=== PATIENT | female | born 1960 | race Caucasian/White ===

== ENCOUNTER 2020-09-24 12:59 | Outpatient (REF) | payer OTHER, SELFPAY ==
--- NOTE | ~2020-09-24 | MM_ITS ---
EXAMINATION: MM DIAGNOSTIC DIGITAL BREAST TOMOSYNTHESIS, LEFT TARGETED LEFT BREAST ULTRASOUND CLINICAL INFORMATION: Six-month follow up left breast density deep medially. Patient status post breast reduction surgery. The lifetime risk of breast cancer based on the Tyrer-Cuzick Model is 11.0%. COMPARISON: Mammography: 03/25/2020 and studies dating back to 01/31/2014. TECHNIQUE: Digital breast tomosynthesis is performed in both the craniocaudal and mediolateral oblique views along with computer-aided detection (CAD). Synthesized 2D images are generated from the tomosynthesis. Targeted left breast ultrasound deep medial aspect. FINDINGS: The breasts are almost entirely fatty (ACR BI-RADS breast composition Category a). No new abnormal dominant mass or suspicious grouping of microcalcifications identified. No region of architectural distortion. There is again noted to be 3 mm density deep medial aspect of the left breast with question fatty notch. No spiculated margins identified. Targeted left breast ultrasound was then performed and demonstrates a well-circumscribed slightly hypoechoic nodule with hyperechoic central region measuring approximately 3 x 3 x 4 mm in size. No definite distal sound enhancement or shadowing is seen. There is some vascularity in the region of the questioned notch and this likely represents an intramammary lymph node. Results are discussed with the patient at time of visit. MM/MM tomosynthesis diagnostic LT IMPRESSION: No significant change from prior study. The density about the deep medial aspect of the left breast may represent an intramammary lymph node. ASSESSMENT: BI-RADS 3: Probably Benign. RECOMMENDATION: Diagnostic mammography in 6 months. This patient's information was entered into a reminder system with a target due date for their next mammogram.
--- NOTE | ~2020-09-24 | US_ITS ---
EXAMINATION: US DIAGNOSTIC ULTRASOUND BREAST, LEFT CLINICAL INFORMATION: Nodular density not o'clock position 10 cm from the nipple.. COMPARISON: Mammography of same day and ultrasound of March 25, 2020. TECHNIQUE: Ultrasound of the breast is performed with real-time lopez scale imaging and color Doppler. FINDINGS: Targeted left breast ultrasound was then performed and demonstrates a well-circumscribed slightly hypoechoic nodule with hyperechoic central region measuring approximately 3 x 3 x 4 mm in size. No definite distal sound enhancement or shadowing is seen. There is some vascularity in the region of the questioned notch and is likely represents an intramammary lymph node. Results are discussed with the patient at time of visit. US/US breast LT limited IMPRESSION: No significant change from prior study. The density about the deep medial aspect of the left breast may represent an intramammary lymph node. ASSESSMENT: BI-RADS 3: Probably Benign RECOMMENDATION: Diagnostic mammography in 6 months.
== END 2020-09-24 13:00 | disposition home or self-care (01) ==
LOC: HO.MAMMO 12:59
PROVIDERS: PCP Physician Assistant; Visit Provider Obstetrics & Gynecology
DX: R92.8 Other abnormal and inconclusive findings on diagnostic imaging of breast (principal)
CPT/HCPCS: 76642; 77061; 77065

== ENCOUNTER 2021-03-09 08:09 | Outpatient (REF) | payer OTHER, SELFPAY ==
[2021-03-09 08:52] LABS: Hemoglobin 13.7 g/dl (12.0-16.0); Mean Corpuscular HGB Conc 32.6 g/dl (31.0-35.0); Mean Corpuscular Hemoglobin 31.4 pg (27.0-33.0); Mean Corpuscular Volume 96.1 fL (80-98); Platelet Count 330 X10*3/uL (160-400); Red Blood Count 4.37 X10*6/uL (4.20-5.50); Red Cell Distribution Width 13.7 % (11.0-16.0); White Blood Count 5.7 X10*3/uL (4.8-10.8)
[2021-03-09 08:57] LABS: Estimated Average Glucose 88 mg/dL; Hemoglobin A1c % 4.7 %
[2021-03-09 09:46] LABS: Alanine Aminotransferase 34 U/L (0-31); Albumin Level 4.2 g/dL (3.5-5.0); Alkaline Phosphatase 115 U/L (39-117); Anion Gap 13 (12-20); Aspartate Amino Transferase 26 U/L (5-31); Bilirubin Total 0.6 mg/dL (0.0-1.0); Blood Urea Nitrogen 12 mg/dL (9-16); Calcium 9.6 mg/dL (8.4-10.2); Carbon Dioxide 26 mmol/L (22-29); Chloride 106 mmol/L (96-108); Cholesterol 162 mg/dL; Estimated Glomerular Filt Rate > 60; Glucose Fasting 87 mg/dL (60-99); HDL Cholesterol 67 mg/dL; LDL Cholesterol Calculated 73 mg/dl; Potassium 4.3 mmol/L (3.3-5.1); Sodium 141 mmol/L (135-145); Total Protein 7.4 g/dL (6.5-8.0); Triglycerides 111 mg/dL
[2021-03-09 09:59] LABS: TSH reflex Free T4 1.87 uIU/mL (0.32-4.0)
== END 2021-03-09 08:10 | disposition home or self-care (01) ==
LOC: HO.LAB 08:09
PROVIDERS: PCP Physician Assistant; Visit Provider Physician Assistant
DX: I10 Essential (primary) hypertension (principal); Z13.220 Encounter for screening for lipoid disorders; Z13.29 Encounter for screening for other suspected endocrine disorder; Z13.1 Encounter for screening for diabetes mellitus
CPT/HCPCS: 36415; 80053; 80061; 83036; 84443; 85027

== ENCOUNTER → 2021-03-24 11:26 | Outpatient (BNVA) | payer OTHER, SELFPAY | PROVIDERS: PCP Physician Assistant; Referring Provider Physician Assistant; Visit Provider Physician Assistant ==

== ENCOUNTER 2021-04-01 13:46 | Outpatient (REF) | payer OTHER, SELFPAY ==
--- NOTE | ~2021-04-01 | MM_ITS ---
EXAMINATION: MM DIAGNOSTIC DIGITAL BREAST TOMOSYNTHESIS, BILATERAL US DIAGNOSTIC ULTRASOUND BREAST, LEFT CLINICAL INFORMATION: Due for yearly. Also follow-up probable benign nodule posterior medial left breast. Prior history reduction mammoplasty decades ago. The lifetime risk of breast cancer based on the Tyrer-Cuzick Model is 8%. COMPARISON: Mammography: 09/24/2020, 03/25/2020, 02/14/2020 (BI-RADS 0), outside synthesized [facility] mammography images 12/05/2018 there are, 12/04/2017, [facility], [place], [place]). TECHNIQUE: Digital breast tomosynthesis is performed in both the craniocaudal and mediolateral oblique views along with computer-aided detection (CAD). Synthesized 2D images are generated from the tomosynthesis. Additional left CC view is provided. Ultrasound left breast is targeted to the inner quadrant. Grayscale imaging is performed without and with harmonics and color and power Doppler. FINDINGS: The breasts are almost entirely fatty (ACR BI-RADS breast composition Category a). Background fibroglandular and stromal densities are stable. There is no interval mass or architectural abnormality. No developing density. There are no abnormal calcifications. The axilla and skin contours are unremarkable. The small nodule posterior medial breast adjacent to chest wall is beyond field of view on current exam and also beyond field of view on the outside mammography studies. Ultrasound left breast demonstrates stable circumscribed hypoechoic nodule deep medial left breast approximately 10 cm from nipple measuring under 5 mm. The size and appearance is similar to prior targeted ultrasound exams. There is a punctate focus of peripheral internal color flow again seen, better appreciated with power Doppler. No significant change from prior diagnostic exams. Results are discussed with the patient at time of visit. Will reassess left breast nodule in 6 months with targeted ultrasound. MM/MM tomosynthesis diagnostic BI IMPRESSION: 1. Left: Small stable nodule deep medial breast, uncertain chronicity (beyond field of view on outside mammography studies). 2. Right: No mammographic evidence of malignancy. ASSESSMENT: BI-RADS 3: Probably Benign RECOMMENDATION: Targeted left breast ultrasound in 6 months. This patient's information was entered into a reminder system with a target due date for their next mammogram.
== END 2021-04-01 13:47 | disposition home or self-care (01) ==
LOC: HO.MAMMO 13:46
PROVIDERS: Visit Provider Obstetrics & Gynecology
DX: R92.8 Other abnormal and inconclusive findings on diagnostic imaging of breast (principal)
CPT/HCPCS: 76642; 77062; 77066

== ENCOUNTER 2021-06-03 09:12 | Day surgery (SDC) | payer OTHER, SELFPAY ==
[2021-05-28 11:18] VITALS: BMI 28.5
--- NOTE | 2021-06-02 12:06 | HO.ANESPROP2 ---
Documented by User: Jeniffer Huff NP 06/02/21 12:07 HPI - Anesthesia Eval Consult details Narrative: 60yo F for Colonoscopy PMFSH Active Problems Active Problems: All Active Problems (Updated 03/29/21 @ 16:33 by Tello Tapia PA-C) MDD (major depressive disorder) (Acute) Perimenopausal vasomotor symptoms (Acute) Screening for diabetes mellitus (DM) (Acute) Screening for hypothyroidism (Acute) Screening for hypercholesterolemia (Acute) Annual physical exam (Acute) Colon cancer screening (Acute) Arm paresthesia, left (Acute) Neck pain (Acute) Allergic rhinitis (Acute) Anxiety and depression (Acute) Scar tissue (Acute) Post-COVID syndrome (Acute) Past Medical History Medical History Anxiety and depression Normal colonoscopy Post-COVID syndrome Scar tissue Family History Family History Father Non-Hodgkin lymphoma Mother No problems noted. Brother Heart problem Other Mental health disorder Surgical History Surgical History History of section History of reduction mammoplasty Hx of cholecystectomy Social History Social History Housing: House Are you a primary childbirth and infant care teacher to a significant other at home: No Do you presently have visiting nurse or other home services: No Alcohol intake: current Alcohol intake frequency: a few times a week Alcohol type: wine Patient Tobacco Use Status: Never used Tobacco Use of substances other than those prescribed or required for medical reasons: No Have you been hit, kicked, punched, or otherwise hurt by someone within the past year? If so, by whom?: No Are you DNR?: No Advance Directives: No Advance Directives Information Provided: No Advance Directives on File: No Recently lost weight without trying: No Eating poorly because of decreased appetite: No Nutrition Risks: No Nutritional Risk Patient : No service: No Current occupational status: retired Meds Allergies Allergy/AdvReac Type Severity Reaction Status Date / Time metoclopramide [Reglan] Allergy Unknown disorientated, Verified 05/28/21 11:14 Tachycardia, anxious Seasonal Allergies Allergy Sneezing, Verified 11/12/21 11:16 Cough, Allergic Cold Home Medications Medication Instructions Recorded Confirmed Last Taken Type estradiol 1 mg tablet 1 mg PO DAILY 07/01/20 05/28/21 Unknown History progesterone micronized 200 mg 200 mg PO BEDTIME 07/01/20 05/28/21 Unknown History capsule ascorbic acid (vitamin C) 500 mg 500 mg PO DAILY 05/28/21 05/28/21 Unknown History tablet (Vitamin C) calcium carbonate-vitamin D3 600 1 tab PO DAILY 05/28/21 05/28/21 Unknown History mg calcium-200 unit chewable tablet cholecalciferol (vitamin D3) 25 25 mcg PO DAILY 05/28/21 05/28/21 Unknown History mcg (1,000 unit) capsule (Vitamin D3) Exam Exam Date and Time: June 02, 2021 1206 Height,Weight and Vital Signs: Height 5 ft 4 in Weight 75.296 kg Pertinent Lab Results Pertinent Lab Results: Laboratory Tests 03/09/21 03/09/21 08:22 08:22 WBC 5.7 Hgb 13.7 Hct 42.0 Plt Count 330 Sodium 141 Potassium 4.3 Chloride 106 Carbon Dioxide 26 BUN 12 Creatinine 0.94 Assessment and Plan Assessment Anesthesia Assessment: Chart Reviewed Documented by User: Kiara Dominguez MD 06/03/21 10:21 [facility] Past Medical History Medical History Anxiety and depression Normal colonoscopy Post-COVID syndrome Scar tissue Family History Family History Father Non-Hodgkin lymphoma Mother No problems noted. Brother Heart problem Other Mental health disorder Surgical History Surgical History History of section History of reduction mammoplasty Hx of cholecystectomy History of Problems with Anesthesia: No Social History Social History Housing: House Are you a primary childbirth and infant care teacher to a significant other at home: No Do you presently have visiting nurse or other home services: No Alcohol intake: current Alcohol intake frequency: a few times a week Alcohol type: wine Patient Tobacco Use Status: Never used Tobacco Use of substances other than those prescribed or required for medical reasons: No Have you been hit, kicked, punched, or otherwise hurt by someone within the past year? If so, by whom?: No Are you DNR?: No Advance Directives: No Advance Directives Information Provided: No Advance Directives on File: No Recently lost weight without trying: No Eating poorly because of decreased appetite: No Nutrition Risks: No Nutritional Risk Patient : No service: No Current occupational status: retired Meds Allergies Allergy/AdvReac Type Severity Reaction Status Date / Time metoclopramide [Reglan] Allergy Unknown disorientated, Verified 05/28/21 11:14 Tachycardia, anxious Seasonal Allergies Allergy Sneezing, Verified 05/28/21 11:16 Cough, Allergic Cold Home Medications Medication Instructions Recorded Confirmed Last Taken Type estradiol 1 mg tablet 1 mg PO DAILY 07/01/20 05/28/21 Unknown History progesterone micronized 200 mg 200 mg PO BEDTIME 07/01/20 05/28/21 Unknown History capsule ascorbic acid (vitamin C) 500 mg 500 mg PO DAILY 05/28/21 05/28/21 Unknown History tablet (Vitamin C) calcium carbonate-vitamin D3 600 1 tab PO DAILY 05/28/21 05/28/21 Unknown History mg calcium-200 unit chewable tablet cholecalciferol (vitamin D3) 25 25 mcg PO DAILY 05/28/21 05/28/21 Unknown History mcg (1,000 unit) capsule (Vitamin D3) Exam Airway Mallampati Class: II TM Dist: >3cm Neck ROM: Full Loose/Missing/Broken Teeth: No Heart: RRR Lungs: CTA Assessment and Plan Assessment Anesthesia Assessment: Anesthesia Plan Discussed Final Anesthetic Review History of Problems with Anesthesia: No NPO: Yes ASA Class: II Final Preanesthetic Review: Meds/Allgs Chart Reviewed, Consent Obtained/Reviewed and Anes Risks/Benef Reviewed Patient Risk: Low Procedure Risk: Low Anesthetic Plan Anesthetic Plan: MAC: Disposition: Standard PACU
--- NOTE | 2021-06-03 09:27 | MHC.SHP ---
Pre-Procedural Eval Section A Date of Service: 06/03/21 Section B Chief Complaint: Screening Relevant Family History (Specify if Yes): No Relevant Social History: None Present Medications: see Short Stay Collaborative assessment Medical History: Significant History (Anxiety and depression Normal colonoscopy Post-COVID syndrome Scar tissue) History of Previous Operations: Relevant previous surgery/procedure and date(s) (History of section History of reduction mammoplasty Hx of cholecystectomy) Allergies: Allergies Allergy/AdvReac Type Severity Reaction Status Date / Time metoclopramide [Reglan] Allergy Unknown disorientated, Verified 05/28/21 11:14 Tachycardia, anxious Seasonal Allergies Allergy Sneezing, Verified 05/28/21 11:16 Cough, Allergic Cold Review of Systems Sugical H&P ROS: Negative: Constitution, Cardiovascular, Respiratory, Neurological, Psychiatric, Hem-Onc, Allergic/Immunologic, Gastrointestinal, Genitourinary, Musculoskeletal, Integumentary, Endocrine and Eyes/Ears/Nose/Throat Exam Surgical H&P Exam: Normal: HEENT, Normal: Heart, Normal: Lungs, Normal: Extremities, Normal: Abdomen, Normal: Skin and Normal: Neurological Plan Diagnosis/Plan: Unchanged I have reviewed the history and physical and performed a pertinent physical examination on my patient. No changes have occurred unless specified.
[2021-06-03 09:44] VITALS: BP 141/78; PULSE 82; RESP 16; TEMP 37.2; O2SAT 97
[2021-06-03] MEDS: Lactated Ringers 1,000 ML 100 ML IVCONT (09:49)
--- NOTE | 2021-06-03 10:31 | P.BOP_ITS ---
Brief Operative Note Date of Service: 06/03/21 Pre-op diagnosis: screening colonoscopy Post-op diagnosis: same Procedure: see op note Surgeon: Sal Holbrook MD Anesthesia: MAC Was an Questioned Documents Examiner used for this Procedure?: No Estimated blood loss (mL): 0 Condition: stable Disposition: PACU
--- NOTE | 2021-06-03 10:31 | W.PM.OPN ---
Operative Note Operative Note Date of Service: 06/03/21 Narrative: Operative Information Procedure Description: Colonoscopy COLONOSCOPY Instrument: Olympus variable stiffness pediatric scope 190L Colonoscopy Monitoring: Vital signs and clinical assessment, continuous EKG monitoring, Pulse oximetry, Carbon Dioxide monitoring and blood pressure monitoring were done throughout the procedure. Colon withdrawal time was 8 minutes. Procedure: The patient was placed in the left lateral decubitis position and pre-procedure medications were administered. After a digital rectal examination of the ano-rectum, the video colonoscope was inserted into the rectum and advanced through the colon to the cecum/TI. The colonoscope was slowly withdrawn in a retrograde panoramic fashion and the colon mucosa was carefully examined including a retroflexed view of the rectum. Findings and interventions are described below. Procedure Difficulty:moderate, pressure applied due to looping Findings: Terminal Ileum-normal Cecum:normal Ascending Colon: normal Transverse Colon -normal Descending Colon:normal Sigmoid Colon: normal Rectum: Retroflexion with small internal hemorrhoids, grade I, x 2 sessile polyps measuring 8-10 mm removed with cold snare and retrieved Anorectum - normal Colon preparation: [place] Bowel Preparation Scale Right colon; 2 Transverse colon: 2 Left colon; 2 (0 = Unprepared colon segment with mucosa not seen due to solid stool that cannot be cleared. 1 = Portion of mucosa of the colon segment seen, but other areas of the colon segment not well seen due to staining, residual stool and/or opaque liquid. 2 = Minor amount of residual staining, small fragments of stool and/or opaque liquid, but mucosa of colon segment seen well. 3 = Entire mucosa of colon segment seen well with no residual staining, small fragments of stool or opaque liquid) Impression and Post Procedure Diagnosis: polyps internal hemorrhoids Plan: High fiber diet leaflet Avoid straining at stool, epsom salts and sitz bath, anusol supps or cream Repeat Colonoscopy in 5 years if adenomatous polyps, 10 years if hyperplastic or earlier if clinically indicated Above findings were reviewed with the patient and relevant handouts were provided if indicated.
[2021-06-03 11:20] VITALS: BP 111/57; PULSE 66; RESP 15; TEMP 36.4; O2SAT 100
[2021-06-03 11:39] VITALS: BP 120/65; PULSE 72; RESP 16; TEMP 36.5; O2SAT 98
== END 2021-06-03 12:20 | disposition home or self-care (01) ==
PROVIDERS: PCP Physician Assistant; Visit Provider Internal Medicine Gastroenterology
PROC: 0DJD8ZZ Inspection of Lower Intestinal Tract, Via Natural or Artificial Opening Endoscopic (ICD-10-PCS; CPT 45378; principal; 2021-06-03 10:20)
DX: Z12.11 Encounter for screening for malignant neoplasm of colon (principal); D12.8 Benign neoplasm of rectum; K64.0 First degree hemorrhoids; F32.9 Major depressive disorder, single episode, unspecified; U09.9 Post COVID-19 condition, unspecified; Z79.899 Other long term (current) drug therapy; Z88.8 Allergy status to other drugs, medicaments and biological substances; Z90.49 Acquired absence of other specified parts of digestive tract
CPT/HCPCS: 45385; 88305

== ENCOUNTER 2021-10-19 10:57 | Outpatient (REF) | payer OTHER, SELFPAY ==
--- NOTE | ~2021-10-19 | US_ITS ---
EXAMINATION: US DIAGNOSTIC ULTRASOUND BREAST, LEFT CLINICAL INFORMATION: Follow-up probable benign nodule posterior medial left breast. Prior history reduction mammoplasty decades ago. COMPARISON: Targeted ultrasound left breast 04/01/2021, 03/27/2021, 03/25/2020. TECHNIQUE: Ultrasound of the left breast is targeted to the lower inner quadrant. Grayscale imaging and color Doppler are performed without and with harmonics. FINDINGS: The small circumscribed nodule for follow-up 9:00 position 10 cm from nipple is stable, measuring under 5 mm. Margins are smooth. There is a punctate peripheral focus of color flow. No increasing size or posterior shadowing. Given the stability, finding is considered to be benign. Results are provided to the patient at time of visit by the technologist. US/US breast LT limited IMPRESSION: Small circumscribed nodule for follow-up 9:00 position is stable from prior targeted ultrasound studies. ASSESSMENT: BI-RADS 2: Benign RECOMMENDATION: Annual bilateral mammography. This patient's information was entered into a reminder system with a target due date for their next mammogram.
== END 2021-10-19 10:58 | disposition home or self-care (01) ==
LOC: HO.MAMMO 10:57
PROVIDERS: PCP Physician Assistant; Visit Provider Obstetrics & Gynecology
DX: R92.8 Other abnormal and inconclusive findings on diagnostic imaging of breast (principal)
CPT/HCPCS: 76642

== ENCOUNTER 2022-01-18 15:13 | Outpatient (REF) | payer OTHER, SELFPAY ==
--- NOTE | ~2022-01-18 | XR_ITS ---
EXAMINATION: XR CHEST CLINICAL INFORMATION: Bronchitis acute versus chronic COMPARISON: None TECHNIQUE: 2 views of the chest were obtained. FINDINGS: No significant abnormality is noted involving the heart, lungs, mediastinum, bony thorax or soft tissues. XR/XR chest 2V IMPRESSION: Unremarkable chest examination.
== END 2022-01-18 15:14 | disposition home or self-care (01) ==
LOC: HO.XRAY 15:13
PROVIDERS: PCP Physician Assistant; Visit Provider Physician Assistant
DX: J40 Bronchitis, not specified as acute or chronic (principal)
CPT/HCPCS: 71046

== ENCOUNTER 2022-02-04 08:23 | Outpatient (REF) | payer OTHER, SELFPAY ==
[2022-02-04 09:45] LABS: Alanine Aminotransferase 21 U/L (0-31); Albumin Level 4.1 g/dL (3.5-5.0); Alkaline Phosphatase 102 U/L (39-117); Anion Gap 13 (12-20); Aspartate Amino Transferase 20 U/L (5-31); Bilirubin Total 0.3 mg/dL (0.0-1.0); Blood Urea Nitrogen 18 mg/dL (9-16); Calcium 9.2 mg/dL (8.4-10.2); Carbon Dioxide 23 mmol/L (22-29); Chloride 107 mmol/L (96-108); Cholesterol 167 mg/dL; Estimated Glomerular Filt Rate > 60; Glucose Fasting 79 mg/dL (60-99); HDL Cholesterol 53 mg/dL; LDL Cholesterol Calculated 94 mg/dl; Potassium 4.4 mmol/L (3.3-5.1); Sodium 139 mmol/L (135-145); Total Protein 7.3 g/dL (6.5-8.0); Triglycerides 100 mg/dL
[2022-02-04 10:08] LABS: TSH reflex Free T4 2.18 uIU/mL (0.32-4.0)
== END 2022-02-04 08:24 | disposition home or self-care (01) ==
LOC: HO.LAB 08:23
PROVIDERS: PCP Physician Assistant; Visit Provider Physician Assistant
DX: Z13.1 Encounter for screening for diabetes mellitus (principal); Z13.220 Encounter for screening for lipoid disorders; Z13.29 Encounter for screening for other suspected endocrine disorder
CPT/HCPCS: 36415; 80053; 80061; 84443

== ENCOUNTER 2022-04-12 10:58 | Outpatient (REF) | payer OTHER, SELFPAY ==
--- NOTE | ~2022-04-12 | MM_ITS ---
EXAMINATION: MM SCREENING DIGITAL BREAST TOMOSYNTHESIS, BILATERAL CLINICAL INFORMATION: Screening. Asymptomatic. Remote reduction mammoplasty, decades ago. The lifetime risk of breast cancer based on the Tyrer-Cuzick Model is 8%. COMPARISON: Mammography: 04/01/2021, 09/24/2020, 03/25/2020, 02/14/2020; [facility], [place], [place]). TECHNIQUE: Digital breast tomosynthesis is performed in both the craniocaudal and mediolateral oblique views along with computer-aided detection (CAD). Synthesized 2D images are generated from the tomosynthesis. FINDINGS: The breasts are almost entirely fatty (ACR BI-RADS breast composition Category a). Parenchymal pattern is similar to prior studies. There is minor bilateral scarring and some predominantly dermal calcifications inferior breasts consistent with the remote prior reduction mammoplasty. Background stromal markings are stable. There is no developing density or interval architectural abnormality or mass or abnormal calcifications. The axilla are unremarkable. No significant changes. MM/MM tomosynthesis screening BI IMPRESSION: No mammographic evidence of malignancy. ASSESSMENT: BI-RADS 2: Benign RECOMMENDATION: Routine annual mammography screening. This patient's information was entered into a reminder system with a target due date for their next mammogram.
== END 2022-04-12 10:59 | disposition home or self-care (01) ==
LOC: HO.MAMMO 10:58
PROVIDERS: PCP Physician Assistant; Visit Provider Obstetrics & Gynecology
DX: Z12.31 Encounter for screening mammogram for malignant neoplasm of breast (principal)
CPT/HCPCS: 77063; 77067

== ENCOUNTER 2022-10-12 11:12 | Emergency (ER) | payer OTHER, SELFPAY ==
--- NOTE | ~2022-10-12 | XR_ITS ---
EXAMINATION: XR ANKLE, LEFT CLINICAL INFORMATION: Pain after injury COMPARISON: None available. TECHNIQUE: AP, lateral, and mortise views of the left ankle. FINDINGS: There is a nondisplaced oblique fracture of the medial malleolus at the junction with the tibial plafond and marked anterolateral soft tissue swelling. No additional fractures are evident. The ankle mortise appears preserved. Small heel spur. XR/XR ankle LT min 3V IMPRESSION: Nondisplaced oblique fracture of the medial malleolus at the junction with the tibial plafond. The orientation of the fracture and marked soft tissue swelling laterally is compatible with an inversion injury mechanism.
[2022-10-12 11:30] VITALS: BP 123/67; PULSE 81; RESP 19; TEMP 36.6; O2SAT 99; BMI 30.4
--- NOTE | 2022-10-12 11:30 | ED_ITS ---
HPI - Extremity Injury (Lower) General Chief Complaint: Extremity Injury, Lower <TETE Gregory - Last Filed: 10/12/22 11:32> Stated Complaint: L ankle inj <TETE Gregory - Last Filed: 10/12/22 11:32> Time Seen by Provider: 10/12/22 12:02 <TETE Gregory - Last Filed: 10/12/22 11:32> Source: patient <Deisi Paez NP - Last Filed: 10/12/22 14:50> Limitations: no limitations <Deisi Paez NP - Last Filed: 10/12/22 14:50> History of Present Illness HPI Narrative: patient is a 61yo female presenting for left ankle pain and swelling following a twist of her ankle when she missed the last step walking down stairs 2 hours ago. Patient stated that she felt a pop sensation like when your knuckles get stiff and you crack them which was followed by swelling on the lateral aspect of her left ankle. Patient stated she broke her right ankle in the past and the current pain was similar in nature. She stated she took naproxen 440mg with minimal pain relief. denied numbness or tingling proximal or distal to the ankle. denied ecchymosis. <Deisi Paez NP - Last Filed: 10/12 14:50> MD complaint: ankle injury <Deisi Paez NP - Last Filed: 10/12/22 14:50> Onset (ago): hour(s) (2) <Deisi Paez NP - Last Filed: 10/12/22 14:50> Injury: Left: ankle <Deisi Paez NP - Last Filed: 10/12/22 14:50> Type of Injury: unknown <Deisi Paez NP - Last Filed: 10/12/22 14:50> Place: home <Deisi Paez NP - Last Filed: 10/12/22 14:50> Severity: severe <Deisi Paez NP - Last Filed: 10/12/22 14:50> Severity scale (1-10): 9 <Deisi Paez NP - Last Filed: 10/12/22 14:50> Relieving factors: NSAID and cold therapy <Deisi Paez NP - Last Filed: 10/12/22 14:50> Exacerbating factors: weight bearing, movement and palpation <Deisi Paez NP - Last Filed: 10/12/22 14:50> Context: other (missed last step) <Deisi Paez NP - Last Filed: 10/12/22 14:50> Associated symptoms: snap/pop sensation and swelling <Deisi Paez NP - Last Filed: 10/12/22 14:50> Other symptoms: none <Deisi Paez NP - Last Filed: 10/12/22 14:50> Treatments prior to arrival: NSAIDS <Deisi Paez NP - Last Filed: 10/12/22 14:50> Related Data Home Medications: Home Medications Medication Instructions Recorded Confirmed estradiol 1 mg tablet 1 mg PO DAILY 07/01/20 10/21/22 progesterone micronized 200 mg 200 mg PO BEDTIME 07/01/20 10/21/22 capsule ascorbic acid (vitamin C) 500 mg 500 mg PO DAILY 05/28/21 10/21/22 tablet (Vitamin C) calcium carbonate-vitamin D3 600 1 tab PO DAILY 05/28/21 10/21/22 mg calcium-200 unit chewable tablet cholecalciferol (vitamin D3) 25 25 mcg PO DAILY 05/28/21 10/21/22 mcg (1,000 unit) capsule (Vitamin D3) Previous Rx's Medication Instructions Recorded fluticasone propionate 50 2 spray intranasal DAILY 1 month 07/07/21 mcg/actuation nasal #16 grams spray,suspension (Allergy Relief (fluticasone)) bupropion HCl 200 mg tablet,12 hr 200 mg PO BID 90 days #180 tabs 01/31/22 sustained-release lorazepam 1 mg tablet 1 mg PO ONCE anxiety 1 day #1 tab 10/17/22 <TETE Gregory - Last Filed: 10/12/22 11:32> Allergies/Adverse Reactions: Allergies Allergy/AdvReac Type Severity Reaction Status Date / Time metoclopramide [Reglan] Allergy Unknown disorientated, Verified 11/11/22 11:01 Tachycardia, anxious Seasonal Allergies Allergy Sneezing, Verified 11/11/22 11:01 Cough, Allergic Cold <Kelsi Street PA - Last Filed: 10/12/22 11:32> Review of Systems Review of Systems: Yes all other systems are reviewed and are negative <Deisi Paez NP - Last Filed: 10/12/22 14:50> Constitutional: Constitutional: Reports no additional constitutional complaints, Denies body ache(s), Denies chills, Denies fever(s), Denies headache (s) and Denies weakness <Deisi Paez NP - Last Filed: 10/12/22 14:50> Eyes: Eyes: Reports no additional eye complaints and Denies change in vision <Deisi Paez NP - Last Filed: 10/12/22 14:50> ENT: Reports system reviewed and no additional complaints, except as documented, Denies dizziness, Denies headache(s), Denies nasal congestion, Denies nasal discharge and Denies neck pain <Deisi Paez NP - Last Filed: 10/12/22 14:50> Cardiovascular: Cardiovascular: Reports no additional cardiovascular complaints, Denies chest pain, Denies leg edema and Denies dyspnea <Deisi Paez NP - Last Filed: 10/12/22 14:50> Respiratory: Respiratory: Reports no additional respiratory complaints, Denies cough and Denies dyspnea <Deisi Paez NP - Last Filed: 10/12/22 14:50> Gastrointestinal: Gastrointestinal: Reports no additional gastrointestinal complaints, Denies abdominal pain, Denies diarrhea, Denies nausea and Denies vomiting <Deisi Paez NP - Last Filed: 10/12/22 14:50> Genitourinary: Genitourinary: Reports no additional female genitourinary complaints and Denies urinary incontinence <Deisi Paez NP - Last Filed: 10/12/22 14:50> Musculoskeletal: Musculoskeletal: Reports no additional musculoskeletal complaints, Denies back pain, Reports arthralgias, Reports joint swelling, Denies neck pain, Denies numbness and Denies tingling <Deisi Paez NP - Last Filed: 10/12/22 14:50> Integumentary/Breasts: Skin/Breast: Reports system reviewed and no additional complaints, except as docu and Denies rash <Deisi Paez NP - Last Filed: 10/12/22 14:50> Neurologic: Reports system reviewed and no additional complaints, except as documented, Denies dizziness, Denies headache(s), Denies numbness, Denies tingling and Denies weakness <Deisi Paez NP - Last Filed: 10/12/22 14:50> [facility] Past Medical History Attestation statement: The following information was validated with the patient. <Deisi Paez NP - Last Filed: 10/12/22 14:50> Source: old records reviewed and nursing notes reviewed <Deisi Paez NP - Last Filed: 10/12/22 14:50> Medical History: Medical History Anxiety and depression Normal colonoscopy PONV (postoperative nausea and vomiting) Post-COVID syndrome Scar tissue <TETE Gregory - Last Filed: 10/12/22 11:32> Surgical History: Surgical History History of section History of reduction mammoplasty Hx of cholecystectomy <TETE Gregory - Last Filed: 10/12/22 11:32> Family History Family History: Family History Father Non-Hodgkin lymphoma Mother No problems noted. Brother Heart problem Other Mental health disorder <TETE Gregory - Last Filed: 10/12/22 11:32> Social History Social History: Social History Housing: House Are you a primary career services coordinator to a significant other at home: No Do you presently have visiting nurse or other home services: No Alcohol intake: current Alcohol intake frequency: holidays/special occasions only Alcohol type: wine Patient Tobacco Use Status: Never used Tobacco service: No Current occupational status: retired Cognitive needs: No Hearing needs: No Vision needs: No <TETE Gregory - Last Filed: 10/12/22 11:32> Physical Exam Vital Signs: Vital Signs: Last Vital Signs Temp 98 F 10/12/22 11:30 Pulse 82 10/12/22 12:06 Resp 18 10/12/22 12:06 BP 107/69 10/12/22 12:06 Pulse Ox 99 10/12/22 12:06 O2 Del Method Room Air 10/12/22 12:06 BMI result Body Mass Index 30.4 <TETE Gregory - Last Filed: 10/12/22 11:32> Vital Signs: Last Vital Signs Temp 98 F 10/12/22 11:30 Pulse 82 10/12/22 12:06 Resp 18 10/12/22 12:06 BP 107/69 10/12/22 12:06 Pulse Ox 99 10/12/22 12:06 O2 Del Method Room Air 10/12/22 12:06 BMI result Body Mass Index 30.4 <Deisi Paez NP - Last Filed: 10/12/22 14:50> Extrem: Other: effusion noted on the lateral aspect of the left ankle with no erythema or warmth. lateral ankle and dorsal aspect of left slasher tender helper to palpation. Pain with passive and active ROM. pulses intact. no loss of sensation. proximal and distal ROM intact. negative lucero, no posterior ankle pain Unable to assess ligamental laxity d/t swelling/pain <Deisi Paez NP - Last Filed: 10/12/22 14:50> Course Course Course Narrative: RME - 61 yo female presents to the ER c/o left ankle pain and swelling after she missed the last step in her stairs at home resulting in an inversion injury. Can only bear a very slight amount of weight. In triage she has moderate swelling to lateral mallelous area. NV intact distally. Plan: XR ankle to r/o fracture <TETE Gregory - Last Filed: 10/12/22 11:32> Reevaluation(s) Reevaluation #1: X-ray of the ankle shows nondisplaced oblique fracture of the medial malleolus. There is significant tenderness and swelling and I am unable to assess any ligamental laxities so there is a concern for ligamental injury as well. Therefore patient will be placed in a posterior splint. She has crutches at home. I recommend she follow up outpatient with Orthopedics. Reviewed worrisome signs and symptoms of when to return to the emergency room. Comfort able for discharge home. <Deisi Paez NP - Last Filed: 10/12/22 14:50> Medical Decision Making Medical Decision Making MDM Narrative: patient is a 61yo female presenting for left ankle pain and swelling status post inversion injury. Patient with tenderness over the lateral and medial ankle with significant swelling. Unable to assess ligamental laxity due to swelling and pain. Will check x-rays <Deisi Paez NP - Last Filed: 10/12/22 14:50> Differential Diagnosis Differential Diagnoses: The differential diagnosis associated with the presentation includes <Deisi Paez NP - Last Filed: 10/12/22 14:50> Fracture, sprain, ligamental injury Low concern for vascular injury <Deisi Paez NP - Last Filed: 10/12/22 14:50> Independent Interpretation I performed an independent interpretation of an: Plain X-Ray <Deisi Paez NP - Last Filed: 10/12/22 14:50> Interpretation: I independently reviewed that x-ray and agree with radiologist's report <Deisi Paez NP - Last Filed: 10/12/22 14:50> Radiology Impression Discussion of test interpretation with radiology: I have reviewed the radiologist's reading. <Deisi Paez NP - Last Filed: 10/12/22 14:50> Radiologist Impression: COMPARISON: None available.? TECHNIQUE: AP, lateral, and mortise views of the left ankle. FINDINGS: There is a nondisplaced oblique fracture of the medial malleolus at the junction with the tibial plafond and marked anterolateral soft tissue swelling. No additional fractures are evident. The ankle mortise appears preserved. Small heel spur.? XR/XR ankle LT min 3V IMPRESSION: Nondisplaced oblique fracture of the medial malleolus at the junction with the tibial plafond. The orientation of the fracture and marked soft tissue swelling laterally is compatible with an inversion injury mechanism. <Deisi Paez NP - Last Filed: 10/12/22 14:50> Independent Historian Clinical information obtained from an independent historian. History obtained from or confirmed by: Spouse <Deisi Paez NP - Last Filed: 10/12/22 14:50> Procedures Orthopedic Splinting/Casting Injury #1: Side: left <Deisi Paez NP - Last Filed: 10/12/22 14:50> Lower Extremity Injury Location: ankle <Deisi Paez NP - Last Filed: 10/12/22 14:50> Lower Extremity Immobilizer: posterior splint <Deisi Paez NP - Last Filed: 10/12/22 14:50> Additional Comments: Patient has her own crutches <Deisi Paez NP - Last Filed: 10/12/22 14:50> Discharge Plan Discharge Clinical Impression: Ankle fracture <TETE Gregory - Last Filed: 10/12/22 11:32> Patient Disposition: Home, Self-Care <TETE Gregory - Last Filed: 10/12/22 11:32> Instructions: Ankle Fracture (DC), Splint Care (ED) <TETE Gregory - Last Filed: 10/12/22 11:32> Additional Instructions: Rest, ice, elevation Nonweightbearing with splint on until follow-up with orthopedic naproxen or tylenol for pain as needed <TETE Gregory - Last Filed: 10/12/22 11:32> Prescriptions: No Action fluticasone propionate [Allergy Relief (fluticasone)] 50 mcg/actuation spray,suspension 2 spray intranasal DAILY 30 Days Qty: 16 3RF Rx Instructions: administer into each nostril bupropion HCl 200 mg tablet sustained-release 12 hr 200 mg PO BID 90 Days Qty: 180 3RF lorazepam 1 mg tablet 1 mg PO ONCE 1 Days Qty: 1 0RF ascorbic acid (vitamin C) [Vitamin C] 500 mg Tablet 500 mg PO DAILY cholecalciferol (vitamin D3) [Vitamin D3] 25 mcg (1,000 unit) Capsule 25 mcg PO DAILY calcium carbonate-vitamin D3 600 mg calcium- 200 unit Tablet,Chewable 1 tab PO DAILY estradiol 1 mg tablet 1 mg PO DAILY progesterone micronized 200 mg capsule 200 mg PO BEDTIME <TETE Gregory - Last Filed: 10/12/22 11:32> Referrals: [facility] [Provider Group] - 1 week <TETE Gregory - Last Filed: 10/12/22 11:32> Interventions: ED Discharge Assessment Last Done: 10/12/22 14:13 <TETE Gregory - Last Filed: 10/12/22 11:32> Discharge Date/Time: 10/12/22 14:14 <TETE Gregory - Last Filed: 10/12/22 11:32>
[2022-10-12 12:06] VITALS: BP 107/69; PULSE 82; RESP 18; O2SAT 99
--- NOTE | 2022-10-12 14:03 | PC.NURSE ---
posterior short leg splint applied to left leg per order, pt tolerated procedure well
== END 2022-10-12 14:14 | disposition home or self-care (01) ==
PROVIDERS: Emergency Provider Emergency Medicine; PCP Physician Assistant
DX: S82.892A Other fracture of left lower leg, initial encounter for closed fracture (principal); W10.9XXA Fall (on) (from) unspecified stairs and steps, initial encounter; Y93.9 Activity, unspecified; Y92.9 Unspecified place or not applicable; Y99.9 Unspecified external cause status; Z79.899 Other long term (current) drug therapy
CPT/HCPCS: 29515; 73610; 99284

== ENCOUNTER 2022-10-18 09:29 | Outpatient (REF) | payer OTHER, SELFPAY ==
--- NOTE | ~2022-10-18 | XR_ITS ---
EXAMINATION: XR KNEE, LEFT CLINICAL INFORMATION: Pain. COMPARISON: None available. TECHNIQUE: AP and lateral views of the left knee. FINDINGS: Bony alignment and mineralization are normal. The lateral and medial joint space compartments are symmetric and well-maintained. There is mild cortical irregularity of the articular surface of the medial femoral condyle. There is marked narrowing of the patellofemoral compartment. There is tricompartment peripheral osteophyte formation. There is chondrocalcinosis. There is an oval enthesophyte noted at the quadriceps tendon insertion onto the upper pole of the patella, likely chronic. No foreign body is seen. XR/XR knee LT 2V IMPRESSION: 1. There is tricompartment osteoarthritic change of the left knee, most pronounced of the patellofemoral compartment, where it is severe. 2. There is a chronic-appearing fracture seen at an enthesophyte of the upper pole of the patella quadriceps tendon insertion. Recommend clinical correlation. 3. There is chondrocalcinosis, which can be associated with CPPD.
--- NOTE | ~2022-10-18 | XR_ITS ---
EXAMINATION: XR ANKLE, LEFT CLINICAL INFORMATION: Pain. COMPARISON: Radiographs dated 10/12/2022. TECHNIQUE: AP, lateral, and mortise views of the left ankle. FINDINGS: There is normal bony mineralization. There is stable alignment of a nondisplaced oblique fracture of the medial malleolus the ankle mortise is intact. No fracture or dislocation is seen. The mortise remains intact. There is a left ankle joint effusion. There is mild generalized soft tissue swelling. XR/XR ankle LT min 3V IMPRESSION: There is stable alignment of a nondisplaced fracture of the medial malleolus.
== END 2022-10-18 09:30 | disposition home or self-care (01) ==
LOC: HO.HOSX 09:29
PROVIDERS: Visit Provider Physician Assistant
DX: M25.572 Pain in left ankle and joints of left foot (principal); S82.52XA Displaced fracture of medial malleolus of left tibia, initial encounter for closed fracture
CPT/HCPCS: 73560; 73610

== ENCOUNTER 2022-10-21 10:58 | Day surgery (SDC) | payer OTHER, SELFPAY ==
[2022-10-21] VITALS (13 sets, daily range): BP systolic 132–160; BP diastolic 66–84; PULSE 60–85; RESP 16–18; TEMP 36.6–37; O2SAT 98–100; BMI 30.4
--- NOTE | ~2022-10-21 | FL_ITS ---
EXAMINATION: XR FLUOROSCOPY WITH IMAGES CLINICAL INFORMATION: Left ankle ORIF. COMPARISON: Left ankle 10/18/2022 TECHNIQUE: Fluoroscopy Supervised By: Dr. Vargas. Fluoroscopy Time: 0.2 minutes. Cumulative Dose: 0.503 mGy. DAP: 0.13979 Gycm2. Images: 2. FINDINGS: There are 2 screws stabilizing medial malleolar fracture and satisfactory alignment. No other fractures are visualized. The ankle mortise and subtalar joints are normal. FL/FL guidance in OR IMPRESSION: 2 screws stabilizing medial malleolar fracture with satisfactory alignment. No other fractures seen. No change in the alignment from 10/18/2022 exam.
--- NOTE | 2022-10-21 11:45 | HO.ANESPROP2 ---
HPI - Anesthesia Eval Consult details Narrative: for ankle ORIF PMFSH Active Problems Active Problems: All Active Problems (Updated 10/21/22 @ 11:18 by Emanuel Saldana RN) MDD (major depressive disorder) (Acute) Perimenopausal vasomotor symptoms (Acute) Screening for diabetes mellitus (DM) (Acute) Screening for hypothyroidism (Acute) Screening for hypercholesterolemia (Acute) Annual physical exam (Acute) Colon cancer screening (Acute) Arm paresthesia, left (Acute) Neck pain (Acute) Allergic rhinitis (Acute) Dysuria (Acute) Exposure to influenza (Acute) Obese (Acute) Bronchitis (Acute) Contact dermatitis (Acute) Sphincter of Oddi dysfunction (Acute) Anxiety (Acute) Fracture of medial malleolus of left tibia (Acute) Anxiety and depression (Acute) Scar tissue (Acute) Post-COVID syndrome (Acute) Past Medical History Medical History (Updated 10/21/22 @ 11:18 by Emanuel Saldana RN) Anxiety and depression Normal colonoscopy PONV (postoperative nausea and vomiting) Post-COVID syndrome Scar tissue Family History Family History Father Non-Hodgkin lymphoma Mother No problems noted. Brother Heart problem Other Mental health disorder Family history of problems with anesthesia: No Surgical History Surgical History History of section History of reduction mammoplasty Hx of cholecystectomy History of Problems with Anesthesia: No Social History Social History Housing: House Are you a primary student career development specialist to a significant other at home: No Do you presently have visiting nurse or other home services: No Alcohol intake: current Alcohol intake frequency: holidays/special occasions only Alcohol type: wine Patient Tobacco Use Status: Never used Tobacco Use of substances other than those prescribed or required for medical reasons: No Have you been hit, kicked, punched, or otherwise hurt by someone within the past year? If so, by whom?: No Are you DNR?: No Advance Directives: No Advance Directives Information Provided: Yes Recently lost weight without trying: No Eating poorly because of decreased appetite: No Nutrition Risks: No Nutritional Risk Patient : No service: No Current occupational status: retired Cognitive needs: No Hearing needs: No Vision needs: No Meds Allergies Allergy/AdvReac Type Severity Reaction Status Date / Time metoclopramide [Reglan] Allergy Unknown disorientated, Verified 10/18/22 12:49 Tachycardia, anxious Seasonal Allergies Allergy Sneezing, Verified 10/18/22 12:49 Cough, Allergic Cold Home Medications Medication Instructions Recorded Confirmed Last Taken Type estradiol 1 mg tablet 1 mg PO DAILY 07/01/20 10/21/22 Unknown History progesterone micronized 200 mg 200 mg PO BEDTIME 07/01/20 03/25/22 Unknown History capsule ascorbic acid (vitamin C) 500 mg 500 mg PO DAILY 05/28/21 03/25/22 Unknown History tablet (Vitamin C) calcium carbonate-vitamin D3 600 1 tab PO DAILY 05/28/21 10/21/22 Unknown History mg calcium-200 unit chewable tablet cholecalciferol (vitamin D3) 25 25 mcg PO DAILY 05/28/21 10/21/22 Unknown History mcg (1,000 unit) capsule (Vitamin D3) Exam Exam Date and Time: October 21, 2022 1145 Height,Weight and Vital Signs: Height 5 ft 4 in Weight 80.286 kg Last Vital Signs Temp 98.6 F 10/21/22 11:26 Pulse 83 10/21/22 11:26 Resp 18 10/21/22 11:26 BP 132/73 10/21/22 11:26 Pulse Ox 98 10/21/22 11:26 O2 Del Method Room Air 10/21/22 11:26 Airway Mallampati Class: II TM Dist: >3cm Neck ROM: Full Heart: rrr Lungs: cta Assessment and Plan Assessment Anesthesia Assessment: Anesthesia Plan Discussed and Chart Reviewed Final Anesthetic Review Family History of Problems with Anesthesia: No History of Problems with Anesthesia: No NPO: Yes ASA Class: II Final Preanesthetic Review: No Changes in Pt Med Stat, Meds/Allgs Chart Reviewed, Consent Obtained/Reviewed and Anes Risks/Benef Reviewed Patient Risk: Intermediate Procedure Risk: Low Anesthetic Plan Anesthetic Plan: GA and Regional Block Disposition: Standard PACU
--- NOTE | 2022-10-21 12:56 | MHC.SHP ---
Pre-Procedural Eval Section A Date of Service: 10/21/22 The patient is an INPATIENT: No Changes since office visit: No Cold of Flu in the past 2 weeks, No New Medical Problems, No Changes in Medication and No Patient answered all questions The History & Physical has been completed within 30 days and I have reviewed it.: Yes Section B Chief Complaint: Displaced fracture of medial malleolus of left tib Allergies: Allergies Allergy/AdvReac Type Severity Reaction Status Date / Time metoclopramide [Reglan] Allergy Unknown disorientated, Verified 10/18/22 12:49 Tachycardia, anxious Seasonal Allergies Allergy Sneezing, Verified 10/18/22 12:49 Cough, Allergic Cold Plan I have reviewed the history and physical and performed a pertinent physical examination on my patient. No changes have occurred unless specified. Time Spent With Patient Time: Total time managing care of this patient today ____ minutes.
--- NOTE | 2022-10-21 13:51 | P.BOP_ITS ---
Brief Operative Note Date of Service: 10/21/22 Pre-op diagnosis: Right ankle medial malleolar fracture Post-op diagnosis: same Procedure: ORIF Right medial mal Implants: 36 mm 4.0 partially threaded cannulated screws, Shahid Surgeon: Sam Guajardo MD Anesthesia: GLMA and regional Was an Mercury Cracking Tester used for this Procedure?: No Estimated blood loss (mL): 0 Tourniquet time (min): 25 IV fluids (mL): 600 Pathology: none sent Condition: stable Disposition: PACU
[2022-10-21] MEDS: oxyCODONE HCl Immed Release 5 MG TABLET PO (14:10)
[2022-10-21] MEDS: fentaNYL citrate/PF 100 MCG/2 ML VIAL 25 MCG IVPUSH ×4 (14:13→14:28)
[2022-10-21] MEDS: ondansetron HCL 4 MG/2 ML VIAL IVPUSH (15:01)
--- NOTE | 2022-10-21 15:33 | W.PM.OPN ---
Operative Note Operative Note Date of Service: 10/21/22 Narrative: Date of Service: 10/21/22 Pre-op diagnosis: Right ankle medial malleolar fracture Post-op diagnosis: same Procedure: ORIF Right medial mal Implants: 36 mm 4.0 partially threaded cannulated screws, Shahid Surgeon: Sam Guajardo MD Anesthesia: GLMA and regional Was an Motor Coach Operator used for this Procedure?: No Estimated blood loss (mL): 0 Tourniquet time (min): 25 IV fluids (mL): 600 Pathology: none sent Condition: stable Disposition: PACU Procedure in detail: Patient was brought to the operating room and placed supine on the operative table. All bony prominences were well padded and a time-out was called to identify proper site proper procedure proper surgeon. IV antibiotics per weight were administered. I began by exsanguinating limb is slightly tourniquet to 300 mm Hg. I then made a standard posterolateral incision over the medial malleolus. There was minimal displacement of the fracture and this was confirmed with biplanar fluoroscopy. 2 threaded K-wires were then placed from distal to proximal and perpendicular to the fracture. Biplanar fluoroscopy was used to confirm positioning and then they were overdrilled and 2 36 mm 4.0 partially-threaded cannulated cancellous screws were placed across the fracture. I was satisfied with the position and the fracture reduction based on biplanar fluoroscopy. This syndesmosis was tested using external rotation test and was found to be stable. Therefore all instrumentation was removed and copious irrigation was performed. Absorbable suture and franko were used for closure and the patient was placed into sterile dressings and a well-padded posterior splint. Tourniquet was let down and the patient was extubated brought to recovery room in stable condition there were no known complications.
== END 2022-10-21 16:34 | disposition home or self-care (01) ==
PROVIDERS: PCP Physician Assistant; Visit Provider Orthopaedic Surgery
PROC: (CPT 27766; principal; 2022-10-21 12:30)
DX: S82.52XA Displaced fracture of medial malleolus of left tibia, initial encounter for closed fracture (principal); X50.1XXA Overexertion from prolonged static or awkward postures, initial encounter; Y93.01 Activity, walking, marching and hiking; Y92.89 Other specified places as the place of occurrence of the external cause; Y99.8 Other external cause status; J30.2 Other seasonal allergic rhinitis; F41.8 Other specified anxiety disorders; U09.9 Post COVID-19 condition, unspecified; Z79.51 Long term (current) use of inhaled steroids; Z79.899 Other long term (current) drug therapy; Z88.8 Allergy status to other drugs, medicaments and biological substances
CPT/HCPCS: 27766; C1713; J0690; J1100; J2370; J2405; J2795; J3010

== ENCOUNTER 2022-10-23 07:10 | Emergency (ER) | payer OTHER, SELFPAY ==
[2022-10-23 07:20] VITALS: BP 135/91; PULSE 88; RESP 18; TEMP 36.9; O2SAT 99; BMI 30.4
--- NOTE | 2022-10-23 08:17 | ED_ITS ---
HPI - Extremity Problem General Chief complaint: Extremity Problem Stated complaint: Needs L ankle splint fixed Time Seen by Provider: 10/23/22 08:03 Source: patient and family (daughter) Mode of arrival: ambulatory Limitations: no limitations History of Present Illness HPI Narrative: 61-year-old female status post ORIF of the right medial malleolus had posterior splint placed postoperatively came in today feeling uncomfortable splint is too tight and painful, Dr. Guajardo sent her to the ER to change the splint. Related Data Home Medications Medication Instructions Recorded Confirmed estradiol 1 mg tablet 1 mg PO DAILY 07/01/20 10/21/22 progesterone micronized 200 mg 200 mg PO BEDTIME 07/01/20 10/21/22 capsule ascorbic acid (vitamin C) 500 mg 500 mg PO DAILY 05/28/21 10/21/22 tablet (Vitamin C) calcium carbonate-vitamin D3 600 1 tab PO DAILY 05/28/21 10/21/22 mg calcium-200 unit chewable tablet cholecalciferol (vitamin D3) 25 25 mcg PO DAILY 05/28/21 10/21/22 mcg (1,000 unit) capsule (Vitamin D3) Previous Rx's Medication Instructions Recorded fluticasone propionate 50 2 spray intranasal DAILY 1 month 07/07/21 mcg/actuation nasal #16 grams spray,suspension (Allergy Relief (fluticasone)) bupropion HCl 200 mg tablet,12 hr 200 mg PO BID 90 days #180 tabs 01/31/22 sustained-release lorazepam 1 mg tablet 1 mg PO ONCE anxiety 1 day #1 tab 10/17/22 oxycodone 5 mg tablet 5 mg PO Q4H PRN pain (scale score 10/21/22 4-6) 7 days #42 tabs Allergies Allergy/AdvReac Type Severity Reaction Status Date / Time metoclopramide [Reglan] Allergy Unknown disorientated, Verified 10/18/22 12:49 Tachycardia, anxious Seasonal Allergies Allergy Sneezing, Verified 10/18/22 12:49 Cough, Allergic Cold Review of Systems Review of Systems: All other systems are reviewed and are negative Constitutional: Reports as per HPI and Reports no additional constitutional complaints Eyes: Reports as per HPI and Reports no additional eye complaints Reports system reviewed and no additional complaints, except as documented Cardiovascular: Reports as per HPI and Reports no additional cardiovascular complaints Respiratory: Reports as per HPI and Reports no additional respiratory complaints Gastrointestinal: Reports as per HPI and Reports no additional gastrointestinal complaints Genitourinary: Reports no additional female genitourinary complaints Musculoskeletal: Reports no additional musculoskeletal complaints Skin/Breast: Reports system reviewed and no additional complaints, except as docu Psychiatric: Reports no additional psychiatric complaints Endocrine: Reports no additional endocrine complaints Hematologic/Lymphatic: Reports no additional hematologic/lymphatic complaints Allergic/Immunologic: Reports no additional allergic/immunologic complaints Reports system reviewed and no additional complaints, except as documented and Reports Abnormal speech present [facility] Past Medical History Medical History Anxiety and depression Normal colonoscopy PONV (postoperative nausea and vomiting) Post-COVID syndrome Scar tissue Surgical History History of section History of reduction mammoplasty Hx of cholecystectomy Family History Family History Father Non-Hodgkin lymphoma Mother No problems noted. Brother Heart problem Other Mental health disorder Social History Social History Housing: House Are you a primary caregiver services home to a significant other at home: No Do you presently have visiting nurse or other home services: No Alcohol intake: current Alcohol intake frequency: holidays/special occasions only Alcohol type: wine Patient Tobacco Use Status: Never used Tobacco Advance Directives: No Advance Directives Information Provided: No service: No Current occupational status: retired Cognitive needs: No Hearing needs: No Vision needs: No Physical Exam Vital Signs: Vital Signs: Last Vital Signs Temp 98.4 F 10/23/22 07:20 Pulse 88 10/23/22 07:20 Resp 18 10/23/22 07:20 BP 135/91 H 10/23/22 07:20 Pulse Ox 99 10/23/22 07:20 O2 Del Method Room Air 10/23/22 07:20 BMI result Body Mass Index 30.4 Vital signs have been reviewed as appeared to be correct. Blood pressure normal. Heart rate normal. Respiration rate normal. Temperature normal. Oxygen saturation normal. Appearance: Alert. Oriented X3. No acute distress. Head: Normal external exam. Normocephalic. Atraumatic. No Macdonald signs noted. No raccoon eyes noted Eyes: PERRLA. EOMI. Conjunctiva and sclera normal. Eyelids normal. ENT: TM's Normal. Pharynx normal. Uvula midline. Moist mucous membranes. No trismus noted. No drooling noted. No muffled voice noted. Neck: Normal inspection. Neck supple. FROM. No adenopathy. Thyroid Normal. No meningeal signs. No neck mass noted. CVS: Normal heart rate and rhythm. Heart sound normal. No murmurs noted. Pulses normal throughout. Respiratory: No respiratory distress. Painless inspiration. Breath sounds normal. No wheezes/rales/rhonchi noted. Chest nontender. No accessory muscle usage noted or decreased air movement noted. Abdomen: Soft and nontender. Bowel sounds normal in all 4 quadrants. No distention noted. No organomegaly noted. No visible injury noted. Back: No CVA tenderness. Full range of motion noted. Skin: Skin warm and dry. Normal skin color. Normal skin turgor. No rashes/lesions/lacerations noted. Extremities: Left lower extremity: Neurovascularly intact patent PT/DP, sensation to light touch is intact in the left foot, incision is dry, clean, and intact. Neuro: Oriented X 3. Cranial nerve exam: II-XII are grossly intact. No motor deficit. No sensory deficit. Reflexes normal. Course Course Course Narrative: 61-year-old female status post ORIF for the left ankle here for changing splint. Reevaluation(s) Reevaluation #1: Old posterior splint was replaced with another posterior splint patient was instructed to follow up with Dr. Guajardo for recheck. Time: 08:25 Medical Decision Making Differential Diagnosis Differential Diagnoses: The differential diagnosis associated with the presentation includes (Compartment syndrome, uncomfortable splint, infected wound.) Discharge Plan Discharge Clinical Impression: Problem with immobilizing cast Patient Disposition: Home, Self-Care Additional Instructions: Call Dr. Guajardo and follow-up with him to recheck on the splint and after surgery. Seek immediate medical attention if you start see change of color or severe pain in a left ankle/foot. Call Dr. Guajardo if you develop any fever or chills. Otherwise follow-up with Dr. Guajardo instruction. Prescriptions: No Action fluticasone propionate [Allergy Relief (fluticasone)] 50 mcg/actuation spray,suspension 2 spray intranasal DAILY 30 Days Qty: 16 3RF Rx Instructions: administer into each nostril bupropion HCl 200 mg tablet sustained-release 12 hr 200 mg PO BID 90 Days Qty: 180 3RF lorazepam 1 mg tablet 1 mg PO ONCE 1 Days Qty: 1 0RF ascorbic acid (vitamin C) [Vitamin C] 500 mg Tablet 500 mg PO DAILY cholecalciferol (vitamin D3) [Vitamin D3] 25 mcg (1,000 unit) Capsule 25 mcg PO DAILY calcium carbonate-vitamin D3 600 mg calcium- 200 unit Tablet,Chewable 1 tab PO DAILY oxycodone 5 mg tablet 5 mg PO Q4H PRN (Reason: pain (scale score 4-6)) 7 Days Qty: 42 0RF Rx Instructions: Partial Fill upon patient request. estradiol 1 mg tablet 1 mg PO DAILY progesterone micronized 200 mg capsule 200 mg PO BEDTIME Referrals: Sam Guajardo MD [Physician] -
--- NOTE | 2022-10-23 08:59 | PC.NURSE ---
Splint being applied to left lower extremity at this time. +CMS
== END 2022-10-23 09:25 | disposition home or self-care (01) ==
PROVIDERS: Emergency Provider Emergency Medicine; PCP Physician Assistant
DX: S93.401A Sprain of unspecified ligament of right ankle, initial encounter (principal); X58.XXXA Exposure to other specified factors, initial encounter; Y93.9 Activity, unspecified; Y92.9 Unspecified place or not applicable; Y99.9 Unspecified external cause status
CPT/HCPCS: 29515; 99282; 99283

== ENCOUNTER → 2022-10-24 13:39 | Outpatient (BNVA) | payer OTHER, SELFPAY | PROVIDERS: PCP Physician Assistant; Visit Provider Physician Assistant | DX: Z13.89 Encounter for screening for other disorder (principal) ==

== ENCOUNTER 2022-10-27 07:13 | Outpatient (REF) | payer OTHER, SELFPAY ==
--- NOTE | ~2022-10-27 | XR_ITS ---
EXAMINATION: XR ANKLE, LEFT CLINICAL INFORMATION: Left ankle pain. Fracture COMPARISON: 10/18/2022 TECHNIQUE: AP, lateral, and mortise views of the left ankle. FINDINGS: 2 cannulated screws traverse the fracture of the medial malleolus with stable alignment. A fracture line is less apparent compatible with some interval healing. There is lateral soft tissue swelling with a faint linear calcification at the tip of the lateral malleolus likely representing a small avulsion, also demonstrated previously. Slight widening of the lateral joint space. XR/XR ankle LT min 3V IMPRESSION: Healing medial malleolus fracture with stable alignment. Probable small avulsion fracture at the tip of the lateral malleolus, also demonstrated previously, with slight widening of the lateral joint space.
== END 2022-10-27 07:14 | disposition home or self-care (01) ==
LOC: HO.HOSX 07:13
PROVIDERS: Visit Provider Physician Assistant
DX: S82.52XD Displaced fracture of medial malleolus of left tibia, subsequent encounter for closed fracture with routine healing (principal)
CPT/HCPCS: 29405; 73610

== ENCOUNTER → 2022-10-28 08:41 | Outpatient (BNVA) | payer OTHER, SELFPAY | PROVIDERS: PCP Physician Assistant; Visit Provider Physician Assistant | DX: Z13.89 Encounter for screening for other disorder (principal) | CPT/HCPCS: 29405 ==

== ENCOUNTER 2022-11-04 08:45 | Outpatient (REF) | payer OTHER, SELFPAY ==
--- NOTE | ~2022-11-04 | XR_ITS ---
EXAMINATION: XR ANKLE, LEFT CLINICAL INFORMATION: Pain. Fracture. COMPARISON: Previous x-ray most recent 10/27/2022 TECHNIQUE: of the left ankle. FINDINGS: 2 screws transfixing the medial malleolar fracture. Hardware appears unchanged. Fracture line still seen and unchanged. Alignment unchanged. Probable small avulsion fracture arising from the inferior lateral malleolus. Question mild lateral ankle mortise widening. Ankle joint effusion. Medial and lateral soft tissue swelling. Recent appearing oblique fracture of the fifth metatarsal shaft. XR/XR ankle LT min 3V IMPRESSION: Stable appearance of ankle fractures. There is also an oblique fracture of the shaft of the fifth metatarsal bone.
== END 2022-11-04 08:46 | disposition home or self-care (01) ==
LOC: HO.HOSX 08:45
PROVIDERS: Visit Provider Physician Assistant
DX: S82.52XD Displaced fracture of medial malleolus of left tibia, subsequent encounter for closed fracture with routine healing (principal)
CPT/HCPCS: 73610

== ENCOUNTER → 2022-11-11 10:51 | Outpatient (BNVA) | payer OTHER, SELFPAY | PROVIDERS: PCP Physician Assistant; Visit Provider Physician Assistant | DX: Z13.89 Encounter for screening for other disorder (principal) ==

== ENCOUNTER 2022-11-15 08:25 | Outpatient (REF) | payer OTHER, SELFPAY ==
--- NOTE | ~2022-11-15 | XR_ITS ---
EXAMINATION: XR ANKLE, LEFT CLINICAL INFORMATION: Fracture COMPARISON: Previous x-ray most recent 11/04/2022 TECHNIQUE: AP, lateral, and mortise views of the left ankle. FINDINGS: 2 screws transfixing the medial malleolar fracture. This appears unchanged. The avulsion fracture of the inferior lateral malleolus. This appears unchanged. Lateral ankle mortise widening. Medial and lateral soft tissue swelling. Ankle joint effusion. Recent appearing oblique fracture of the fifth metatarsal shaft. Small calcaneal spurs. XR/XR ankle LT min 3V IMPRESSION: Stable appearance of the medial and lateral malleolar fractures. Lateral ankle mortise widening. Recent appearing oblique fracture of the fifth metatarsal shaft.
== END 2022-11-15 08:26 | disposition home or self-care (01) ==
LOC: HO.HOSX 08:25
PROVIDERS: Visit Provider Physician Assistant
DX: S82.52XD Displaced fracture of medial malleolus of left tibia, subsequent encounter for closed fracture with routine healing (principal)
CPT/HCPCS: 29515; 73610

== ENCOUNTER 2022-11-28 12:48 | Outpatient (REF) | payer OTHER, SELFPAY ==
--- NOTE | ~2022-11-28 | XR_ITS ---
EXAMINATION: XR ANKLE, LEFT CLINICAL INFORMATION: Pain. COMPARISON: None available. TECHNIQUE: AP, lateral, and mortise views of the left ankle. FINDINGS: There are 2 screws stabilizing medial malleolar healed fracture. There is a small bony fragments seen along the tip of calcaneus with improved soft tissue swelling likely old fracture. There is increased distance between the lateral talar dome and the lateral distal tibia likely from ligamentous injury.. XR/XR ankle LT min 3V IMPRESSION: No change in the widening of the lateral mortise. 2 malleolar screws stabilizing medial matter fractures in alignment are unchanged. Small bone fragment inferior to the fibula are stable as well.
== END 2022-11-28 12:49 | disposition home or self-care (01) ==
LOC: HO.HOSX 12:48
PROVIDERS: Visit Provider Physician Assistant
DX: S82.52XD Displaced fracture of medial malleolus of left tibia, subsequent encounter for closed fracture with routine healing (principal); X58.XXXD Exposure to other specified factors, subsequent encounter
CPT/HCPCS: 73610

== ENCOUNTER 2023-01-09 07:25 | Outpatient (REF) | payer OTHER, SELFPAY ==
--- NOTE | ~2023-01-09 | XR_ITS ---
EXAMINATION: XR ANKLE, LEFT CLINICAL INFORMATION: Pain, prior fracture. COMPARISON: Previous x-ray most recent 11/04/2022. TECHNIQUE: AP, lateral, and mortise views of the left ankle. FINDINGS: Redemonstration of 2 screws transfixing the medial malleolar fracture, similar in appearance. Redemonstration of tiny avulsion fracture arising from the inferior lateral malleolus. Mild widening of the lateral aspect of the mortise again seen. Ankle joint effusion with lateral soft tissue swelling. Previously identified fracture of the 5th metatarsal shaft incompletely imaged and cannot be adequately evaluated. XR/XR ankle LT min 3V IMPRESSION: Stable appearance of the medial and lateral malleolar fractures. Redemonstration of mild lateral ankle mortise widening. Previously identified fracture of the 5th metatarsal shaft incompletely imaged and cannot be adequately evaluated. Dedicated views of the foot recommended if not already obtained.
== END 2023-01-09 07:26 | disposition home or self-care (01) ==
LOC: HO.HOSX 07:25
PROVIDERS: Visit Provider Physician Assistant
DX: S82.52XD Displaced fracture of medial malleolus of left tibia, subsequent encounter for closed fracture with routine healing (principal)
CPT/HCPCS: 73610

== ENCOUNTER 2023-01-12 10:00 | Outpatient (RCR) | payer OTHER, SELFPAY ==
--- NOTE | 2022-12-30 15:06 | MHC.PT.EP ---
[facility] [place] Office [place] Office [place] Office [address] Sukhdeep Vasques [address] [phone] F: [phone] F: [phone] F: [phone] F: [phone] Physical Therapy Plan of Care Date of Evaluation: Date of Surgery: 10/21/22 Diagnosis: Fracture of medial malleolus of LEFT tibia, S/P LEFT ankle medial malleolus ORIF; 10/21/2022 Assessment: Patient is a pleasant 62 y.o. female who is referred to PT by Keely Gutierrez PA-C, with Dx of Fracture of medial malleolus of LEFT tibia, S/P LEFT ankle medial malleolus ORIF; 10/21/2022. Patient impairments include pain, swelling, limited ROM, weakness, antalgic gait. Patient current functional limitations are prolonged walking, hiking, squat, descending stairs, prolonged standing food prep, ladder use, use step stools, driving manual transmission. Patient will benefit from skilled PT to address aforementioned impairments and functional limitations to meet established goals. Frequency and Duration: The patient will be seen 1x/week for 4 weeks Short Term Goals: 2 weeks Patient demonstrates consistency and independence with HEP to self manage symptoms. Patient presents with with L ankle DF 0 degrees to normalize heel to toe rocker gait pattern. Mcfp Goals: 4 weeks Patient presents with increased L ankle inverion and eversion 4+/5 to be able to resume hiking with UE support. Patient presents with increased L ankle DF 5 degrees to be able to descend reciprocal stairs with railings. Treatment Plan: Modalities to reduce pain, spasms and effusion. Manual therapy to restore motion and function. Therapeutic exercise to improve strength and flexibility. Neuromuscular re-education for posture and balance. Therapeutic activities to return to functional activities of daily living. Electronically signed by: Beka Shukla, PT, DPT Please sign and return to therapist. Thank you for your referral.
--- NOTE | 2023-03-09 13:31 | MHC.PT.DC ---
[facility] [place] [facility] [place] [facility] [place] [facility] [address] Sukhdeep Vasques [address] [phone] F: [phone] F: [phone] F: [phone] F: [phone] Physical Therapy Discharge Report Diagnosis: Fracture of medial malleolus of LEFT tibia, S/P LEFT ankle medial malleolus ORIF; 10/21/2022 Date of Surgery: 10/21/22 Date of Evaluation: 12/30/22 Date of Discharge: 03/09/23 Treatments to Date: 2 Cancellations to Date: 1 No Shows to Date: 1 Discharge Status: Visit Non-compliance Discharge Summary: Patient is discharged from PT for non-compliance with attendance. Pt was only seen for 2 visits, difficulty determining effectiveness of PT on patient condition due to limited sessions. Electronically signed by: Beka Shukla, PT, DPT Please sign and return to therapist. Thank you for your referral.
== END 2023-03-09 13:31 | disposition home or self-care (01) ==
LOC: HO.PT 10:00
PROVIDERS: PCP Physician Assistant; Visit Provider Physician Assistant
DX: S82.52XD Displaced fracture of medial malleolus of left tibia, subsequent encounter for closed fracture with routine healing (principal)
CPT/HCPCS: 97110; 97140; 97161; 97530

== ENCOUNTER 2023-01-12 10:59 | Outpatient (REF) | payer OTHER, SELFPAY ==
[2023-01-12 11:41] LABS: Hematocrit 41.2 % (37.0-47.0); Hemoglobin 13.5 g/dl (12.0-16.0); Mean Corpuscular HGB Conc 32.8 g/dl (31.0-35.0); Mean Corpuscular Hemoglobin 31.5 pg (27.0-33.0); Mean Platelet Volume 8.9 fL (9.4-12.3); Platelet Count 332 X10*3/uL (160-400); Red Blood Count 4.29 X10*6/uL (4.20-5.50); Red Cell Distribution Width 13.2 % (11.0-16.0); White Blood Count 5.2 X10*3/uL (4.8-10.8)
[2023-01-12 12:06] LABS: Alanine Aminotransferase 12 U/L (0-31); Alkaline Phosphatase 126 U/L (39-117); Anion Gap 12 (12-20); Aspartate Amino Transferase 16 U/L (5-31); Bilirubin Total 0.7 mg/dL (0.0-1.0); Blood Urea Nitrogen 15 mg/dL (9-16); Calcium 9.7 mg/dL (8.4-10.2); Carbon Dioxide 26 mmol/L (22-29); Chloride 104 mmol/L (96-108); Estimated Glomerular Filt Rate > 60; Glucose Fasting 86 mg/dL (60-99); Sodium 138 mmol/L (135-145); Total Protein 7.7 g/dL (6.5-8.0)
== END 2023-01-12 11:00 | disposition home or self-care (01) ==
LOC: HO.LAB 10:59
PROVIDERS: PCP Physician Assistant; Visit Provider Physician Assistant
DX: Z13.1 Encounter for screening for diabetes mellitus (principal); Z20.2 Contact with and (suspected) exposure to infections with a predominantly sexual mode of transmission
CPT/HCPCS: 36415; 80053; 85027

== ENCOUNTER 2023-03-22 11:44 | Outpatient (AMB) | payer OTHER, SELFPAY ==
[2023-03-22 11:46] VITALS: BP 142/82; PULSE 96; O2SAT 97; BMI 30.2
--- NOTE | 2023-03-22 11:46 | A.OFFPC_ITS ---
Vital Signs 03/22/23 11:46 Height 5 ft 4 in Weight 176 lb BMI 30.2 BP 142/82 H Blood Pressure Location Lt brachial Position Sitting Pulse 96 Pulse Source Pulse Oximeter Pulse Oximetry (%) 97 Oxygen Delivery Method Room Air Intake Visit Reasons: BP check Intake Note: Pt is here for BP check. Strategic Partner Development Manager Required: No Accompanied by: Self / Same As Patient Allergies metoclopramide [Reglan] Allergy (Unknown, Verified 03/22/23 12:06) disorientated, Tachycardia, anxious Seasonal Allergies Allergy (Verified 03/22/23 12:06) Sneezing, Cough, Allergic Cold Medication List - Last Reconciled 03/22/23 by Tello Tapia PA-C ascorbic acid (vitamin C) (Vitamin C) 500 mg PO DAILY bupropion HCl 200 mg PO BID 90 days calcium carbonate-vitamin D3 600 mg calcium- 200 unit 1 tab PO DAILY cholecalciferol (vitamin D3) (Vitamin D3) 25 mcg PO DAILY estradiol 1 mg PO DAILY fluticasone propionate 50 mcg/actuation (Allergy Relief (fluticasone)) 2 sprays intranasal DAILY 1 month progesterone micronized 200 mg PO BEDTIME Tobacco use date assessed: 01/04/23 Dental Screening Dental Screen Date: 03/22/23 Did you have a dental visit in the last 12 months?: Yes Did you have a dental problem in the last 6 months where you did not have access to dental care?: No Was dental information given to patient?: Patient has dentist HPI BP check HPI Details Patient is 62-year-old female here today for follow-up on her blood pressure. She has noted some higher blood pressure readings at home 135-145 systolic. She denies any chest pain, headaches, vision issues. She reports she has been under some some stress due to personal issues at home. She does admit to drinking caffeinated beverage(green tea) in the mornings. Also reports she has developed a rash over her right flank that has been itchy and has been using hydrocortisone cream on it with good relief. [facility] Medical History Allergic rhinitis Normal colonoscopy Perimenopausal vasomotor symptoms PONV (postoperative nausea and vomiting) Post-COVID syndrome Scar tissue Surgical History History of ankle surgery Hx of cholecystectomy History of reduction mammoplasty History of section Family History Father Non-Hodgkin lymphoma Mother No problems noted. Brother Heart problem Other Mental health disorder Social History Housing: House Are you a primary tire care manager to a significant other at home: No Do you presently have visiting nurse or other home services: No Alcohol intake: current Alcohol intake frequency: holidays/special occasions only Alcohol type: wine Patient Tobacco Use Status: Never used Tobacco e-Cigarette/Vaping Use: Never Used Second Hand Smoke Exposure: No service: No Current occupational status: retired Cognitive needs: No Hearing needs: No Vision needs: Yes (glasses) Questionnaire Thrive Questionnaire Date Thrive assessed: 01/04/23 ROLAND-7 AMB Questionnaire ROLAND-7 Date ROLAND - 7 assessed: 01/04/23 Source: Developed by Drs. Kal Patel, Shelly Mckay, Ian Gao and colleagues, with an educational lynne from [employer]. Review of Systems Const Denies headache(s) Eyes Denies loss of vision ENT Denies vertigo, Denies dizziness, Denies headache(s) and Denies sore throat Card Denies chest pain, Denies leg edema and Denies lightheadedness Resp Denies cough, Denies hemoptysis and Denies wheezing GI Denies abdominal pain, Denies melena, Denies constipation, Denies diarrhea and Denies vomiting Denies urinary frequency, Denies dysuria and Denies urinary urgency Musc Denies arthralgias, Denies joint swelling, Denies numbness and Denies tingling Neuro Denies Abnormal speech present, Denies behavioral changes, Denies vertigo, Denies dizziness, Denies headache(s), Denies loss of vision, Denies memory loss, Denies numbness and Denies tingling Psych Denies anxiety, Denies behavioral changes, Denies depression, Denies memory loss and Denies panic attacks Saji/Lymph Denies easy bleeding and Denies easy bruising Aller/Immun Denies wheezing Physical exam (Primary Care) Vital Signs: Last Vital Signs Pulse 96 03/22/23 11:46 BP 142/82 H 03/22/23 11:46 Pulse Ox 97 03/22/23 11:46 Oxygen Delivery Method Room Air 03/22/23 11:46 BMI result Body Mass Index 30.2 Tobacco/Smoking Status: Tobacco use Status Tobacco use date assessed 01/04/23 03/22/23 11:52 Patient Tobacco Use Status Never used Tobacco 03/22/23 11:52 e-Cigarette/Vaping Use Never Used 03/22/23 11:52 Thrive Assessment: Date of Thrive Assessment Date Thrive assessed 01/04/23 03/22/23 11:52 Const General: healthy appearing, no acute distress, alert and awake Nutritional Appearance: well nourished Orientation/consciousness: oriented to person, oriented to place and oriented to time HENMT Ears: TM's normal bilaterally General nose exam: Normal nasal mucous membranes and turbinates present Eyes Conjunctivae: conjunctivae normal Sclerae: sclerae normal Pupils: Equal, round and reactive pupils present Neck Neck: Yes no lymphadenopathy and Yes no JVD Thyroid: Thyroid normal Carotids: no bruits Resp Effort & Inspection: normal respiratory effort and not tachypneic Auscultation: no crackles, no rales, no rhonchi and no wheezes Cardio Rate: regular rate Rhythm: regular rhythm Heart sounds: no murmurs and normal S1 and S2 GI Palpation (GI): Soft to palpation, nontender, no hepatomegaly and no splenomegaly Auscultation: normal bowel sounds Skin General skin exam: no rashes or lesions noted and dry skin Neuro General: oriented to person, oriented to place and oriented to time Cranial nerves: Yes Equal, round and reactive pupils present Speech: No Abnormal speech present Gait exam (Neuro): Normal gait present Motor exam (neuro): no tremor noted Extrem Right upper extremity: full ROM Left upper extremity: full ROM Right lower extremity: full ROM; no edema Left lower extremity: full ROM; no edema Psych Mental Status: mental status grossly normal Speech and movement: Normal speech and movement present Affect: normal affect Attitude: cooperative Thought process: Normal thought process present Assessment and Plan Assessment & Plan (1) Elevated blood pressure reading in office without diagnosis of hypertension: Code(s): R03.0 - Elevated blood-pressure reading, without diagnosis of hypertension Plan: Some intermittent elevated blood pressure readings. Does not have a diagnosis of high blood pressure at this time. She has been under some stress as of late which could be contributing to her elevated blood pressure readings. Will continue to monitor over the next few weeks and if consistently above 140/90 will consider starting low-dose blood pressure medication. (2) Rash: Code(s): R21 - Rash and other nonspecific skin eruption Plan: Seems to have developed a right flank rash that has been itchy. She has been using hydrocortisone with some relief of her itch in redness of the skin. The rash seems to be herpes zoster like. Will consider antiviral fraction worsens in the next 48 hours. Coding Level of Care Code Est Pt Level 3 (11088) Diagnoses Elevated blood pressure reading in office without diagnosis of hypertension R03.0 Rash R21
== END 2023-03-22 12:20 | disposition home or self-care (01) ==
PROVIDERS: PCP Physician Assistant; Visit Provider Physician Assistant
DX: R03.0 Elevated blood-pressure reading, without diagnosis of hypertension (principal); R21 Rash and other nonspecific skin eruption
CPT/HCPCS: 99213

== ENCOUNTER 2023-04-18 10:45 | Outpatient (REF) | payer OTHER, SELFPAY ==
--- NOTE | ~2023-04-18 | MM_ITS ---
EXAMINATION: MM SCREENING DIGITAL BREAST TOMOSYNTHESIS, BILATERAL CLINICAL INFORMATION: Screening. Asymptomatic. The patient is status post bilateral breast reduction. COMPARISON: Mammography: This study is compared with prior exams dating back to 2018. TECHNIQUE: Digital breast tomosynthesis is performed in both the craniocaudal and mediolateral oblique views along with computer-aided detection (CAD). Synthesized 2D images are generated from the tomosynthesis. FINDINGS: The breasts are almost entirely fatty (ACR BI-RADS breast composition Category a). There are no significant masses, abnormal calcifications, or other abnormalities. Post reduction changes are present. MM/MM tomosynthesis screening BI IMPRESSION: No mammographic evidence of malignancy. ASSESSMENT: BI-RADS BI-RADS 2 - Benign Findings RECOMMENDATION: Routine annual mammography screening. 1 year F/U This examination should not preclude the clinical evaluation of a suspicious palpable abnormality. This patient's information was entered into a reminder system with a target due date for their next mammogram.
== END 2023-04-18 10:46 | disposition home or self-care (01) ==
LOC: HO.MAMMO 10:45
PROVIDERS: PCP Physician Assistant; Referring Provider Obstetrics & Gynecology; Visit Provider Physician Assistant
DX: Z12.31 Encounter for screening mammogram for malignant neoplasm of breast (principal)
CPT/HCPCS: 77063; 77067

== ENCOUNTER → 2023-04-18 11:00 | Outpatient (BNV) | payer OTHER, SELFPAY | PROVIDERS: PCP Physician Assistant; Referring Provider Obstetrics & Gynecology; Visit Provider Radiology Diagnostic Radiology | DX: Z12.31 Encounter for screening mammogram for malignant neoplasm of breast (principal) | CPT/HCPCS: 77063; 77067 ==

== ENCOUNTER 2023-06-27 15:13 | Outpatient (REF) | payer OTHER, SELFPAY ==
--- NOTE | ~2023-06-27 | XR_ITS ---
EXAMINATION: XR KNEE, LEFT CLINICAL INFORMATION: Pain in left knee COMPARISON: X-ray the left knee October 2022 TECHNIQUE: 3 views of each knee including AP tunnel and lateral view. Patella view not obtained. FINDINGS: Patellofemoral compartment- Suspect prominent joint space narrowing although evaluation is limited without patella view. Marginal osteophytes noted. No change compared to prior. There are marginal osteophytes with subchondral cystic change involving the medial compartment indicative of mild arthrosis. Marginal osteophytes without joint space narrowing lateral compartment indicative of mild arthrosis. Trace joint effusion. XR/XR knee LT 3V IMPRESSION: Osteoarthritis of the left knee with degenerative changes most prominent in the patellofemoral compartment likely moderate to severe. No change compared with October 2022.
== END 2023-06-27 15:14 | disposition home or self-care (01) ==
LOC: HO.XRAY 15:13
PROVIDERS: PCP Physician Assistant; Visit Provider Physician Assistant
DX: M25.562 Pain in left knee (principal)
CPT/HCPCS: 73562

== ENCOUNTER 2023-08-03 10:27 | Outpatient (REF) | payer OTHER, SELFPAY ==
--- NOTE | ~2023-08-03 | XR_ITS ---
EXAMINATION: XR KNEE AP STANDING CLINICAL INFORMATION: Knee pain COMPARISON: Knee radiographs 06/27/2023 TECHNIQUE: AP bilateral standing view of the knees was obtained. XR/XR knee standing BI FINDINGS/IMPRESSION: * No acute fracture or dislocation appreciated on this limited single view. * Mild to moderate osteoarthritis of the bilateral knees with medial and lateral compartment osteophytes. Question of bulky osteophytes or enthesophytes bilaterally and on the left appears somewhat fragmented unchanged from prior which for which differential considerations could include a bipartite patella, for which patellar views may be useful for further evaluation. * Well-corticated 3 mm osseous fragment in the right tibiofemoral joint space possibly reflecting a loose body. * Soft tissues are unremarkable.
== END 2023-08-03 10:28 | disposition home or self-care (01) ==
LOC: HO.HOSX 10:27
PROVIDERS: Visit Provider Physician Assistant
DX: M17.12 Unilateral primary osteoarthritis, left knee (principal)
CPT/HCPCS: 73565

== ENCOUNTER 2023-08-03 11:27 | Outpatient (AMB) | payer OTHER, SELFPAY ==
--- NOTE | 2023-08-03 11:43 | A.OFFVIS_ITS ---
Intake Vital Signs 08/03/23 11:45 Height 5 ft 4 in Weight 176 lb BMI 30.2 Intake Visit Reasons: New Prob- Left knee pain Intake Note: Porfirio is a 62 year old female who presents today for a evaluation of her left knee pain. Patient reports ongoing intermittent pain since April. States having a knee injury in April that was feeling better when she re-injured her knee in June. She was seen by PCP who referred her to orthopedics and PT however she has not started. States that her pain is more focused on the posterior aspect of the left knee. Her pain is worse with going down stairs. Allergies metoclopramide [Reglan] Allergy (Unknown, Verified 08/03/23 11:45) disorientated, Tachycardia, anxious Seasonal Allergies Allergy (Verified 08/03/23 11:45) Sneezing, Cough, Allergic Cold HPI New Prob- Left knee pain HPI Details 62-year-old female who presents in the [facility] today for an evaluation of left knee pain. The patient reports in in 04/2023 she hyper-extended the left knee due to being in a bad position while on an airplanes. She states it started to get better. Then in 06/2023 she states she was going up the stairs when she twisted the knee. She states she was using crutches to get around due to the pain. She states she was seen by her PCP who referred to physical therapy, but she is unsure since she does not know what is wrong with the knee. The patient reports the pain is on the back side of her knee. [facility] Medical History Allergic rhinitis Normal colonoscopy Perimenopausal vasomotor symptoms PONV (postoperative nausea and vomiting) Post-COVID syndrome Scar tissue Surgical History History of ankle surgery Hx of cholecystectomy History of reduction mammoplasty History of section Family History Father Non-Hodgkin lymphoma Mother No problems noted. Brother Heart problem Other Mental health disorder Social History Housing: House Are you a primary ambulatory care coordinator to a significant other at home: No Do you presently have visiting nurse or other home services: No Alcohol intake: current Alcohol intake frequency: holidays/special occasions only Alcohol type: wine Comment: pt uses scooter Patient Tobacco Use Status: Never used Tobacco e-Cigarette/Vaping Use: Never Used Second Hand Smoke Exposure: No service: No Current occupational status: retired Cognitive needs: No Hearing needs: No Vision needs: Yes (glasses) Review of Systems Const All systems reviewed & are unremarkable except as noted in HPI and below Physical Exam Vital Signs: BMI result Body Mass Index 30.2 Const General: cooperative and no acute distress Orientation/consciousness: patient oriented x3 Resp Effort & Inspection: normal respiratory effort and able to speak in complete sentences Cardio Peripheral pulses: Peripheral pulses 2+ throughout Skin General skin exam: no rashes or lesions noted Neuro General: patient oriented x3 Extrem Other: Left knee: Normal to inspection. No ecchymosis, erythema, or joint effusion. No tenderness to palpation to the medial or lateral joint lines. Full knee extension and flexion. Negative Jared's. Negative anterior drawer. NVI. Assessment & Plan Assessment & Plan (1) Osteoarthritis of left knee: Code(s): M17.12 - Unilateral primary osteoarthritis, left knee Plan Ms. Bernard is a 62-year-old female who presents in the office today for an evaluation of left knee pain. The patient reports in in 04/2023 she hyper- extended the left knee due to being in a bad position while on an airplanes. She states it started to get better. Then in 06/2023 she states she was going up the stairs when she twisted the knee. She states she was using crutches to get a round due to the pain. She states she was seen by her PCP who referred to physical therapy, but she is unsure since she does not know what is wrong with the knee. The patient reports the pain is on the back side of her knee. The patient and I discussed different treatments for osteoarthritis of the left knee. At this time I have recommended for the patient to use compression, ice, and elevation to aid in reducing edema in the left knee. She is able to find the compression sleeve at the pharmacy. We discussed that the patient should try to avoid high impact activities, but I do recommend the use of a bike. I educated her that if she would like to go hiking she can take a Tylenol/Aleve prior to the hike to help with pain and edema. At this time due to her symptoms beginning to resolve we will deferred the cortisone injections at this time. Also at this time I do not feel she needs to attend physical therapy especially since she is so active. Follow up will be PRN, or sooner if needed. X-rays of the left knee which were obtained while in the office today and were reviewed by me, Keely Gutierrez PA-C, revealed osteoarthritis of the left knee. Orders: Orders XR knee standing BI Today M25.569 - Pain in unspecified knee Patient Instructions: Scribed for Keely Gutierrez PA-C by Kelsi Cummins, medical record clerk, on 08/03/2023 at 11:29 am, EST. Coding Level of Care Code Est Pt Level 4 (57265) Diagnoses Osteoarthritis of left knee M17.12
[2023-08-03 11:45] VITALS: BMI 30.2
== END 2023-08-03 12:12 | disposition home or self-care (01) ==
PROVIDERS: PCP Physician Assistant; Visit Provider Physician Assistant
DX: M17.12 Unilateral primary osteoarthritis, left knee (principal)
CPT/HCPCS: 99213

== ENCOUNTER 2023-10-03 11:21 | Outpatient (AMB) | payer OTHER, SELFPAY ==
--- NOTE | 2023-10-03 11:23 | A.OFFPC_ITS ---
Vital Signs 3 10/03/23 11:25 Height 5 ft 4 in Weight 176 lb 6 oz BMI 30.3 BP 126/82 Blood Pressure Location Lt brachial Position Sitting Pulse 89 Pulse Source Pulse Oximeter Pulse Oximetry (%) 100 Oxygen Delivery Method Room Air Intake Visit Reasons: hard ball size of pea back of neck Intake Note: The patient presents with a pea-sized lump and slight redness on the right side of the back of the neck. The patient mentions a family history of lymphoma in their father. Wood Gouger Required: No Accompanied by: Self / Same As Patient Allergies metoclopramide [Reglan] Allergy (Unknown, Verified 10/03/23 11:36) disorientated, Tachycardia, anxious Seasonal Allergies Allergy (Verified 10/03/23 11:36) Sneezing, Cough, Allergic Cold Medication List - Last Reconciled 10/03/23 by Tello Tapia PA-C ascorbic acid (vitamin C) (Vitamin C) 500 mg PO DAILY bupropion HCl 200 mg PO BID 90 days calcium carbonate-vitamin D3 600 mg calcium- 200 unit 1 tab PO DAILY cholecalciferol (vitamin D3) (Vitamin D3) 25 mcg PO DAILY estradiol 1 mg PO DAILY fluticasone propionate 50 mcg/actuation (Allergy Relief (fluticasone)) 2 sprays intranasal DAILY 1 month progesterone micronized 200 mg PO BEDTIME Tobacco use date assessed: 10/03/23 HPI hard ball size of pea back of neck 2 HPI0 Details Patient is a 62-year-old female here today for problem visit. She has noted a small lump on the back side of her neck to which he is concerned about. She does report a family history of lymphoma. She otherwise denies any recent infections or viral upper respiratory illnesses. She did have COVID in July of 2023 [facility] Medical History Allergic rhinitis Normal colonoscopy Perimenopausal vasomotor symptoms PONV (postoperative nausea and vomiting) Post-COVID syndrome Scar tissue Surgical History History of ankle surgery Hx of cholecystectomy History of reduction mammoplasty History of section Family History Father Non-Hodgkin lymphoma Mother No problems noted. Brother Heart problem Other Mental health disorder Social History Housing: House Are you a primary hospice care transitions coordinator to a significant other at home: No Do you presently have visiting nurse or other home services: No Alcohol intake: current Alcohol intake frequency: holidays/special occasions only Alcohol type: wine Comment: pt uses scooter Patient Tobacco Use Status: Never used Tobacco e-Cigarette/Vaping Use: Never Used Second Hand Smoke Exposure: No service: No Current occupational status: retired Cognitive needs: No Hearing needs: No Vision needs: Yes (glasses) Questionnaire PHQ-9 Over the last 2 weeks, how often have you been bothered by any of the following problems? 1. Little interest or pleasure in doing things: not at all 2. Feeling down, depressed, or hopeless: several days 3. Trouble falling or staying asleep, or sleeping too much: more than half the days 4. Feeling tired or having little energy: more than half the days 5. Poor appetite or overeating: not at all 6. Feeling bad about yourself - or that you are a failure or have let yourself or your family down: not at all 7. Trouble concentrating on things, such as reading the newspaper or watching television: several days 8. Moving or speaking so slowly that other people could have noticed. Or the opposite - being so fidgety or restless that you have been moving around a lot more than usual: not at all 9. Thoughts that you would be better off or of hurting yourself in some way: not at all Total score: 6 Depression Screening Interpretation: Positive Depression Screening Follow-up: Existing condition Depression Screening Done: Yes 74067 - PHQ-9 Billing: Yes Source: Developed by Drs. Kal Patel, Shelly Mckay, Ian Gao and colleagues, with an educational lynne from [employer] Thrive Questionnaire Date Thrive assessed: 10/03/23 I am a: Patient What is your living situation today?: I have a steady place to live Within the past 12 months, did the food you bought not last and you didn't have the money to get more?: Never true Within the past 12 months, did you worry whether your food would run out before you got money to buy more?: Never true Do you have trouble paying for medicines?: No Do you have trouble getting transportation to medical appointments?: No Do you have trouble paying your heating and electricity bill?: No Do you have trouble taking care of your child, family member or friend?: No Do you have trouble with day-to-day activities such as bathing, preparing meals, shopping, managing finances, etc.?: No Are you currently unemployed and looking for a job?: No Are you interested in more education?: No Please select the resources that you would like help with: None Currently or been in a relationship where the following occur: no concerns reported THRIVE Score: 0 AUDIT C Alcohol Use Questionnaire (AUDIT-C) 1. How often do you have a drink containing alcohol?: Monthly or less 2. How many drinks containing alcohol do you have on a typical day when you are drinking?: 1 or 2 3. How often do you have six or more drinks on one occasion?: Never Total Score: 1 ROLAND-7 AMB Questionnaire ROLAND-7 Date ROLAND - 7 assessed: 10/03/23 Feeling nervous, anxious, or on edge: 0 = Not at all Not being able to stop or control worryin = Not at all Worrying too much about different things: 0 = Not at all Trouble relaxin = Not at all Being so restless that it is hard to sit still: 0 = Not at all Becoming easily annoyed or irritable: 0 = Not at all Feeling afraid as if something awful might happen: 0 = Not at all Total ROLAND-7 score (0-4 normal; 5-9 mild; 10-14 moderate; 15-21 severe): 0 Source: Developed by Drs. Kal Patel, Shelly Mckay, Ian Gao and colleagues, with an educational lynne from [employer]. ROLAND-7 Assessment Billing ROLAND-7 Assessment Tool: ROLAND-7 Assessment 65036 Review of Systems Const Denies headache(s) Eyes Denies loss of vision ENT Denies vertigo, Denies dizziness, Denies headache(s) and Denies sore throat Card Denies chest pain, Denies leg edema and Denies lightheadedness Resp Denies cough, Denies hemoptysis and Denies wheezing GI Denies abdominal pain, Denies melena, Denies constipation, Denies diarrhea and Denies vomiting Denies urinary frequency, Denies dysuria and Denies urinary urgency Musc Denies arthralgias, Denies joint swelling, Denies numbness and Denies tingling Neuro Denies Abnormal speech present, Denies behavioral changes, Denies vertigo, Denies dizziness, Denies headache(s), Denies loss of vision, Denies memory loss, Denies numbness and Denies tingling Psych Denies anxiety, Denies behavioral changes, Denies depression, Denies memory loss and Denies panic attacks Saji/Lymph Denies easy bleeding and Denies easy bruising Aller/Immun Denies wheezing Physical exam (Primary Care) Vital Signs: Last Vital Signs Pulse 89 10/03/23 11:25 BP 126/82 10/03/23 11:25 Pulse Ox 100 10/03/23 11:25 Oxygen Delivery Method Room Air 10/03/23 11:25 BMI result Body Mass Index 30.3 Tobacco/Smoking Status: Tobacco use Status Tobacco use date assessed 10/03/23 10/03/23 11:34 Patient Tobacco Use Status Never used Tobacco 10/03/23 11:23 e-Cigarette/Vaping Use Never Used 10/03/23 11:23 PHQ-9: PHQ-9 Score PHQ-9: Total score 6 10/03/23 11:53 Depression Screening Interpretation: Positive Depression Screening Follow-up: Existing condition Thrive Assessment: Date of Thrive Assessment Date Thrive assessed 10/03/23 10/03/23 11:34 Currently or been in a relationship where the following occur: no concerns reported Const General: healthy appearing, no acute distress, alert and awake Nutritional Appearance: well nourished Orientation/consciousness: oriented to person, oriented to place and oriented to time HENNC Ears: TM's normal bilaterally General nose exam: Normal nasal mucous membranes and turbinates present Eyes Conjunctivae: conjunctivae normal Sclerae: sclerae normal Pupils: Equal, round and reactive pupils present Neck Neck: Yes no lymphadenopathy and Yes no JVD Thyroid: Thyroid normal Carotids: no bruits Neck images: 2 1. SMALL SOFT PALPABLE LUMP NOTED IN THE AREA OUTLINED. Resp Effort & Inspection: normal respiratory effort and not tachypneic Auscultation: no crackles, no rales, no rhonchi and no wheezes Cardio Rate: regular rate Rhythm: regular rhythm Heart sounds: no murmurs and normal S1 and S2 GI Palpation (GI): Soft to palpation, nontender, no hepatomegaly and no splenomegaly Auscultation: normal bowel sounds Skin General skin exam: no rashes or lesions noted and dry skin Neuro General: oriented to person, oriented to place and oriented to time Cranial nerves: Yes Equal, round and reactive pupils present Speech: No Abnormal speech present Gait exam (Neuro): Normal gait present Motor exam (neuro): no tremor noted Extrem Right upper extremity: full ROM Left upper extremity: full ROM Right lower extremity: full ROM; no edema Left lower extremity: full ROM; no edema Psych Mental Status: mental status grossly normal Speech and movement: Normal speech and movement present Affect: normal affect Attitude: cooperative Thought process: Normal thought process present Assessment and Plan Assessment & Plan (1) Cervical lymphadenitis: Code(s): I88.9 - Nonspecific lymphadenitis, unspecified Plan: Has noted a small lymph node on the posterior right side of her cervical lymph node chain. She is concerned as her father did have lymphoma. Will send for ultrasound to evaluate the swollen lymph node. (2) MDD (major depressive disorder): Code(s): F32.9 - Major depressive disorder, single episode, unspecified Qualifiers: Major depression recurrence: recurrent Active/Remission status: c urrently active Major depression episode severity: mild Qualified Code(s): F 33.0 - Major depressive disorder, recurrent, mild Plan: Patient's PHQ-9 score positive for mild depression which has been existing condition for her. She does continue on bupropion 200 b.i.d. with good effect. Orders: Orders 2 US soft tiss head and/or neck 10/03/23 I88.9 - Nonspecific lymphadenitis, unspecified Comprehensive [place]. Panel Fast 10/03/23 Z13.1 - Encounter for screening for diabetes mellitus Coding Level of Care Code Est Pt Level 3 (29763) Diagnoses Cervical lymphadenitis I88.9 Mild episode of recurrent major depressive disorder F33.0 Major depression recurrence: recurrent Active/Remission status: currently active Major depression episode severity: mild Additional Codes ROLAND-7 Assessment Billing - ROLAND-7 Assessment Tool: ROLAND-7 Assessment [id number] ([id number])
[2023-10-03 11:25] VITALS: BP 126/82; PULSE 89; O2SAT 100; BMI 30.3
== END 2023-10-03 11:51 | disposition home or self-care (01) ==
PROVIDERS: PCP Physician Assistant; Visit Provider Physician Assistant
DX: I88.9 Nonspecific lymphadenitis, unspecified (principal); F33.0 Major depressive disorder, recurrent, mild
CPT/HCPCS: 99213

== ENCOUNTER 2023-11-28 10:20 | Outpatient (REF) | payer OTHER, SELFPAY ==
[2023-11-28 11:54] LABS: Alanine Aminotransferase 19 U/L (0-31); Albumin Level 3.9 g/dL (3.5-5.0); Alkaline Phosphatase 128 U/L (39-117); Anion Gap 13 (12-20); Aspartate Amino Transferase 20 U/L (5-31); Bilirubin Total 0.5 mg/dL (0.0-1.0); Blood Urea Nitrogen 12 mg/dL (9-16); Calcium 9.6 mg/dL (8.4-10.2); Carbon Dioxide 28 mmol/L (22-29); Chloride 105 mmol/L (96-108); Estimated Glomerular Filt Rate > 60; Glucose Random 70 mg/dL (60-115); Lipase 30 U/L (8-78); Sodium 142 mmol/L (135-145); Total Protein 7.3 g/dL (6.5-8.0)
== END 2023-11-28 10:21 | disposition home or self-care (01) ==
LOC: HO.LAB 10:20
PROVIDERS: PCP Physician Assistant; Visit Provider Physician Assistant Medical
DX: K82.8 Other specified diseases of gallbladder (principal)
CPT/HCPCS: 36415; 80053; 83690

== ENCOUNTER 2024-03-27 13:47 | Outpatient (REF) | payer OTHER, SELFPAY ==
[2024-03-27 15:42] LABS: Alanine Aminotransferase 15 U/L (0-31); Alkaline Phosphatase 115 U/L (39-117); Anion Gap 8 (12-20); Aspartate Amino Transferase 19 U/L (5-31); Bilirubin Total 0.5 mg/dL (0.0-1.0); Blood Urea Nitrogen 8 mg/dL (9-16); Calcium 9.5 mg/dL (8.4-10.2); Carbon Dioxide 29 mmol/L (22-29); Chloride 107 mmol/L (96-108); Estimated Glomerular Filt Rate > 60; Glucose Fasting 78 mg/dL (60-99); Potassium 3.9 mmol/L (3.3-5.1); Sodium 140 mmol/L (135-145); Total Protein 7.2 g/dL (6.5-8.0)
== END 2024-03-27 13:48 | disposition home or self-care (01) ==
LOC: HO.LAB 13:47
PROVIDERS: PCP Physician Assistant; Visit Provider Physician Assistant
DX: Z13.1 Encounter for screening for diabetes mellitus (principal)
CPT/HCPCS: 36415; 80053

== ENCOUNTER 2024-04-03 13:14 | Outpatient (AMB) | payer OTHER, SELFPAY ==
--- NOTE | 2024-04-03 13:19 | A.OFFPC_ITS ---
Vital Signs 04/03/24 13:31 Height 5 ft 4 in Weight 170 lb 2 oz BMI 29.2 BP 120/70 Blood Pressure Location Lt brachial Position Sitting Pulse 95 Pulse Source Pulse Oximeter Pulse Oximetry (%) 98 Oxygen Delivery Method Room Air Intake Visit Reasons: Annual PE Intake Note: Patient is here today for a physical. Byproducts Extractor Required: No Accompanied by: Self / Same As Patient Allergies metoclopramide [Reglan] Allergy (Unknown, Verified 04/03/24 13:34) disorientated, Tachycardia, anxious Seasonal Allergies Allergy (Verified 04/03/24 13:34) Sneezing, Cough, Allergic Cold Medication List - Last Reconciled 04/03/24 by TETE Cramer-C ascorbic acid (vitamin C) (Vitamin C) 500 mg PO DAILY bupropion HCl SR 200 mg PO BID 90 days calcium carbonate-vitamin D3 600 mg calcium- 200 unit 1 tab PO DAILY cholecalciferol (vitamin D3) (Vitamin D3) 25 mcg PO DAILY estradiol 1 mg PO DAILY fluticasone propionate 50 mcg/actuation (Allergy Relief (fluticasone)) 2 sprays intranasal DAILY 1 month lorazepam 1 mg PO ONCE PRN 1 day progesterone micronized 200 mg PO BEDTIME Tobacco use date assessed: 10/03/23 Dental Screening Dental Screen Date: 04/03/24 Did you have a dental visit in the last 12 months?: Yes Did you have a dental problem in the last 6 months where you did not have access to dental care?: No Was dental information given to patient?: Patient has dentist HPI Annual PE HPI Details Patient is a 63-year-old female ?here today for annual physical.. Patient has a past medical history significant for depression, GERD,? postmenopausal- Hot flashes --Concern> reports over the last few wee ks feeling somewhat tired and fatigued. She attributes this to her recent three-week vacation [place] of the [place]. ? .. ? depresssion: She reports her mood is stable on Wellbutrin .? Otherwise denies SI or HI.. ... ? .. ? MAmmo: ? Has upcoming mammogram appointment ? .. ? Family history of cardiovascular disease/ HLD. Reports she has a brother that has a structural a rhythmic heart disease. .. Colonoscopy :? Colonoscopy done in 2020, two rectal tubular adenomas polyps found, repeat 5 years--> 2025 .. VAccine: UTD with COVID and FLu , Need tdap, shingles vaccine.?? PFSH Medical History (Updated 04/03/24 @ 13:58 by Tello Tapia PA-C) Sphincter of Oddi dysfunction PONV (postoperative nausea and vomiting) Allergic rhinitis Scar tissue Post-COVID syndrome Normal colonoscopy Perimenopausal vasomotor symptoms Surgical History History of ankle surgery Hx of cholecystectomy History of reduction mammoplasty History of section Family History (Updated 04/03/24 @ 13:40 by Tello Tapia PA-C) Father Non-Hodgkin lymphoma Mother No problems noted. Brother Heart problem Prostate cancer Other Mental health disorder Social History (Updated 04/03/24 @ 13:41 by Tello Tapia PA-C) Housing: House Are you a primary career counselor to a significant other at home: No Do you presently have visiting nurse or other home services: No Alcohol intake: current Alcohol intake frequency: holidays/special occasions only Alcohol type: wine Comment: pt uses scooter Patient Tobacco Use Status: Never used Tobacco e-Cigarette/Vaping Use: Never Used Second Hand Smoke Exposure: No service: No Current occupational status: retired Cognitive needs: No Hearing needs: No Vision needs: Yes (glasses) Questionnaire PHQ-9 Over the last 2 weeks, how often have you been bothered by any of the following problems? 1. Little interest or pleasure in doing things: several days 2. Feeling down, depressed, or hopeless: not at all 3. Trouble falling or staying asleep, or sleeping too much: several days 4. Feeling tired or having little energy: more than half the days 5. Poor appetite or overeating: not at all 6. Feeling bad about yourself - or that you are a failure or have let yourself or your family down: not at all 7. Trouble concentrating on things, such as reading the newspaper or watching television: not at all 8. Moving or speaking so slowly that other people could have noticed. Or the opposite - being so fidgety or restless that you have been moving around a lot more than usual: not at all 9. Thoughts that you would be better off or of hurting yourself in some way: not at all Total score: 4 Depression Screening Interpretation: Positive Depression Screening Follow-up: Existing condition Depression Screening Done: Yes 52089 - PHQ-9 Billing: Yes Source: Developed by Drs. Kal Patel, Shelly Mckay, Ian Gao and colleagues, with an educational lynne from [employer]. Thrive Questionnaire Date Thrive assessed: 04/01/24 I am a: Patient What is your living situation today?: I have a steady place to live Within the past 12 months, did the food you bought not last and you didn't have the money to get more?: Never true Within the past 12 months, did you worry whether your food would run out before you got money to buy more?: Never true Do you have trouble paying for medicines?: No Do you have trouble getting transportation to medical appointments?: No Do you have trouble paying your heating and electricity bill?: No Do you have trouble taking care of your child, family member or friend?: No Do you have trouble with day-to-day activities such as bathing, preparing meals, shopping, managing finances, etc.?: No Are you currently unemployed and looking for a job?: No Are you interested in more education?: No Please select the resources that you would like help with: None Currently or been in a relationship where the following occur: No concerns reported THRIVE Score: 0 AUDIT C Alcohol Use Questionnaire (AUDIT-C) 1. How often do you have a drink containing alcohol?: Monthly or less 2. How many drinks containing alcohol do you have on a typical day when you are drinking?: 1 or 2 3. How often do you have six or more drinks on one occasion?: Never Total Score: 1 ROLAND-7 AMB Questionnaire ROLAND-7 Date ROLAND - 7 assessed: 04/03/24 Feeling nervous, anxious, or on edge: 1 = Several days Not being able to stop or control worryin = Not at all Worrying too much about different things: 0 = Not at all Trouble relaxin = Not at all Being so restless that it is hard to sit still: 0 = Not at all Becoming easily annoyed or irritable: 0 = Not at all Feeling afraid as if something awful might happen: 0 = Not at all Total ROLAND-7 score (0-4 normal; 5-9 mild; 10-14 moderate; 15-21 severe): 1 Source: Developed by Drs. Kal Patel, Shelly Mckay, Ian Gao and colleagues, with an educational lynne from [employer]. ROLAND-7 Assessment Billing ROLAND-7 Assessment Tool: ROLAND-7 Assessment 38029 Review of Systems Const Denies body aches, Denies chills, Denies excessive sweating, Denies fatigue, Denies fever(s) and Denies headache(s) Eyes Denies blurry vision ENT Denies dysphagia, Denies vertigo, Denies dizziness, Denies headache(s), Denies hearing loss and Denies tinnitus Card Denies chest pain, Denies chest pain with activity, Denies syncope, Denies irregular heart rhythm and Denies dyspnea Resp Denies chest congestion, Denies cough, Denies hemoptysis, Denies dyspnea and Denies wheezing GI Denies abdominal pain, Denies melena, Denies hematochezia, Denies coffee ground emesis, Denies dysphagia, Denies diarrhea, Denies nausea and Denies vomiting Denies urinary frequency, Denies dysuria, Denies urinary hesitancy and Denies urinary urgency Musc Denies arthralgias, Denies limited range of motion, Denies muscle cramps and Denies muscle weakness Skin/Breast Denies rash and Denies skin ulcer Neuro Denies Abnormal speech present, Denies confusion, Denies vertigo, Denies dizziness, Denies syncope, Denies headache(s), Denies memory loss and Denies seizure-like activity Psych Denies anxiety, Denies confusion, Denies depression, Denies memory loss, Denies panic attacks and Denies paranoia Endo Denies excessive sweating, Denies fatigue, Denies flushing, Denies polydipsia and Denies polyuria Aller/Immun Denies wheezing Physical exam (Primary Care) Vital Signs: Last Vital Signs Pulse 95 04/03/24 13:31 BP 120/70 04/03/24 13:31 Pulse Ox 98 04/03/24 13:31 Oxygen Delivery Method Room Air 04/03/24 13:31 BMI result Body Mass Index 29.2 Tobacco/Smoking Status: Tobacco use Status Tobacco use date assessed 10/03/23 04/03/24 13:19 Patient Tobacco Use Status Never used Tobacco 04/03/24 13:41 e-Cigarette/Vaping Use Never Used 04/03/24 13:41 PHQ-9: PHQ-9 Score PHQ-9: Total score 4 04/03/24 14:08 Depression Screening Interpretation: Positive Depression Screening Follow-up: Existing condition Thrive Assessment: Date of Thrive Assessment Date Thrive assessed 04/01/24 04/03/24 13:19 Currently or been in a relationship where the following occur: No concerns reported Const General: cooperative, comfortable, no acute distress, alert and awake; No confusion Orientation/consciousness: oriented to person, oriented to place, patient oriented x3 and No confusion HENMT Head: Yes normocephalic Ears: external ears normal and TM's normal bilaterally Face and sinus: No sinus tenderness Mouth: Normal oral and palatal mucosa present and tongue normal Teeth and gingiva: dentition normal and gingiva normal Throat: Yes posterior oropharynx normal, Yes tonsils normal and Yes uvula midline Eyes Conjunctivae: conjunctivae normal Sclerae: sclerae normal Pupils: Equal, round and reactive pupils present EOM: EOMs intact bilaterally Direct Ophthalmoscopy: No no photophobia Neck Neck: Yes no lymphadenopathy, No tender and Yes no JVD Thyroid: Thyroid normal Carotids: no bruits Chest Chest palpation & inspection: no tenderness Resp Effort & Inspection: normal respiratory effort, no audible wheezes, not labored and no stridor Auscultation: no crackles, no rales, no rhonchi and no wheezes Cardio Jugular venous distension: no JVD Rate: regular rate, not bradycardic and not tachycardic Rhythm: regular rhythm Bruits: no carotid bruits Peripheral pulses: Peripheral pulses 2+ throughout GI Inspection: Yes normal to inspection, No abdominal wall ecchymosis and No visible herniation Palpation (GI): Soft to palpation, nontender, no guarding, not rigid and No hepatosplenomegaly present Auscultation: normoactive bowel sounds General: Yes no CVA tenderness Back/Spine/Pelvis Back: no CVA tenderness and No back tenderness Cervical Spine: cervical ROM normal Thoracic/Lumbar Spine: thoracic and lumbar spine normal to inspection, straight leg raise negative bilaterally, No thoraco-lumbar ROM limited and No lumbar spinal tenderness Skin Lesions: no lesions Rashes: no rashes Wounds: no wounds Neuro General: oriented to person, oriented to place, patient oriented x3, CN's II-XI intact bilaterally and No confusion Cranial nerves: Yes Equal, round and reactive pupils present and Yes Normal accommodation reflex present Cognition (Neuro): normal cognition Speech: No Abnormal speech present Gait exam (Neuro): Normal gait present Motor exam (neuro): 5/5 motor strength present throughout Extrem Right upper extremity: full ROM; no cyanosis Left upper extremity: full ROM; no cyanosis Right lower extremity: no edema Left lower extremity: no edema Psych Appearance: grossly normal Mental Status: mental status grossly normal Affect: normal affect Attitude: cooperative Thought process: Normal thought process present Immunizations Boostrix Tdap 2.5 Lf unit-8 mcg-5 Lf/0.5 mL intramuscular syringe Performing Provider: Tello Tapia PA-C Performing Location: [facility] [place] [facility] Administered by: MANNY De Jesus on 04/03/24 14:08 Dose Route Admin Location Dispensed Lot Number Expiration Date [facility] Residential Fee Appraiser 0.5 mL IM Left Deltoid 0.5 mL [id number] 05/05/26 [id number] [employer] VIS Given Date VIS Provided VIS Publication Date 04/03/24 Single Vaccine 21 Eligibility Eligibility Date Funding Source Not [facility] Eligible 04/03/24 Private Assessment and Plan Assessment & Plan (1) Annual physical exam: Code(s): Z00.00 - Encounter for general adult medical examination without abnormal findings (2) Fatigue: Code(s): R53.83 - Other fatigue Qualifiers: Fatigue type: chronic, unspecified Qualified Code(s): R53.82 - Chronic fatigue, unspecified Plan: Patient reports several week history of fatigue, attributes to recent travel. Willing to check CBC and thyroid. (3) MDD (major depressive disorder): Code(s): F32.9 - Major depressive disorder, single episode, unspecified Qualifiers: Active/Remission status: currently active Major depression episode severity: mild Major depression recurrence: recurrent Qualified Code(s): F33.0 - Major depressive disorder, recurrent, mild Plan: Patient's PHQ-9 score positive for mild depression which has been existing co ndition for her . Patient suffers with chronic depression though has been fairly stable for a while now. Continues on Wellbutrin with good effect. (4) Family history of high cholesterol: Code(s): Z83.42 - Family history of familial hypercholesterolemia Plan: Patient does have family history of high cholesterol, will like to have fasting lipid panel checked. Orders: Orders Complete Blood Count no Diff 04/03/24 R53.82 - Chronic fatigue, unspecified IRON PROFILE 04/03/24 D50.9 - Iron deficiency anemia, unspecified, R53.82 - Chronic fatigue, unspecified TSH reflex Free T4 04/03/24 R53.82 - Chronic fatigue, unspecified Lipid Panel 04/03/24 Z83.42 - Family history of familial hypercholesterolemia TDaP Immunization 04/03/24 Z23 - Encounter for immunization, Z83.42 - Family history of familial hypercholesterolemia Coding Level of Care Code Est Pt Prev Care 40-64y(95509) Diagnoses Annual physical exam Z00.00 Chronic fatigue R53.82 Fatigue type: chronic, unspecified Mild episode of recurrent major depressive disorder F33.0 Active/Remission status: currently active Major depression episode severity: mild Major depression recurrence: recurrent Family history of high cholesterol Z83.42 Additional Codes ROLAND-7 Assessment Billing - ROLAND-7 Assessment Tool: ROLAND-7 Assessment [id number] ([id number])
[2024-04-03 13:31] VITALS: BP 120/70; PULSE 95; O2SAT 98; BMI 29.2
== END 2024-04-03 14:08 | disposition home or self-care (01) ==
PROVIDERS: PCP Physician Assistant; Visit Provider Physician Assistant
DX: Z00.00 Encounter for general adult medical examination without abnormal findings (principal); R53.82 Chronic fatigue, unspecified; F33.0 Major depressive disorder, recurrent, mild; Z83.42 Family history of familial hypercholesterolemia

== ENCOUNTER → 2024-04-03 13:14 | Outpatient (BNVA) | payer OTHER, SELFPAY | PROVIDERS: PCP Physician Assistant; Visit Provider Physician Assistant | DX: Z00.01 Encounter for general adult medical examination with abnormal findings (principal); R53.82 Chronic fatigue, unspecified; F33.0 Major depressive disorder, recurrent, mild; Z83.42 Family history of familial hypercholesterolemia; Z23 Encounter for immunization | CPT/HCPCS: 90471; 90715; 96127 ==

== ENCOUNTER 2024-05-31 12:06 | Outpatient (REF) | payer OTHER, SELFPAY ==
--- NOTE | ~2024-05-31 | MM_ITS ---
EXAMINATION: MM SCREENING DIGITAL BREAST TOMOSYNTHESIS, BILATERAL CLINICAL INFORMATION: Screening. Asymptomatic. COMPARISON: Mammography: Comparison is made with available priors TECHNIQUE: Digital breast mammography with tomosynthesis is performed in both the craniocaudal and mediolateral oblique views along with computer-aided detection (CAD). FINDINGS: There are scattered areas of fibroglandular density (ACR BI-RADS breast composition Category b). Bilateral reduction mammoplasty. There are no significant masses, abnormal calcifications, or other abnormalities. MM/MM tomosynthesis screening BI IMPRESSION: No mammographic evidence of malignancy. ASSESSMENT: BI-RADS BI-RADS 1 - Negative RECOMMENDATION: Routine annual mammography screening. 1 year F/U This examination should not preclude the clinical evaluation of a suspicious palpable abnormality. This patient's information was entered into a reminder system with a target due date for their next mammogram. Electronically signed by: Aimee Melchor DO 06/11/2024 10:57 AM GANESH
== END 2024-05-31 12:07 | disposition home or self-care (01) ==
LOC: HO.MAMMO 12:06
PROVIDERS: PCP Physician Assistant; Visit Provider Obstetrics & Gynecology
DX: Z12.31 Encounter for screening mammogram for malignant neoplasm of breast (principal)
CPT/HCPCS: 77063; 77067

== ENCOUNTER → 2024-05-31 12:15 | Outpatient (BNV) | payer OTHER, SELFPAY | PROVIDERS: PCP Physician Assistant; Visit Provider Internal Medicine | DX: Z12.31 Encounter for screening mammogram for malignant neoplasm of breast (principal) | CPT/HCPCS: 77063; 77067 ==

== ENCOUNTER → 2025-02-27 15:10 | Outpatient (BNVA) | payer OTHER, SELFPAY | PROVIDERS: PCP Physician Assistant; Visit Provider Internal Medicine | DX: M17.12 Unilateral primary osteoarthritis, left knee (principal); L23.9 Allergic contact dermatitis, unspecified cause | CPT/HCPCS: 96127 ==

== ENCOUNTER → 2025-02-27 15:10 | Outpatient (AMB) | payer OTHER, SELFPAY ==
--- NOTE | 2025-02-27 15:11 | A.OFFPC_ITS ---
Intake Visit Reasons: Rash Allergies metoclopramide (Reglan) Allergy (Unknown, Verified 02/27/25 15:11) disorientated, Tachycardia, anxious Seasonal Allergies Allergy (Verified 02/27/25 15:11) Sneezing, Cough, Allergic Cold Medication List - Last Reconciled 02/27/25 by Jean Paul Casas MD ascorbic acid (vitamin C) (Vitamin C) 500 mg PO DAILY bupropion HCl SR 200 mg PO BID 90 days calcium carbonate-vitamin D3 600 mg calcium- 200 unit 1 tab PO DAILY cholecalciferol (vitamin D3) (Vitamin D3) 25 mcg PO DAILY estradiol 1 mg PO DAILY fluticasone propionate 50 mcg/actuation (Allergy Relief (fluticasone)) 2 sprays intranasal DAILY 1 month hydrocortisone 2.5% 1 appl topical BID PRN lorazepam 1 mg PO ONCE PRN 1 day progesterone micronized 200 mg PO BEDTIME Tobacco use date assessed: 02/27/25 Fall risk assessment: No Falls in past year Last assessed Fall Risk: 02/27/25 Dental Screening Dental Screen Date: 02/27/25 Did you have a dental visit in the last 12 months?: Yes Did you have a dental problem in the last 6 months where you did not have access to dental care?: No Was dental information given to patient?: Patient has dentist HPI Rash HPI Details Tried to call twice with no response.rash noted last week- has been weeding and the rash has been migrating different placed , has hydrocortisone cream. and asking [facility] Medical History (Updated 02/27/25 @ 17:48 by Jean Paul Casas MD) Sphincter of Oddi dysfunction PONV (postoperative nausea and vomiting) Allergic rhinitis Scar tissue Post-COVID syndrome Normal colonoscopy Perimenopausal vasomotor symptoms Surgical History History of ankle surgery Hx of cholecystectomy History of reduction mammoplasty History of section Family History (Updated 04/03/24 @ 13:40 by Tello Tapia PA-C) Father Non-Hodgkin lymphoma Mother No problems noted. Brother Heart problem Prostate cancer Other Mental health disorder Social History (Updated 04/03/24 @ 13:41 by Tello Tapia PA-C) Housing: House Are you a primary child care director to a significant other at home: No Do you presently have visiting nurse or other home services: No Alcohol intake: current Alcohol intake frequency: holidays/special occasions only Alcohol type: wine Comment: pt uses scooter Patient Tobacco Use Status: Never used Tobacco Tobacco use type: Cigarette e-Cigarette/Vaping Use: Never Used Second Hand Smoke Exposure: No service: No Current occupational status: retired Cognitive needs: No Hearing needs: No Vision needs: Yes (glasses) Questionnaire PHQ-9 Over the last 2 weeks, how often have you been bothered by any of the following problems? 1. Little interest or pleasure in doing things: several days 2. Feeling down, depressed, or hopeless: not at all 3. Trouble falling or staying asleep, or sleeping too much: several days 4. Feeling tired or having little energy: more than half the days 5. Poor appetite or overeating: not at all 6. Feeling bad about yourself - or that you are a failure or have let yourself or your family down: not at all 7. Trouble concentrating on things, such as reading the newspaper or watching television: not at all 8. Moving or speaking so slowly that other people could have noticed. Or the opposite - being so fidgety or restless that you have been moving around a lot more than usual: not at all 9. Thoughts that you would be better off or of hurting yourself in some way: not at all Total score: 4 Depression Screening Interpretation: Positive Depression Screening Follow-up: Existing condition Depression Screening Done: Yes 77370 - PHQ-9 Billing: Yes Source: Developed by Drs. Kal Patel, Shelly Mckay, Ian Gao and colleagues, with an educational lynne from [employer]. Thrive Questionnaire Date Thrive assessed: 02/27/25 I am a: Patient What is your living situation today?: I have a steady place to live Within the past 12 months, did the food you bought not last and you didn't have the money to get more?: Never true Within the past 12 months, did you worry whether your food would run out before you got money to buy more?: Never true Do you have trouble paying for medicines?: No Do you have trouble getting transportation to medical appointments?: No Do you have trouble paying your heating and electricity bill?: No Do you have trouble taking care of your child, family member or friend?: No Do you have trouble with day-to-day activities such as bathing, preparing meals, shopping, managing finances, etc.?: No Are you currently unemployed and looking for a job?: No Are you interested in more education?: No Please select the resources that you would like help with: None Currently or been in a relationship where the following occur: No concerns rep orted THRIVE Score: 0 AUDIT C Alcohol Use Questionnaire (AUDIT-C) 1. How often do you have a drink containing alcohol?: Monthly or less 2. How many drinks containing alcohol do you have on a typical day when you are drinking?: 1 or 2 3. How often do you have six or more drinks on one occasion?: Never Total Score: 1 ROLAND-7 AMB Questionnaire ROLAND-7 Date ROLAND - 7 assessed: 02/27/25 Feeling nervous, anxious, or on edge: 1 = Several days Not being able to stop or control worryin = Not at all Worrying too much about different things: 0 = Not at all Trouble relaxin = Not at all Being so restless that it is hard to sit still: 0 = Not at all Becoming easily annoyed or irritable: 0 = Not at all Feeling afraid as if something awful might happen: 0 = Not at all Total ROLAND-7 score (0-4 normal; 5-9 mild; 10-14 moderate; 15-21 severe): 1 Source: Developed by Drs. Kal Patel, Shelly Mckay, Ian Gao and colleagues, with an educational lynne from [employer]. ROLAND-7 Assessment Billing ROLAND-7 Assessment Tool: ROLAND-7 Assessment 14591 Physical exam (Primary Care) Tobacco/Smoking Status: Tobacco use Status Tobacco use date assessed 02/27/25 02/27/25 15:13 Patient Tobacco Use Status Never used Tobacco 02/27/25 15:13 Tobacco use type Cigarette 02/27/25 15:13 e-Cigarette/Vaping Use Never Used 02/27/25 15:13 PHQ-9: PHQ-9 Score PHQ-9: Total score 4 02/27/25 15:13 Depression Screening Interpretation: Positive Depression Screening Follow-up: Existing condition Thrive Assessment: Date of Thrive Assessment Date Thrive assessed 02/27/25 02/27/25 15:13 Currently or been in a relationship where the following occur: No concerns reported Telehealth Telehealth Telehealth Platform: Other (please specify) ([employer]) Location of provider rendering services: practice address Location of patient: address on file Patient Identification confirmed using: Name, : Yes Telehealth method: video Patient verbally consented to treatment: Yes Patient verbally consented to billing insurance company: Yes Patient informed of any privacy concerns related to visit: Yes Minutes spent on Phone/Video with Pt.: 15 Coding Level of Care Code Tele Est Pt Level 3 (94595) Diagnoses Allergic contact dermatitis L23.9 Additional Codes ROLAND-7 Assessment Billing - ROLAND-7 Assessment Tool: ROLAND-7 Assessment 22015 ([id number]) PHQ-9 - 90225 - PHQ-9 Billing: Yes ([id number]) Assessment & Plan Assessment & Plan (1) Allergic contact dermatitis: Code(s): L23.9 - Allergic contact dermatitis, unspecified cause Category: Medical Plan History of Present Illness The patient is a 64-year-old female presenting with a concern of skin irritation likely due to exposure to plants. She reports a history of recurring skin issues after spending time in areas with extensive plant life, including weeds and poison sagar. The lesions manifest as pruritic, red welts that develop after contact with these plants. Her had prescription hydrocortisone, which she previously used with success when her symptoms were less intense. Her medical history is notable for depression, treated with bupropion, and she has osteoarthritis of the left knee. Blood tests from March 2023 indicated normal results for blood count, electrolytes, and renal function. She manages other conditions with medications including progesterone, lorazepam, estradiol, Flonase, vitamin D, calcium, and ascorbic acid. Review of Systems - Skin: Reports pruritic lesions following plant exposure. - Psychological: Managed depression, denies acute changes in mood. - Musculoskeletal: Chronic left knee osteoarthritis, no acute changes reported. - General: Denies fever or systemic symptoms associated with skin lesions. Plan 1. 5% hydrocortisone cream has been provided with recommendations for prudent use. Patient consented to the advised regimen and is aware of the risks associated with steroid creams. Current management of depression and osteoarthritis remains unchanged, and she will consult during her upcoming annual physical. Prescription was sent to [facility] Patient was informed and verbally consented to the use of an ambient scribe for clinic note documentation during this visit. Discussion Notes During our discussion, I explained that the topical 2.5% hydrocortisone cream has previously helped her manage similar episodes. The patient has experienced relief in the past using this treatment and consents to use caution with this therapy to prevent long-term use complications like skin thinning. We discussed returning if symptoms worsen or do not improve, and it was agreed to continue her current medications unless otherwise indicated. Arrangements were confirmed for her upcoming annual examination, allowing further assessment of any ongoing issues. Patient Instructions - Use hydrocortisone cream as prescribed for itchiness. - Avoid prolonged use to prevent skin thinning. - Monitor the area for changes and report any worsening symptoms. - Continue current medications as directed. - Attend annual physical next month for further assessment. - Wear protective clothing when exposed to plant material in the future, as feasible. Medications: New hydrocortisone 2.5% 1 appl topical BID PRN 30 grams 0RF skin irritation L23.9 - Allergic contact dermatitis, unspecified cause
--- OUTSIDE RECORDS SUMMARY | 2025-02-27 15:41 | XMS_ITS | Encounter Summary ---
Author Organization [facility] Address [address] [place] [address] Phone Care Team Providers Care Extract Wringer Name Role Phone Tello Tapia Primary Care Provider + Encounter Details Date Type Department Care Team (Late st Contact Info) Description 09/26/2022 Procedure Pass [facility], [address] [address] Social History Tobacco Use Types Packs/Day Years Used Date Smoking Tobacco: Never Assessed Comments Unknown Sex and Gender Information Value Date Recorded Sex Assigned at Not on file Legal Sex Female 10:35 AM EST Gender Identity Not on file Sexual Orientation Not on file documented as of this encounter Plan of Treatment Not on file documented as of this encounter Visit Diagnoses Not on filedocumented in this encounter Care Teams Extract Wringer Relationship Specialty Start Date End Date Tello Tapia PA [address] [place] [id number] PCP - General Physician Donor Services Coordinator 08/25/22 documented as of this encounter Additional Source Comments The information contained in this document represents components of the legal health record. It is not the complete legal health record.[facility]
== END ==
LOC: HO.HMCH 15:10
PROVIDERS: PCP Physician Assistant; Visit Provider Internal Medicine
DX: L23.9 Allergic contact dermatitis, unspecified cause (principal)

== ENCOUNTER 2025-04-07 15:51 | Outpatient (AMB) | payer OTHER, SELFPAY ==
[2025-04-07 16:27] VITALS: BP 140/90; PULSE 92; TEMP 36.3; O2SAT 98; BMI 30.6
--- NOTE | 2025-04-07 16:27 | A.OFFPC_ITS ---
Vital Signs 04/07/25 16:27 04/07/25 17:12 Height 5 ft 4 in Weight 178 lb 2 oz BMI 30.6 BP 140/90 H 140/80 H Blood Pressure Location Lt brachial Position Sitting Pulse 92 Pulse Source Pulse Oximeter Temp 97.3 F Temp Source Temporal Artery Scan Pulse Oximetry (%) 98 Oxygen Delivery Method Room Air Intake Visit Reasons: Annual Exam Allergies metoclopramide (Reglan) Allergy (Unknown, Verified 04/07/25 16:45) disorientated, Tachycardia, anxious Seasonal Allergies Allergy (Verified 04/07/25 16:45) Sneezing, Cough, Allergic Cold Medication List - Last Reconciled 04/07/25 by TETE Cramer-Ottoniel ascorbic acid (vitamin C) (Vitamin C) 500 mg PO DAILY bupropion HCl SR 200 mg PO BID 90 days calcium carbonate-vitamin D3 600 mg calcium- 200 unit 1 tab PO DAILY cholecalciferol (vitamin D3) (Vitamin D3) 25 mcg PO DAILY estradiol 1 mg PO DAILY fluticasone propionate 50 mcg/actuation (Allergy Relief (fluticasone)) 2 sprays intranasal DAILY 1 month hydrocortisone 2.5% 1 appl topical BID PRN omeprazole 20 mg PO DAILY progesterone micronized 200 mg PO BEDTIME Tobacco use date assessed: 04/07/25 Fall risk assessment: No Falls in past year Last assessed Fall Risk: 04/07/25 Dental Screening Dental Screen Date: 04/07/25 Did you have a dental visit in the last 12 months?: Yes Did you have a dental problem in the last 6 months where you did not have access to dental care?: No Was dental information given to patient?: Patient has dentist HPI Annual Exam HPI Details Patient is a 64-year-old female ?here today for annual physical.. Patient has a past medical history significant for depression, GERD,? postmenopausal- Hot flashes --Concern> Chronic fatigue is reported, with the patient feeling exhausted all the time and experiencing difficulty maintaining energy levels. She attributes this to poor sleep quality over the past decade, exacerbated by menopause-related symptoms --> Also the patient expresses concerns about memory, specifically word-finding difficulties, and seeks baseline neurological evaluation due to her mother's history of Alzheimer's disease. She reports good cognitive function in structured tasks but struggles with spontaneous speech. Elevated blood pressure readings: The patient reports a history of hypertension, with a current blood pressure reading of 140/80 mmHg during the visit. She mentions that her blood pressure tends to normalize after a few minutes, suggesting possible white coat hypertension. .. Low back crepitus: The patient experiences low back pain, characterized by a crackling sensation in the lower spine, which she describes as not terribly painful but concerning due to family history of multiple myeloma. She is considering a bone density test to check for osteoporosis. ? .. ? depresssion: She reports her mood is stable on Wellbutrin .? Otherwise denies SI or HI.. ... ? .. ? MAmmo: ? Has upcoming mammogram appointment ? .. ? Family history of cardiovascular disease/ HLD. Reports she has a brother that has a structural a rhythmic heart disease. .. Colonoscopy :? Colonoscopy done in 2020, two rectal tubular adenomas polyps found, repeat 5 years--> 2025 .. VAccine: UTD with COVID and FLu , up-to-date with tdap, shingles vaccine.?? PFSH Medical History Sphincter of Oddi dysfunction PONV (postoperative nausea and vomiting) Allergic rhinitis Scar tissue Post-COVID syndrome Normal colonoscopy Perimenopausal vasomotor symptoms Surgical History History of ankle surgery Hx of cholecystectomy History of reduction mammoplasty History of section Family History (Updated 04/07/25 @ 16:52 by Tello Tapia PA-C) Father Non-Hodgkin lymphoma Mother No problems noted. Brother Heart problem Prostate cancer Other Mental health disorder Social History Housing: House Are you a primary nurse wound care to a significant other at home: No Do you presently have visiting nurse or other home services: No Alcohol intake: current Alcohol intake frequency: holidays/special occasions only Alcohol type: wine Comment: pt uses scooter Patient Tobacco Use Status: Never used Tobacco Tobacco use type: Cigarette e-Cigarette/Vaping Use: Never Used Second Hand Smoke Exposure: No service: No Current occupational status: retired Cognitive needs: No Hearing needs: No Vision needs: Yes (glasses) Questionnaire PHQ-9 Over the last 2 weeks, how often have you been bothered by any of the following problems? 1. Little interest or pleasure in doing things: several days 2. Feeling down, depressed, or hopeless: not at all 3. Trouble falling or staying asleep, or sleeping too much: more than half the days 4. Feeling tired or having little energy: nearly every day 5. Poor appetite or overeating: not at all 6. Feeling bad about yourself - or that you are a failure or have let yourself or your family down: not at all 7. Trouble concentrating on things, such as reading the newspaper or watching television: not at all 8. Moving or speaking so slowly that other people could have noticed. Or the opposite - being so fidgety or restless that you have been moving around a lot more than usual: not at all 9. Thoughts that you would be better off or of hurting yourself in some way: not at all Total score: 6 Depression Screening Interpretation: Positive Depression Screening Follow-up: Existing condition and Declines treatment Depression Screening Done: Yes 47186 - PHQ-9 Billing: Yes Source: Developed by Drs. Kal Patel, Shelly Mckay, Ian Gao and colleagues, with an educational lynne from [employer] Thrive Questionnaire Date Thrive assessed: 04/05/25 I am a: Patient What is your living situation today?: I have a steady place to live Within the past 12 months, did the food you bought not last and you didn't have the money to get more?: Never true Within the past 12 months, did you worry whether your food would run out before you got money to buy more?: Never true Do you have trouble paying for medicines?: No Do you have trouble getting transportation to medical appointments?: No Do you have trouble paying your heating and electricity bill?: No Do you have trouble taking care of your child, family member or friend?: No Do you have trouble with day-to-day activities such as bathing, preparing meals, shopping, managing finances, etc.?: No Are you currently unemployed and looking for a job?: No Are you interested in more education?: No Please select the resources that you would like help with: None Currently or been in a relationship where the following occur: No concerns reported THRIVE Score: 0 AUDIT C Alcohol Use Questionnaire (AUDIT-C) 1. How often do you have a drink containing alcohol?: 2-4 times a month 2. How many drinks containing alcohol do you have on a typical day when you are drinking?: 1 or 2 3. How often do you have six or more drinks on one occasion?: Never Total Score: 2 ROLAND-7 AMB Questionnaire ROLAND-7 Date ROLAND - 7 assessed: 02/27/25 Feeling nervous, anxious, or on edge: 0 = Not at all Not being able to stop or control worryin = Not at all Worrying too much about different things: 1 = Several days Trouble relaxin = Several days Being so restless that it is hard to sit still: 0 = Not at all Becoming easily annoyed or irritable: 0 = Not at all Feeling afraid as if something awful might happen: 0 = Not at all Total ROLAND-7 score (0-4 normal; 5-9 mild; 10-14 moderate; 15-21 severe): 2 Source: Developed by Drs. Kal Patel, Shelly Mckay, Ian Gao and colleagues, with an educational lynne from [employer] ROLAND-7 Assessment Billing ROLAND-7 Assessment Tool: ROLAND-7 Assessment 67224 Review of Systems Const Denies body aches, Denies chills, Denies excessive sweating, Denies fatigue, Denies fever(s) and Denies headache(s) Eyes Denies blurry vision ENT Denies dysphagia, Denies vertigo, Denies dizziness, Denies headache(s), Denies hearing loss and Denies tinnitus Card Denies chest pain, Denies chest pain with activity, Denies syncope, Denies irregular heart rhythm and Denies dyspnea Resp Denies chest congestion, Denies cough, Denies hemoptysis, Denies dyspnea and Denies wheezing GI Denies abdominal pain, Denies melena, Denies hematochezia, Denies coffee ground emesis, Denies dysphagia, Denies diarrhea, Denies nausea and Denies vomiting Denies urinary frequency, Denies dysuria, Denies urinary hesitancy and Denies urinary urgency Musc Denies arthralgias, Denies limited range of motion, Denies muscle cramps and Denies muscle weakness Skin/Breast Denies rash and Denies skin ulcer Neuro Denies Abnormal speech present, Denies confusion, Denies vertigo, Denies dizziness, Denies syncope, Denies headache(s), Denies memory loss and Denies seizure-like activity Psych Denies anxiety, Denies confusion, Denies depression, Denies memory loss, Denies panic attacks and Denies paranoia Endo Denies excessive sweating, Denies fatigue, Denies flushing, Denies polydipsia and Denies polyuria Aller/Immun Denies wheezing Physical exam (Primary Care) Vital Signs: Last Vital Signs Temp 97.3 F 04/07/25 16:27 Pulse 92 04/07/25 16:27 BP 140/80 H 04/07/25 17:12 Pulse Ox 98 04/07/25 16:27 Oxygen Delivery Method Room Air 04/07/25 16:27 BMI result Body Mass Index 30.6 BMI Assessment/Plan discussion: High BMI High, discussed plan: lifestyle, weight reduction, dietary and physical activity Tobacco/Smoking Status: Tobacco use Status Tobacco use date assessed 04/07/25 04/07/25 16:32 Patient Tobacco Use Status Never used Tobacco 04/07/25 16:28 Tobacco use type Cigarette 04/07/25 16:28 e-Cigarette/Vaping Use Never Used 04/07/25 16:28 PHQ-9: PHQ-9 Score PHQ-9: Total score 6 04/07/25 17:07 Depression Screening Interpretation: Positive Depression Screening Follow-up: Existing condition and Declines treatment Thrive Assessment: Date of Thrive Assessment Date Thrive assessed 04/05/25 04/07/25 16:28 Currently or been in a relationship where the following occur: No concerns reported Const General: cooperative, comfortable, no acute distress, alert and awake; No confusion Orientation/consciousness: oriented to person, oriented to place, patient oriented x3 and No confusion HENMT Head: Yes normocephalic Ears: external ears normal and TM's normal bilaterally Face and sinus: No sinus tenderness Mouth: Normal oral and palatal mucosa present and tongue normal Teeth and gingiva: dentition normal and gingiva normal Throat: Yes posterior oropharynx normal, Yes tonsils normal and Yes uvula midline Eyes Conjunctivae: conjunctivae normal Sclerae: sclerae normal Pupils: Equal, round and reactive pupils present EOM: EOMs intact bilaterally Direct Ophthalmoscopy: No no photophobia Neck Neck: Yes no lymphadenopathy, No tender and Yes no JVD Thyroid: Thyroid normal Carotids: no bruits Chest Chest palpation & inspection: no tenderness Resp Effort & Inspection: normal respiratory effort, no audible wheezes, not labored and no stridor Auscultation: no crackles, no rales, no rhonchi and no wheezes Cardio Jugular venous distension: no JVD Rate: regular rate, not bradycardic and not tachycardic Rhythm: regular rhythm Bruits: no carotid bruits Peripheral pulses: Peripheral pulses 2+ throughout GI Inspection: Yes normal to inspection, No abdominal wall ecchymosis and No visible herniation Palpation (GI): Soft to palpation, nontender, no guarding, not rigid and No hepatosplenomegaly present Auscultation: normoactive bowel sounds General: Yes no CVA tenderness Back/Spine/Pelvis Back: no CVA tenderness and No back tenderness Cervical Spine: cervical ROM normal Thoracic/Lumbar Spine: thoracic and lumbar spine normal to inspection, straight leg raise negative bilaterally, No thoraco-lumbar ROM limited and No lumbar spinal tenderness Skin Lesions: no lesions Rashes: no rashes Wounds: no wounds Neuro Other: CLOCK DRAWING TEST APPROPRIATE General: oriented to person, oriented to place, patient oriented x3, CN's II-XI intact bilaterally and No confusion Cranial nerves: Yes Equal, round and reactive pupils present and Yes Normal accommodation reflex present Cognition (Neuro): normal cognition Speech: No Abnormal speech present Gait exam (Neuro): Normal gait present Motor exam (neuro): 5/5 motor strength present throughout Extrem Right upper extremity: full ROM; no cyanosis Left upper extremity: full ROM; no cyanosis Right lower extremity: no edema Left lower extremity: no edema Psych Appearance: grossly normal Mental Status: mental status grossly normal Affect: normal affect Attitude: cooperative Thought process: Normal thought process present Orientation What is the (year) (season) (date) (day) (month)?: year Where are we (state) (county) (town or city) (hospital) (floor)?: town or city Attention & Calculation (CHOOSE ONE) Ask pt to begin with 100 & count backward by 7. Stop after 5 repeats. If pt cannot ask them to spell the word WORLD backward.: 65 Spell WORLD backwards (DLROW): 5 letters Recall Ask patient to repeat the 3 items from question #3.: object 3 Language Show patient a wristwatch & ask what it is. 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.0 Active/Remission status: currently active Major depression episode severity: mild Major depression recurrence: recurrent Class 1 obesity E66.811 Word finding difficulty R47.89 Additional Codes PHQ-9 - 41007 - PHQ-9 Billing: Yes ([id number]) ROLAND-7 Assessment Billing - ROLAND-7 Assessment Tool: ROLAND-7 Assessment [id number] ([id number]) Assessment & Plan Assessment & Plan (1) Annual physical exam: Code(s): Z00.00 - Encounter for general adult medical examination without abnormal findings Category: Medical Plan: As per HPI (2) Low back pain: Code(s): M54.50 - Low back pain, unspecified Category: Medical Qualifiers: Back pain laterality: midline Chronicity: acute Sciatica presence: without sciatica Qualified Code(s): M54.50 - Low back pain, unspecified Plan: A bone density test is planned to evaluate for osteoporosis, given the patient's back symptoms and family history concerns. (3) Chronic fatigue: Code(s): R53.82 - Chronic fatigue, unspecified Category: Medical Plan: Chronic fatigue has been a long-term condition for Porfirio The patient will undergo routine laboratory tests to assess blood pressure management and evaluate for potential vitamin deficiencies contributing to fatigue. (4) MDD (major depressive disorder): Code(s): F32.9 - Major depressive disorder, single episode, unspecified Category: Medical Qualifiers: Active/Remission status: currently active Major depression episode severity: mild Major depression recurrence: recurrent Qualified Code(s): F33.0 - Major depressive disorder, recurrent, mild Plan: Patient continues with Wellbutrin for depression, PHQ-9 score positive for depression which has been existing condition for her. (5) Class 1 obesity: Code(s): E66.811 - Obesity, class 1 Category: Medical Plan: Patient does understand her BMI is over 30 will continue working on trying to be more physically active and adapt to better eating habits to reduce her weight. (6) Word finding difficulty: Code(s): R47.89 - Other speech disturbances Category: Medical Plan: For memory concerns, a baseline neurological evaluation was discussed, including cognitive testing to monitor any progression related to family history of Al zheimer's disease. Orders: Orders Lipid Panel 04/07/25 Z83.42 - Family history of familial hypercholesterolemia Comprehensive [place]. Panel Fast 04/07/25 Z13.1 - Encounter for screening for diabetes mellitus Complete Blood Count no Diff 04/07/25 Z13.1 - Encounter for screening for diabetes mellitus Vitamin B12 and Folate 04/07/25 E53.8 - Deficiency of other specified B group vitamins, E66.811 - Obesity, class 1 Vitamin D 25-OH Total 04/07/25 E66.811 - Obesity, class 1
[2025-04-07 17:12] VITALS: BP 140/80
== END 2025-04-07 17:18 | disposition home or self-care (01) ==
LOC: HO.HMCH 15:52
PROVIDERS: PCP Physician Assistant; Visit Provider Physician Assistant
DX: Z00.00 Encounter for general adult medical examination without abnormal findings (principal); M54.50 Low back pain, unspecified; E66.811 Obesity, class 1; Z68.30 Body mass index [BMI] 30.0-30.9, adult; R53.82 Chronic fatigue, unspecified; F33.0 Major depressive disorder, recurrent, mild; R47.89 Other speech disturbances

== ENCOUNTER → 2025-04-07 15:51 | Outpatient (BNVA) | payer OTHER, SELFPAY | PROVIDERS: PCP Physician Assistant; Visit Provider Physician Assistant | DX: Z00.00 Encounter for general adult medical examination without abnormal findings (principal); M54.50 Low back pain, unspecified; F33.0 Major depressive disorder, recurrent, mild; E66.811 Obesity, class 1; R47.89 Other speech disturbances; Z68.30 Body mass index [BMI] 30.0-30.9, adult | CPT/HCPCS: 96127 ==

== ENCOUNTER 2025-04-10 09:28 | Outpatient (REF) | payer OTHER, SELFPAY ==
[2025-04-10 09:56] LABS: Hematocrit 42.1 % (37.0-47.0); Hemoglobin 13.8 g/dl (12.0-16.0); Mean Corpuscular HGB Conc 32.8 g/dl (31.0-35.0); Mean Corpuscular Hemoglobin 31.2 pg (27.0-33.0); Mean Corpuscular Volume 95.2 fL (80.0-98.0); NRBC Abs Auto 0.000 X10*3/uL (0.0-0.012); NRBC Pct Auto 0.0 /100WBC (0.0-0.2); Platelet Count 341 X10*3/uL (160-400); Red Blood Count 4.42 X10*6/uL (4.20-5.50); White Blood Count 5.9 X10*3/uL (4.8-10.8)
[2025-04-10 10:38] LABS: Alanine Aminotransferase 34 U/L (0-31); Albumin Level 4.3 g/dL (3.5-5.0); Alkaline Phosphatase 131 U/L (39-117); Anion Gap 10 (12-20); Aspartate Amino Transferase 33 U/L (5-31); Blood Urea Nitrogen 13 mg/dL (9-16); Calcium 9.5 mg/dL (8.4-10.2); Carbon Dioxide 29 mmol/L (22-29); Chloride 106 mmol/L (96-108); Cholesterol 191 mg/dL (<200); Estimated Glomerular Filt Rate > 60; HDL Cholesterol 60 mg/dL (>40); Potassium 4.1 mmol/L (3.3-5.1); Sodium 141 mmol/L (135-145); Total Protein 7.5 g/dL (6.5-8.0); Triglycerides 110 mg/dL (<150)
[2025-04-10 11:04] LABS: Folate 8.9 ng/mL (> or = 4.0); Vitamin B12 < 148 pg/mL (200-900)
== END 2025-04-10 09:29 | disposition home or self-care (01) ==
LOC: HO.LAB 09:28
PROVIDERS: PCP Physician Assistant; Visit Provider Physician Assistant
DX: Z13.1 Encounter for screening for diabetes mellitus (principal); E53.8 Deficiency of other specified B group vitamins; E66.811 Obesity, class 1; Z83.42 Family history of familial hypercholesterolemia
CPT/HCPCS: 36415; 80053; 80061; 82306; 82607; 82746; 85027

== ENCOUNTER 2025-06-02 12:54 | Outpatient (REF) | payer OTHER, SELFPAY ==
--- NOTE | ~2025-06-02 | MM_ITS ---
EXAMINATION: MM SCREENING DIGITAL BREAST TOMOSYNTHESIS, BILATERAL CLINICAL INFORMATION: Screening. Asymptomatic. History of bilateral reduction mammoplasty. COMPARISON: Comparison made to multiple prior, most recent May 31, 2024, and most remote September 24, 2020. TECHNIQUE: Digital breast tomosynthesis is performed in mediolateral oblique and craniocaudal views along with computer-aided detection (CAD). Synthesized 2D images are generated from the tomosynthesis. FINDINGS: BREAST COMPOSITION: There are scattered areas of fibroglandular density. RIGHT BREAST: Status post reduction mammoplasty. No significant masses, suspicious calcifications or other abnormalities are seen. LEFT BREAST: Status post reduction mammoplasty. Focal asymmetry in the lower outer quadrant middle depth and upper outer quadrant anterior depth are not significantly changed from at least 2020. No significant masses, suspicious calcifications or other abnormalities are seen. MM/MM tomosynthesis screening BI IMPRESSION: BILATERAL BREASTS: Benign, no mammographic evidence of malignancy. Normal interval follow-up is recommended in 12 months. ASSESSMENT: BI-RADS: Category 2: Benign RECOMMENDATION: Routine annual mammography screening. FOLLOW-UP: 1 year F/U This examination should not preclude the clinical evaluation of a suspicious palpable abnormality. This patient's information was entered into a reminder system with a target due date for their next mammogram. Electronically signed by: You Lambert MD 06/04/2025 04:55 PM GANESH
--- OUTSIDE RECORDS SUMMARY | 2025-06-03 01:35 | XMS_ITS | Data Portability ---
Author Organization [place] - [facility],, SIERRA DIEHL MD Address [address] [address] Care Team Providers Care Pantograph Setter Name Role Phone ANATOLIY ABRAHAM Primary Care Provider Assessment No assessment recorded. Plan of Treatment Reminders Order Date Submit Date Provider Last Modified By Organization Details Last Modified Time Details Appointments ANNUAL EXAM 2025 01:20P Vivian Diehl MD Not available Not available Not available Lab cytology report, thin prep, smear or scraping , cervical or vaginal 2024 025 MAGDALENA [facility] (Centralized Electronic Ordering - All Locations), Patient Can Go To The Location Of Their Choice, [id number] 03/21/2025 18:16:09 cytology report, thin prep, smear or scraping , cervical or vaginal 2023 024 MAGDALENA [facility] (Centralized Electronic Ordering - All Locations), Patient Can Go To The Location Of Their Choice, 03/25/2024 12:05:43 pap test, thinprep , cervical 2022 023 [email or web address] [facility] (Centralized Electronic Ordering - All Locations), Patient Can Go To The Location Of Their Choice, [id number] 03/30/2023 07:42:11 pap test, thinprep , cervical 2021 022 [facility], Cytopathology Service, [address] [place] [address], [address], 03/29/2022 07:40:17 pap, LB [address] [facility], Cytopathology Service, [address] [facility], [place], [address], 09/15/2021 10:15:48 Referral None recorded . Procedures None recorded . Surgeries None recorded . Imaging MAMMO, screenin g, digital, bilatera l - Breast Aspirati on and/or Biopsy if needed 2024 025 [email or web address] [facility] (Mammo), [address] [facility] [place], [address], 03/20/2025 15:31:49 MAMMO, screenin g, digital, bilatera l - Breast Aspirati on and/or Biopsy if needed 2023 024 [facility] (Mammo), [address] [facility] [place], [address], 06/11/2024 11:02:33 MAMMO, screenin g, digital, bilatera l - Breast Aspirati on and/or Biopsy if needed 2022 023 [email or web address] [facility] (Mammo), [address] [facility] [place], [address], 03/12/2024 07:19:14 MAMMO, screenin g, digital, bilatera l 2021 022 [facility] (Mammo), [address] [facility] [place], [address], 04/14/2022 08:08:48 Medication Orders estradio l 1 mg tablet 2024 025 [facility], [address] [facility], [place], [address], 03/20/2025 13:49:39 progeste shanthi microniz ed 200 mg capsule 2024 025 [facility], [address] [place], [address], 03/20/2025 13:49:39 estradio l 1 mg tablet 2023 024 MAGDALENA [facility], [address] [address], [id number], 03/19/2024 13:31:55 progeste shanthi microniz ed 200 mg capsule 2023 024 MAGDALENA [facility], [address] [address], [address], 03/19/2024 13:31:53 progeste shanthi microniz ed 200 mg capsule 2022 023 MAGDALENA [facility], [address] [address], [address], 03/16/2023 09:32:48 estradio l 1 mg tablet 2022 023 MAGDALENA [facility], [address] [place] [address], [address], 03/16/2023 09:32:47 progeste shanthi microniz ed 200 mg capsule 2021 022 MAGDALENA [facility], [address] [place] [address], [address], 03/15/2022 14:34:44 estradio l 1 mg tablet 2021 022 MAGDALENA [facility], [address] [place] [address], [id number], 03/15/2022 14:34:44 Patient TargetsNo targets recorded. Patient Instructions Encounter Date Encounter Id Patient Instructions Last Modified By Organization Details Last Modified Time 08/26/2021 [id number] abnormal Pap kassandra t: care instructions [email or web address] Not available 08/26/2021 13:34:55 She is here for repeat pap after pap with ASCUS with negtive HPV. She notes tht in her past history she had mild dysplasia. Pap is taken. She has questions about HPV related diseae, pap smears, etc. All answered to her satisfaction. Not available 08/26/2021 13:55:19 03/15/2022 [id number] learning about healthy weight Not available 03/15/2022 14:34:42 She is here for annual exam, doing well on HRT and elects to continue, no bleeding. Note from 2020: She is here for annual exam, started HRT last year and feels oh so much better. She still gets night sweats when she drinks red wine, especially if more than one glass. She appears to be doing well. She is advised to get 1500 mg of calcium daily into her diet and supplements combined. We discussed the benefits of adequate vitamin D supplementation to at least 400 units daily, daily aerobic exercise of 30 minutes, and stress reduction. Monthly self breast exam was taught, and stressed, and is advised to call if she discovers any new mass in the breast. We discussed having her continue to take hormone replacement therapy. We discussed the need to take a progestin if a uterus is present, and the rationale behind that. We discussed the stated risks of one in 10,000 of development of a blood clot/DVT/PE that could be life threatening. We discussed the Women's Health Initiative study and the findings. We discused the PEPPI study as well. She is aware that there are conflicting reports in the medical literature concerning the risks and benefits of HRT. We disussed that women are advised by ACOG to take HRT in the lowest dose necessary, and for the shortest time necessary, to control their symptoms. After a long discussion of the potential risks and benefits of HRT she elects to continue HRT. All questions were answered. Rx for HRT is called in to the pharmacy. Call if any vaginal bleeding occurs upon initiation of HRT, or at any time postmenopausally. Not available 03/15/2022 14:35:10 03/16/2023 [id number] learning about healthy weight Not available 03/16/2023 09:29:03 She is here for annual exam, doing well on HRT and elects to continue, no bleeding. She had some questions about possibly weaning down off HRT, after discussion she is aware how to do this if she wishes. On exam: there is a 3 mm area of significant tenderness on the right areolae at the edge at the 11 o'clock. Nothing visible. She is advised to keep an eye on this, and if it persists then let me know and I will refer her to have it assessed at a breast surgery center. She had never noticed it before so is not certain how long it has been there. Mammo is next month. We discussed having her continue to take hormone replacement therapy. We discussed the need to take a progestin if a uterus is present, and the rationale behind that. We discussed the stated risks of one in 10,000 of development of a blood clot/DVT/PE that could be life threatening. We discussed the Women's Health Initiative study and the findings. We discused the PEPPI study as well. She is aware that there are conflicting reports in the medical literature concerning the risks and benefits of HRT. We disussed that women are advised by ACOG to take HRT in the lowest dose necessary, and for the shortest time necessary, to control their symptoms. After a long discussion of the potential risks and benefits of HRT she elects to continue HRT. All questions were answered. Rx for HRT is called in to the pharmacy. Call if any vaginal bleeding occurs upon initiation of HRT, or at any time postmenopausally. Not available 03/16/2023 09:32:16 03/19/2024 [id number] learning about healthy weight Not available 03/19/2024 13:31:51 She is here for annual, doing well on her HRT. Note from 2022: She is here for annual exam, doing well on HRT and elects to continue, no bleeding. She had some questions about possibly weaning down off HRT, after discussion she is aware how to do this if she wishes. On exam: there is a 3 mm area of significant tenderness on the right areolae at the edge at the 11 o'clock. Nothing visible. She is advised to keep an eye on this, and if it persists then let me know and I will refer her to have it assessed at a breast surgery center. She had never noticed it before so is not certain how long it has been there. Mammo is next month. She appears to be doing well. We discussed having her continue to take hormone replacement therapy. We discussed the need to take a progestin if a uterus is present, and the rationale behind that. We discussed the stated risks of one in 10,000 of development of a blood clot/DVT/PE that could be life threatening. We discussed the Women's Health Initiative study and the findings. We discused the PEPPI study as well. She is aware that there are conflicting reports in the medical literature concerning the risks and benefits of HRT. We disussed that women are advised by ACOG to take HRT in the lowest dose necessary, and for the shortest time necessary, to control their symptoms. After a long discussion of the potential risks and benefits of HRT she elects to continue HRT. All questions were answered. Rx for HRT is called in to the pharmacy. Call if any vaginal bleeding occurs upon initiation of HRT, or at any time postmenopausally. Not available 03/19/2024 13:41:17 03/20/2025 [id number] learning about healthy weight Not available 03/20/2025 13:49:36 She is here for annual, doing well on her HRT. Personal history of cervical dysplasia, needs annual pap. She appears to be doing well. . We discussed having her continue to take hormone replacement therapy. We discussed the need to take a progestin if a uterus is present, and the rationale behind that. We discussed the stated risks of one in 10,000 of development of a blood clot/DVT/PE that could be life threatening. We discussed the Women's Health Initiative study and the findings. We discused the PEPPI study as well. She is aware that there are conflicting reports in the medical literature concerning the risks and benefits of HRT. We disussed that women are advised by ACOG to take HRT in the lowest dose necessary, and for the shortest time necessary, to control their symptoms. After a long discussion of the potential risks and benefits of HRT she elects to continue HRT. All questions were answered. Rx for HRT is called in to the pharmacy. Call if any vaginal bleeding occurs upon initiation of HRT, or at any time postmenopausally. Not available 03/20/2025 13:40:05 Reason for Referral None Reported. Results Created Date Observation Date Name Description Value Unit Range Abnormal Flag Note LastModifiedBy Organization Detail LastModifiedTime 08/26/19 22 08/26/2021 PAP1C ASE [id number] ThinP rep Pap, Image d: NEGAT HORTENCIA FOR SQUAM OUS INTRA EPITH ELIAL LESIO N AND MALIG PARTHA . React hortencia cellu lar marika es. Note: The Pap test is a scree sagar test with an inher ent false negat hortencia rate. Autom ated presc reeni ng of all liqui d based speci mens is perfo rmed by the ThinP rep Imagi ng Syste m unles s other [place] state d. David davis , [place]( CP) (Case Scree herberth 09 13 2021) Rogers Vann M.D. , Patho logis t (Case elect alaina ally ana luisa d 09 14 2021) ADEQU ACY: Satis facto ry Endoc ervic al/tr ansfo rmati on zone compo nent absen t. SOURC E: ThinP rep Pap HPV IF ASCUS , Cervi jesu, Image d CLINI JESU INFOR MATIO N: HPV If Diagn osis of ASCUS . 3 month repea t pap, lps ascus neg hpv. [r87. 610]. Not Available [facility], Cytopathology Service [address] [facility], [place], [address], 09/15/2021 10:15:48 03/15/20 22 03/15/2022 PAP1C ASE [id number] ThinP rep Pap, Image d: NEGAT HORTENCIA FOR SQUAM OUS INTRA EPITH ELIAL LESIO N AND MALALEAH PARTHA . Infla mmato ry hairston es prese nt. David Sanchez r , CT( CP) (Case elect alaina ally ana luisa d 03 22 2022) ADEQU ACY: Satis facto ry Endoc ervic al/tr ansfo rmati on zone compo nent absen t. SOURC E: ThinP rep Pap HPV IF Ascus : Refle x 16 and 18, Cervi jesu, Image d CLINI JESU INFOR MATIO N: HPV If Diagn osis of ASCUS . Menop ause, lps neg, [Z01. 419] Not Available [facility], Cytopathology Service [address] [facility], [place], [address], 03/23/2022 12:56:29 03/16/20 23 03/16/2023 [facility] CYTOL OGY results Maci nt Name: OLIMPIA BLANC : 1960 (Age: 62) Lab Acces sirisha #: [id number] Colle ction Date: 2022 Acces sirisha Date: 023 Sign Out Date: 023 Tissu e Sourc e: 1: THINP REP UNIX ANALYST PAP TEST, CERVI JESU: Final Diagn osis: NEGAT HORTENCIA FOR INTRA EPITH ELIAL LESIO N OR MALIG PARTHA . Satis facto ry for evalu ation . Endoc ervic al/tr ansfo rmati on zone ABSEN T. Parti ally obscu ring infla mmati on prese nt. Clini jesu Histo ry: Date of Last Menst rual Perio d: not avail able Menst rual Histo ry: Post- menop ausal Contr acept hortencia Histo ry: not avail able Ancil marleny Testi ng: HPV (ASCU S) Acid Wash perfo rmed( addit ional TP) Case image d by the ThinP rep Imagi ng Syste m with jhonny lopez rescr marla g or matt loredo. Perfo rmed at [facility] ate Refer ence [facility], [address] [place] Clini jesu Histo ry (othe r): Z01.4 19, ROUTI NE SCREE N, LPS 03/15 NEG Phone #: [phone], On-[place] ll Patho logis t: [id number] Not Available [facility] (Centralized Electronic Ordering - All Locations) Patient Can Go To The Location Of Their Choice, [address] 03/24/2023 14:12:00 03/19/20 24 03/25/2024 IGP, RFX APTIM A HPV ASCU diagnosis: Commen t NEGAT HORTENCIA FOR INTRA EPITH ELIAL LESIO N OR MALIG PARTHA . CELLU RADHA HAIRSTON ES ASSOC IATED WITH ATROP HY ARE PRESE NT. THIS SPECI MEN WAS RESCR EENED PART OF OUR QUALI TY CONTR OL PROGR AM. Not Available [facility] ([facility]) [address] [place], [address], 03/25/2024 12:05:43 03/19/20 24 03/25/2024 IGP, RFX APTIM A HPV ASCU specimen adequacy: Sophia stanford Satis facto jojo for evalu ation . Endoc ervic al compo nent may not be disti nguis hed in cases of atrop hy. Areas of parti ally obscu ring infla mmato ry exuda te are prese nt. Not Available [facility] ([facility]) [address] [place], [address], 03/25/2024 12:05:43 03/19/20 24 03/25/2024 IGP, RFX APTIM A HPV ASCU clinician provided ICD10: Sophia stanford Z01.4 19 Not Available [facility] ([facility]) [address] [place], [address], 03/25/2024 12:05:43 03/19/20 24 03/25/2024 IGP, RFX APTIM A HPV ASCU performed by: Sophia Matos , Cytot echno logis t (ASCP ) Not Available [facility] ([facility]) [address] [place], [address], 03/25/2024 12:05:43 03/19/20 24 03/25/2024 IGP, RFX APTIM A HPV ASCU QC reviewed by: Sophia Carmona , Cytot echno logis t (ASCP ) Not Available [facility] ([facility]) [address] [place], [address], 03/25/2024 12:05:43 03/19/20 24 03/25/2024 IGP, RFX APTIM A HPV ASCU . . Not Available [facility] ([facility]) [address] [facility], [place], [address], 03/25/2024 12:05:43 03/19/20 24 03/25/2024 IGP, RFX APTIM A HPV ASCU note: Commen t The Pap smear is a scree sagar test desig herberth to aid in the detec tion of pravin ligna nt and malig nant condi tions of the uteri ne cervi x. It is not a diagn ostic proce dure and shoul d not be used as the sole means of detec ting cervi jesu cance r. Both false -posi tive and false -nega tive repor ts do occur . Not Available [facility] ([facility]) [address] [facility], [place], [address], 03/25/2024 12:05:43 03/19/20 24 03/25/2024 IGP, RFX APTIM A HPV ASCU test methodology: Commen t This liqui d based ThinP rep(R ) pap test was scree herberth with the use of an image guide d syststef m. Not Available [facility] ([facility]) [address] [place], [address], 03/25/2024 12:05:43 03/19/20 24 03/25/2024 IGP, RFX APTIM A HPV ASCU . Commen t The HPV DNA refle x crite fidel were not met with this speci men resul t there fore, no HPV testi ng was perfo rmed. Not Available [facility] ([facility]) [address] [place], [address], 03/25/2024 12:05:43 03/20/20 25 03/21/2025 IGP, RFX APTIM A HPV ASCU diagnosis: Commen t NEGAT HORTENCIA FOR INTRA EPITH ELIAL LESIO N OR MALIG PARTHA . Not Available [facility] ([facility]) [address] [place], [address], 03/21/2025 18:16:09 03/20/20 25 03/21/2025 IGP, RFX APTIM A HPV ASCU specimen adequacy: Sophia stanford Satis facto ry for evalu ation . No endoc ervic al compo nent is ident ified . Not Available [facility] ([facility]) [address] [place], [address], 03/21/2025 18:16:09 03/20/20 25 03/21/2025 IGP, RFX APTIM A HPV ASCU clinician provided ICD10: Sophia stanford Z01.4 19 Not Available [facility] ([facility]) [address] [place], [address], 03/21/2025 18:16:09 03/20/20 25 03/21/2025 IGP, RFX APTIM A HPV ASCU performed by: Sophia Carmona , Cytol ogist (ASCP ) Not Available [facility] ([facility]) [address] [facility], [place], [address], 03/21/2025 18:16:09 03/20/20 25 03/21/2025 IGP, RFX APTIM A HPV ASCU . . Not Available [facility] ([facility]) [address] [place], [address], 03/21/2025 18:16:09 03/20/20 25 03/21/2025 IGP, RFX APTIM A HPV ASCU note: Sophia stanford The Pap smear is a scree sagar test desig herberth to aid in the detec tion of pravin ligna nt and malig nant condi tions of the uteri ne cervi x. It is not a diagn ostic proce dure and shoul d not be used as the sole means of detec ting cervi jesu cance r. Both false -posi tive and false -nega tive repor ts do occur . Not Available [facility] ([facility]) [address] [facility], [place], [address], 03/21/2025 18:16:09 03/20/20 25 03/21/2025 IGP, RFX APTIM A HPV ASCU test methodology: Commen t This liqui d based ThinP rep(R ) pap test was stacy kevin with the use of an image guide akua morales Not Available [facility] ([facility]) [address] [facility], [place], [address], 03/21/2025 18:16:09 03/20/20 25 03/21/2025 IGP, RFX APTIM A HPV ASCU . Commen t The HPV DNA refle x crite fidel were not met with this speci men resul t there fore, no HPV testi ng was perfo rmed. Not Available [facility] ([facility]) [address] [facility], [place], [address], 03/21/2025 18:16:09 10/20/19 22 10/19/2021 [place], breas t No observ ation record ed. [email or web address] [address] [place], [address], 10/19/2021 14:00:43 04/14/20 22 04/12/2022 MAMMO stacy, digit al, bilat eral No observ ation record ed. [email or web address] [address] [place], [address], 04/14/2022 08:34:33 06/11/20 24 05/31/2024 MAMMO stacy, digit al, bilat eral No observ ation record ed. [email or web address] [address] [place], [address], 06/11/2024 11:25:06 Result Notes None recorded. Problems Name Problem SNOMED Code Status Onset Date Resolution Date Notes Provider Name and Address Organization Details Recorded Time Atrophic vaginitis 92339899 Active 2019 Not Available [facility] 1 10:08:30 Menopausal syndrome 310773121 Active 2019 Not Available [facility] 1 10:08:30 Osteopenia 585228876 Active 2019 Not Available [facility] 1 10:08:30 Suspected COVID-19 160372876 Active 2019 Not Available [facility] 1 10:08:30 Suspected COVID-19 846329544 Active 2019 Not Available [facility] 1 10:08:30 History of dysplasia of cervix 832346090 Active 2021 Sierra Diehl MD [address] [facility] [address], [place], [address] , [place] - [facility], 2 13:34:02 Problem Notes None recorded. Procedures Surgical History Date Name Laterality Status Provider Name and Address Organization Details Recorded Time 04/12/20 24 Most Recent Mammogram completed Brandee Hernandez [place] - [facility], 03/20/2025 13:31:52 10/01/19 00 cholecystectomy completed Brandee Hernandez [place] - [facility], 02/04/2020 14:13:26 04/03/19 87 delivery completed Brandee Hernandez [place] - [facility], 02/04/2020 14:12:58 01/19/19 83 Nipple/areola reconstruction completed Brandee Hernandez [place] - [facility], 02/04/2020 14:14:01 procedure on ankle completed Roberto Marin MA - [facility], 03/16/2023 09:07:05 Imaging Results None recorded. Procedure Notes None recorded. Medical Equipment None Reported. Allergies Allergen ID Allergen Name Allergen Category Reaction Reaction Severity Criticality Documentation Date Start Date Code Code System Note Provider Name and Address Organization Details Recorded Time 90963 Reglan medicatio n confusion Not available Not available 02/04/2020 9230 RxNorm Brandee millard [place] - [facility], 0 14:01:28 Medications Name Sig Start Date Stop Date Status Note LastModified by Organization Details LastModified Time amoxicillin 500 mg capsule TAKE 1 CAPSULE BY MOUTH EVERY 6 HOURS UNTIL FINISHED 03/09 completed Not Available Not Available Not Available bupropion HCl SR 150 mg tablet,12 hr sustained-r elease 03/09 completed Not Available Not Available Not Available prednisone 20 mg tablet 03/16 completed Not Available Not Available Not Available amoxicillin 500 mg tablet TAKE 1 EVERY 6 HOURS UNTIL GONE. 03/16 completed Not Available Not Available Not Available estradiol 1 mg tablet TAKE 1 TABLET BY MOUTH EVERY DAY 2024 active Not Available Not Available Not Avai lable oseltamivir 75 mg capsule TAKE 1 CAPSULE BY MOUTH EVERY 12 HOURS FOR 5 DAYS 03/15 completed Not Available Not Available Not Available nitrofurant oin macrocrysta l 100 mg capsule TAKE 1 CAPSULE BY MOUTH EVERY 12 HOURS FOR 5 DAYS TAKE WITH A MEAL/ FOOD 08/26 completed Not Available Not Available Not Available prednisone 50 mg tablet 02/03 completed Not Available Not Available Not Available progesteron e micronized 200 mg capsule TAKE 1 CAPSULE BY MOUTH EVERYDAY AT BEDTIME 2024 active Not Available Not Available Not Avai lable hydrocortis one 2.5 % topical cream APPLY TOPICALLY 2 TIMES A DAY NEEDED FOR SKIN IRRITATIO N active Not Available Not Available No t Available montelukast 10 mg tablet 03/09 completed Not Available Not Available Not Available bisacodyl 5 mg tablet,barry yed release 08/26 completed Not Available Not Available Not Available lorazepam 1 mg tablet TAKE 1 TABLET BY MOUTH ONCE NEEDED FOR ANXIETY FOR 1 DAY 03/19 completed Not Available Not Available Not Available estradiol 0.01% (0.1 mg/gram) vaginal cream Insert 0.5 g every day by vaginal route. 03/09 completed Not Available Not Available Not Available fluticasone propionate 50 mcg/actuati on nasal spray,suspe nsion INSTILL 2 SPRAYS INTO EACH NOSTRIL DAILY FOR 1 MONTH active Not Available Not Available No t Available loratadine 10 mg tablet TAKE 1 TABLET BY MOUTH EVERY DAY 08/26 completed Not Available Not Available Not Available oxycodone 5 mg tablet TAKE 1 TABLET BY MOUTH EVERY 4 HOURS NEEDED FOR PAIN FOR 7 DAYS 03/16 completed Not Available Not Available Not Available bupropion HCl SR 200 mg tablet,12 hr sustained-r elease active Not Available Not Available Not Available Vitamin C active Not Available Not Petra ilable Not Available omeprazole 03/16 completed Not Available Not Available Not Available Vitamin D3 active Not Available Not Av ailable Not Available black cohosh 03/09 completed Not Available Not Available Not Available Calcium 500 active Not Available Not A vailable Not Available collagen (bovine) active Not Available Not Available Not Available Gavilax 17 gram/dose oral powder 08/26 completed Not Available Not Available Not Available Flonase Sensimist active Not Available Not Available No t Available Paxlovid 300 mg (150 mg x 2)-100 mg tablets in a dose pack TAKE 2 TABLETS (NIRMATRE LVIR) AND TAKE 1 TABLET (RITONAVI R) BY MOUTH TWICE A DAY FOR 5 DAYS 03/19 completed Not Available Not Available Not Available Vitals Date Recorded Body height Body mass index (BMI) Body weight Body temperature Heart rate Systolic And Diastolic Provider Name and Address Organization Details Last Updated DateTime 160.02 cm 30.5 kg/m2 51177.8 9 g 97.3 [degF] 85 /min 139/80 mm[Hg] Nguyen Sim in [facility], 2 13:09:24 Date Recorded Body height Body mass index (BMI) Body weight Heart rate Systolic And Diastolic Provider Name and Address Organization Details Last Updated DateTime 03/15/2022 160.02 cm 30.3 kg/m2 46381.3 g 82 /min 133/71 mm[Hg] Nguyen Sim in [facility], 03/15/2022 13:51:35 Date Recorded Body weight Body mass index (BMI) Body height Heart rate Systolic And Diastolic Provider Name and Address Organization Details Last Updated DateTime 03/16/2023 98045.26 g 31.2 kg/m2 160.02 cm 85 /min 111/55 mm[Hg] Nguyen Sim in [facility], 03/16/2023 09:06:11 Date Recorded Heart rate Body weight Body mass index (BMI) Body height Systolic And Diastolic Provider Name and Address Organization Details Last Updated DateTime 03/19/2024 90 /min 06211.17 g 29.5 kg/m2 162.56 cm 135/73 mm[Hg] Brandee Sim in [facility], 03/19/2024 13:16:50 Date Recorded Body height Body mass index (BMI) Body weight Heart rate Systolic And Diastolic Provider Name and Address Organization Details Last Updated DateTime 03/20/2025 162.56 cm 30.2 kg/m2 83849.26 g 78 /min 125/77 mm[Hg] Brandee Sim in [facility], 03/20/2025 13:27:02 Social History Question Answer Notes LastModified by Organizat ion Details LastModified Time Tobacco Smoking Status Never [facility]oker Not [facility] 05/19/2020 03:19:42 Do You Have An Advance Directive? Yes [id number] Information not available 05/19/2020 How Many Years Have You Consumed Alcohol? 39 Information not available 08/26/2021 What Is Your Level Of Caffeine Consumption? Occasional [id number] Information not available 05/19/2020 How Much Tobacco Do You Chew? None [id number] Information not available 05/19/2020 In The 14 Days Before Symptom Onset, Have You Had Close Contact With A Laboratory-confir med COVID-19 While That Case Was Ill? No [id number] Information not available 05/19/2020 If Patient Spent Time In [facility] - Does The Patient Live In [facility]? No Information not available 02/04/2020 In The 14 Days Before Symptom Onset, Have You Had Close Contact With A Person Who Is Under Investigation For COVID-19 While That Person Was Ill? No [id number] Information not available 05/19/2020 In The 14 Days Before Symptom Onset, Did The Patient Spend Time In [facility]? No Information not available 02/04/2020 Have You Been To An Area Known To Be High Risk For COVID-19? No [id number] Information not available 05/19/2020 What Type Of Diet Are You Following? REGULAR [id number] Information not available 05/19/2020 Which Illicit Or Recreational Drugs Have You Used? No [id number] Information not available 05/19/2020 Do You Reside In Or Have You Traveled To An Area Where Ebola Virus Transmission Is Active? No [id number] Information not available 05/19/2020 Education 4 Year College Informatio n not available 02/04/2020 What Is The Highest Grade Or Level Of School You Have Completed Or The Highest Degree You Have Received? [id number] Information not available 03/09/2021 How Many Days In The Past Year Have You Had A Heavy Drinking Consumption (4+ Female, 5+ Male)? 0 Information no t available 02/04/2020 Are There Any Guns Present In Your Home? No [id number] Information not available 05/19/2020 High Number Of Sexual Partners No Information not available 02/04/2020 To Which Gender Do You Self-identify? Female Information not available 02/04/2020 Marital Status Informatio n not available 02/04/2020 What Was The Date Of Your Most Recent Tobacco Screening? 03/20/2025 Information not available 03/20/2025 What Is Your Relationship Status? Information not available 03/09/2021 Seat Belts Used Routinely Yes Information not available 02/04/2020 Are You Sexually Active? Yes [id number] Information not available 05/19/2020 Smoke Alarm In Home Yes Information not available 02/04/2020 How Much Tobacco Do You Smoke? No [id number] Information not available 05/19/2020 General Stress Level Medium Information not available 02/04/2020 Do You Use Sunscreen Routinely? Yes [id number] Information not available 05/19/2020 Have You Recently (within The Last 12 Weeks, Or During A Current ) Traveled To Or Lived In A Zika-affected Area? No Information not available 02/04/2020 How Many Days In The Past Year Have You Consumed 4 Or More Drinks? 0 Information no t available 08/26/2021 Sex: Female Functional Status Question Answer Note LastModified by Organizat ion Details LastModified Time Do you use any illicit or recreational drugs? No Information not available 03/09/2021 Do you or have you ever used any other forms of tobacco or nicotine? No Information not available 03/09/2021 What is your level of alcohol consumption? Occasional Information not available 03/19/2024 Do you or have you ever used smokeless tobacco? Never used smokeless tobacco [id number] Information not available 05/19/2020 Are you currently employed? No Information not available 03/09/2021 What is your occupation? Retired Information not available 03/09/2021 Do you or have you ever used e-cigarettes or vape? Never used electronic cigarettes [id number] Information not available 05/19/2020 What is your exercise level? Moderate Information not available 03/09/2021 Mental Status Question Answer Note LastModified by Organization D etails LastModified Time Do you feel stressed (tense, restless, nervous, or anxious, or unable to sleep at night)? [id number] Information not available 03/09/2021 Family History Relationship Description Onset Age of this Age Resolved Age Notes LastModified by Organization Details LastModified Time Father Problem non hodkin s lympom a [email or web address] Not available 02/04/2020 14:03:57 Father Heart disease [email or web address] Not available 2019 14:04:31 Mother Heart disease mom is 90... [email or web address] Not available 02/04/2020 14:04:31 Mother Hypertensive disorder [email or web address] Not available 2019 14:04:50 Mother Alzheimer's disease [email or web address] Not available 2024 13:31:04 Brother Heart disease rt arteri al dyfunt ion... has defib. [email or web address] Not available 02/04/2020 14:19:49 Brother Problem prosta te cancer [email or web address] Not available 03/19/2024 13:20:38 Medical History Condition Response Anesthesia complications N High Blood Pressure N Candidate for MyRisk panel N Autoimmune Condition N Thyroid Problems N Kidney or Bladder Problems N GI Problems Y Lung Disease N Depression Y Defects or Inherited Disease N History of Ovarian Cancer N Anemia N History of Breast Cancer N DIGNA exposure N BRCA testing in past N Osteopenia N Psychiatric Illness N Anxiety Disorder Y Diabetes N Arthritis N Headaches or Migraines Y Infertility N Asthma Y History of Cancer N Endometriosis N Hepatitis N Heart Disease N Hypertension N Osteoporosis N Gynecological History Statement/Question Response If Post Menopausal, Age at Menopause 52 Age at Menarche 12 Most Recent Mammogram 04/12/2024 Age at First Child 26 Obstetrics History GPAL:G 4 P 3 0 1 3 Type Value Full Term 3 Induced 1 Living 3 Total 4 Immunizations Vaccine Type Date Status Note Provider Nam e and Address Organization Details Recorded Time Influenza, split virus, quadrivalent, preservative 1 completed Nguyen millard [place] - [facility], 03/16/2023 09:04:53 Influenza, split virus, quadrivalent, PF 1 completed Nguyen millard [facility] - [facility], 03/16/2023 09:04:53 varicella 1 completed Nguyen millard [facility] - [facility], 03/16/2023 09:04:53 Influenza, split virus, quadrivalent, preservative 1 completed Nguyen millard [facility] - [facility], 03/16/2023 09:04:53 Influenza, recombinant, quadrivalent, PF 0 completed Nguyen millard [facility], 03/16/2023 09:04:53 zoster recombinant 1 completed Nguyen millard MA - [facility], 03/16/2023 09:04:53 zoster recombinant 1 completed Nguyen millard [facility] - [facility], 03/16/2023 09:04:53 COVID-19, mRNA, LNP-S, PF, 100 mcg/0.5mL dose or 50 mcg/0.25mL dose 2 completed Nguyen millard MA - [facility], 03/16/2023 09:04:53 COVID-19, mRNA, LNP-S, PF, 100 mcg/0.5mL dose or 50 mcg/0.25mL dose 1 completed Nguyen millard MA - [facility], 03/16/2023 09:04:53 COVID-19 vaccine, vector-nr, rS-Ad26, PF, 0.5 mL 1 completed Nguyen millard, [place] - [facility], 03/16/2023 09:04:53 Tdap 9 completed Nguyen millard, [facility] - [facility], 03/16/2023 09:04:53 Tdap 4 completed Nguyen millard MA - [facility], 03/16/2023 09:04:53 Influenza, split virus, trivalent, preservative 3 completed Nguyen millard MA - [facility], 03/16/2023 09:04:53 Influenza, MDCK, quadrivalent, PF 2 completed Brandee millard MA - [facility], 03/19/2024 13:18:05 COVID-19, mRNA, LNP-S, bivalent, PF, 30 mcg/0.3 mL dose 2 completed Brandee millard [facility] - [facility], 03/19/2024 13:18:05 Tdap 4 completed Not Available [facility] 03/20/2025 13:11:47 COVID-19, mRNA, LNP-S, PF, 50 mcg/0.5 mL 4 completed Not Available [facility] 03/20/2025 13:11:47 Influenza, split virus, quadrivalent, PF 3 completed Not Available [facility] 03/20/2025 13:11:47 COVID-19, mRNA, LNP-S, PF, refugio-sucrose, 30 mcg/0.3 mL 3 completed Not Available [facility] 03/20/2025 13:11:47 Influenza, split virus, trivalent, PF 4 completed Not Available [facility] 03/20/2025 13:11:47 Past Encounters Encounter ID Performer Location Encounter Start Date Encounter Closed Date Diagnosis/Indication Diagnosis SNOMED-CT Code Diagnosis ICD10 Code Diagnosis IMO Codes Diagnosis Note [id number] MD SIERRA Babin MD [address] [place], [place] [address] [id number] 02/04/2020 13:50:05 02/04/2020 15:31:07 Specialized medical examination 44758984 Z01.419 Screening mammography 24 208205 Z12.31 Screening for osteoporosis 141154383 Z13.820 Atrophic vaginitis 36862 000 N95.2 [id number] MD SIERRA Babin MD [address] [place] [address] [place] [id number] 02/13/2020 12:58:01 02/13/2020 14:23:12 Menopausal syndrome 201718675 N95.1 [id number] MD SIERRA Babin MD [address] [place] [address] [place] [id number] 03/03/2020 12:50:51 03/03/2020 14:06:43 Osteopenia 733113190 M85.851 Suspected COVID-19 36026 4004 Z03.818 [id number] MD SIERRA Babin MD [address] [place] [address] [place] [id number] 03/09/2021 11:01:05 03/09/2021 11:39:16 Specialized medical examination 32993159 Z01.419 Screening mammography 24 594573 Z12.31 Menopausal syndrome 1237 29437 N95.1 [id number] MD SIERRA Babin MD [address] [place] [address] [place] [id number] 08/26/2021 13:05:03 08/26/2021 14:11:14 Atypical squamous cells of undetermined significance on cervical Papanicolaou smear 688066639 R87.610 History of dysplasia of cervix 882855324 Z87.410 [id number] MD SIERRA Babin MD [address] [place] [address] [place] [id number] 03/15/2022 13:47:47 03/15/2022 14:50:10 Specialized medical examination 16357035 Z01.419 Screening mammography 24 331372 Z12.31 Menopausal syndrome 1237 39316 N95.1 [id number] MD SIERRA Babin MD [address] [facility] [place] [address] 03/16/2023 09:01:01 03/16/2023 11:16:30 Specialized medical examination 87626129 Z01.419 Screening for malignant neoplasm of rectum 674501880 Z12.12 Screening mammography 24 413159 Z12.31 Menopausal syndrome 1237 94020 N95.1 [id number] MD SIERRA Babin MD [address] [facility] [place] [address] 03/19/2024 13:10:09 03/19/2024 14:43:37 Menopausal syndrome 425912051 N95.1 Specialize d medical examination 19803214 Z01.419 Screening for malignant neoplasm of rectum 246000506 Z12.12 Screening mammography 24 852755 Z12.31 [id number] MD SIERRA Babin MD [address] [facility] [place] [address] 03/20/2025 13:10:15 03/20/2025 15:31:48 Menopausal syndrome 424020994 N95.1 Specialize d medical examination 03897683 Z01.419 Screening for malignant neoplasm of rectum 917915003 Z12.12 Screening mammography 24 570645 Z12.31 History of dysplasia of cervix 435927335 Z87.410 Health Concerns Section Related Observation LastModified by Organization Detai ls LastModified Time None Recorded Concern Status LastModified by Organization Details LastModified Time None Recorded Advance Directives Directive Y: Payers Insurance Date Sequence Insurance Name Policy Number Policy Luz Covered Member ID Luz Member ID Guarantor Name 03/17/2025 1 LIDYA [id number] Nakul Bernard [id number] Olimpia Bernard Notes Date Note Type Note Provider Name and Address Organization Details Recorded Time 08/26/2021 text/html She is here for repeat pap after pap with ASCUS with negtive HPV. She notes tht in her past history she had mild dysplasia. Sierra Diehl MD [address], [place], [address], [employer] [facility], 08/26/2021 13:55:39 03/15/2022 text/html She is here for annual exam, doing well on HRT and elects to continue, no bleeding. Note from 2020: She is here for annual exam, started HRT last year and feels oh so much better. She still gets night sweats when she drinks red wine, especially if more than one glass. Sierra Diehl MD [address], [place], [address], [employer] [facility], 03/15/2022 14:35:29 03/16/2023 text/html She is here for annual exam, doing well on HRT and elects to continue, no bleeding. Sierra Diehl MD [address], [place], [address], [employer] [facility], 03/16/2023 09:33:45 03/19/2024 text/html She is here for annual, doing well on her HRT. Note from 2022: She is here for annual exam, doing well on HRT and elects to continue, no bleeding.She had some questions about possibly weaning down off HRT, after discussion she is aware how to do this if she wishes.On exam:there is a 3 mm area of significant tenderness on the right areolae at the edge at the 11 o'clock. Nothing visible.She is advised to keep an eye on this, and if it persists then let me know and I will refer her to have it assessed at a breast surgery center. She had never noticed it before so is not certain how long it has been there. Mammo is next month. Sierra Diehl MD [address], [place], [address], [employer] [facility], 03/19/2024 13:41:47 03/20/2025 text/html She is here for annual, doing well on her HRT. Personal history of cervical dysplasia, needs annual pap. Sierra Diehl MD [address] [facility],[address], [place], [address], [place] [facility], 03/20/2025 13:50:02 OBGyn Episode No OBEpisode recorded.
== END 2025-06-02 12:55 | disposition home or self-care (01) ==
LOC: HO.MAMMO 12:54
PROVIDERS: PCP Physician Assistant; Visit Provider Obstetrics & Gynecology
DX: Z12.31 Encounter for screening mammogram for malignant neoplasm of breast (principal)
CPT/HCPCS: 77063; 77067

== ENCOUNTER → 2025-06-02 13:00 | Outpatient (BNV) | payer OTHER, SELFPAY | PROVIDERS: PCP Physician Assistant; Visit Provider Radiology Body Imaging | DX: Z12.31 Encounter for screening mammogram for malignant neoplasm of breast (principal) | CPT/HCPCS: 77063; 77067 ==

== ENCOUNTER 2025-06-10 12:48 | Outpatient (REF) | payer OTHER, SELFPAY ==
[2025-06-10 14:48] LABS: Folate 8.8 ng/mL (> or = 4.0); Vitamin B12 540 pg/mL (200-900)
--- OUTSIDE RECORDS SUMMARY | 2025-06-10 16:25 | XMS_ITS | Encounter Summary ---
Author Organization [facility] Address [address] [place] [address] Phone Care Team Providers Care Transaction Processor Name Role Phone Tello Tapia Primary Care Provider + Encounter Details Date Type Department Care Team (Late st Contact Info) Description 09/26/2022 Procedure Pass [facility], [address] [address] Social History Tobacco Use Types Packs/Day Years [...] on filedocumented in this encounter Care Teams Transaction Processor Relationship Specialty Start Date End Date Tello Tapia PA [address] [place] [phone] PCP - General Physician Insurance Instructor 08/25/22 documented as of this encounter Additional Source Comments The information contained in this document represents components of the legal health record. It is not the complete legal health record.[facility]
--- OUTSIDE RECORDS SUMMARY | 2025-06-10 16:26 | XMS_ITS | Encounter Summary ---
Author Organization [facility] Address [address] [place] [address] Phone Care Team Providers Care Creasing Machine Operator Name Role Phone Tello Tapia Primary Care Provider + Encounter Details Date Type Department Care Team (Late st Contact Info) Description 08/30/2022 Transcribe Orders Virtual Department [address] [place] [address] Anastasiya Pineda PA [address] [place] [address] [email or web address] Abdominal pain, unspecified abdominal location (Primary Dx); Nausea Social History Tobacco Use Types Packs/Day Years Used Date Smoking Tobacco: Never Assessed Comments Unknown Sex and Gender Information Value Date Recorded Sex Assigned at Not on file Legal Sex Female 10:35 AM EST Gender Identity Not on file Sexual Orientation Not on file documented as of this encounter Plan of Treatment Not on file documented as of this encounter Results * US ABDOMEN COMPLETE (ADULT) (09/14/2022 11:26 AM EST) Anatomical Region Laterality Modality Abdomen Ultrasound 09/14/2022 5:3 6 PM EST Impressions 09/14/2022 5:38 PM EST Ultrasound shows no finding to explain abdominal pain. Narrative 09/14/2022 5:38 PM EST US ABDOMEN COMPLETE (ADULT) TECHNIQUE: Abdominal Ultrasound Complete. COMPARISON: FINDINGS: Liver: Normal. No focal lesions. Main Portal Vein: Patent with normal direction of flow. Gallbladder: Surgically absent. Biliary: Normal. No intrahepatic or extrahepatic biliary ductal dilatation. The common bile duct measures 11 mm. Pancreas: Incompletely visualized. Spleen: Normal. No splenomegaly. Kidneys: Normal. No stones or hydronephrosis. Aorta: Normal, where visualized sonographically. IVC: Normal intrahepatic segment. Procedure Note Kapil Shea MD - 09/14/2022 US ABDOMEN COMPLETE (ADULT) TECHNIQUE: Abdominal Ultrasound Complete. COMPARISON: FINDINGS: Liver: Normal. No focal lesions. Main Portal Vein: Patent with normal direction of flow. Gallbladder: Surgically absent. Biliary: Normal. No intrahepatic or extrahepatic biliary ductaldilatation. The common bile duct measures 11 mm. Pancreas: Incompletely visualized. Spleen: Normal. No splenomegaly. Kidneys: Normal. No stones or hydronephrosis. Aorta: Normal, where visualized sonographically. IVC: Normal intrahepatic segment. IMPRESSION: Ultrasound shows no finding to explain abdominal pain. us Anastasiya EPSTEIN IMG US ABDOMEN Final Re sult documented in this encounter Visit Diagnoses Diagnosis Abdominal pain, unspecified abdominal location- Primary Nausea Nausea alone Abdominal pain, unspecified abdominal location Nausea Nausea alone documented in this encounter Care Teams Creasing Machine Operator Relationship Specialty Start Date End Date Tello Tapia PA [address] [place] [phone] PCP - General Physician Animal Treatment Investigator 08/25/22 documented as of this encounter Additional Source Comments The information contained in this document represents components of the legal health record. It is not the complete legal health record.[facility]
--- OUTSIDE RECORDS SUMMARY | 2025-06-10 16:26 | XMS_ITS | Continuity of Care Document ---
Author Organization [place] - [facility],, SIERRA DIEHL MD Address [address] [address] Care Team Providers Care Airport Traffic Controller Name Role Phone ANATOLIY ABRAHAM Primary Care Provider [phone] Assessment No assessment recorded. Plan of Treatment Reminders Order Date Submit Date Provider Last Modified By Organization Details Last Modified Time Details Appointments ANNUAL EXAM 2025 01:20P M Sierra Diehl MD Not available Not available Not available Lab cytology report, thin prep, smear or scraping, cervical or vaginal 2024 025 [place] [facility] (Centralized Electronic Ordering - All Locations), Patient Can Go To The Location Of Their Choice, [address] 03/21/2025 18:16:09 Referral None recorded. Procedures None recorded. Surgeries None recorded. Imaging MAMMO, screening , digital, bilateral - Breast Aspiratio n and/or Biopsy if needed 2024 025 [facility] ([facility]), [address] [place] [address] [place], [address], 06/04/2025 17:00:30 Medication Orders estradiol 1 mg tablet 2024 025 [facility], [address] [place] [address], [address], 03/20/2025 13:49:39 progester one micronize d 200 mg capsule 2024 025 [facility], [facility] [place], [address], 03/20/2025 13:49:39 Patient TargetsNo targets recorded. Patient Instructions Encounter Date Encounter Id Patient Instructions Last Modified By Organization Details Last Modified Time 03/20/2025 [id number] learning about healthy weight percy Not available 03/20/2025 13:49:36 She is here [...] of HRT, or at any time postmenopausally. percy Not available 03/20/2025 13:40:05 Reason for Referral None Reported. Results Created Date Observation Date Name Description Value Unit Range Abnormal Flag Note LastModifiedBy Organization Detail LastModifiedTime 03/20/2003/21/2025 IGP, RFX APTIM A HPV ASCU diagnosis: Commen t NEGAT HORTENCIA FOR INTRA EPITH ELIAL VARUN Estevez OR KALINA CHAVIS . Not Available [facility] ([facility]) [address] [facility], [place], [address], 03/21/2025 18:16:09 03/20/2003/21/2025 IGP, RFX APTIM A HPV ASCU specimen adequacy: Commen t Satis facto ry for evalu ation . No endoc ervic al compo nent is ident ified . Not Available [facility] ([facility]) [address] [facility], [place], [address], 03/21/2025 18:16:09 03/20/20 25 03/21/2025 IGP, RFX APTIM A HPV ASCU clinician provided ICD10: Sophia stanford Z01.4 19 Not Available [facility] ([facility]) [address] [place], [address], 03/21/2025 18:16:03/20/20 25 03/21/2025 IGP, RFX APTIM A HPV ASCU performed by: Sophia Carmona , Cytol ogist (ASCP ) Not Available [facility] ([facility]) [address] [place], [address], 03/21/2025 18:16:09 03/20/2003/21/2025 IGP, RFX APTIM A HPV ASCU . . Not Available [facility] ([facility]) [address] [place], [address], 03/21/2025 18:16:09 03/20/2003/21/2025 IGP, RFX APTIM A HPV ASCU note: Sophia stanford The Pap smear is a scree sagar test elisa kevin to aid in the detec tion of [...] Not Available [facility] ([facility]) [address] [place], [address], 03/21/2025 18:16:03/20/2003/21/2025 IGP, RFX APTIM A HPV ASCU test methodology: Sophia stanford This liqui d based ThinP rep(R ) pap test was scree herberth with the use of an image guide akua syststef m. Not Available [facility] ([facility]) [address] [facility], [place], [address], 03/21/2025 18:16:09 03/20/20 25 03/21/2025 IGP, RFX APTIM A HPV ASCU . Commen t The HPV DNA refle x crite fidel were not met with this speci men resul t there fore, no HPV testi ng was perfo rmed. Not Available [facility] ([facility]) [address] [facility], [place], [address], 03/21/2025 18:16:09 06/04/20 25 06/02/2025 MAMMO , scree sagar, digit al, bilat eral No observ ation record ed. [email or web address] [facility] [address] [place], [address], 06/05/2025 07:44:30 Result Notes None recorded. Problems Name Problem SNOMED Code Status Onset Date Resolution Date Notes Provider Name and Address Organization Details Recorded Time Atrophic vaginitis 92563101 Active 2019 Not Available [facility] 1 10:08:30 Menopausal syndrome 471797258 Active 2019 Not Available [facility] 1 10:08:30 Osteopenia 301004467 Active 2019 Not Available [facility] 1 10:08:30 Suspected COVID-19 008328014 Active 2019 Not Available [facility] 1 10:08:30 Suspected COVID-19 580516918 Active 2019 Not Available [facility] 1 10:08:30 History of dysplasia of cervix 576969894 Active 2021 Sierra Diehl MD [address] [facility] [address], [place], [address] , [place] - [facility], 2 13:34:02 Problem Notes None recorded. Procedures Surgical History Date Name Laterality Status Provider Name and Address Organization Details Recorded Time 04/12/20 24 Most Recent Mammogram completed Brandee Hernandez [place] - [facility], 03/20/2025 13:31:52 10/01/19 00 cholecystectomy completed Brandee Hernandez [place] - [facility], 02/04/2020 14:13:26 04/03/19 87 delivery completed Brandee Hernandez [place] - [facility], 02/04/2020 14:12:58 01/19/19 83 Nipple/areola reconstruction completed Brandee Hernandez [place] - [facility], 02/04/2020 14:14:01 procedure on ankle completed Roberto Marin [place] - [place] [facility], 03/16/2023 09:07:05 Imaging Results None recorded. Procedure Notes None recorded. Medical Equipment None Reported. Allergies Allergen ID Allergen Name Allergen Category Reaction Reaction Severity Criticality Documentation Date Start Date Code Code System Note Provider Name and Address Organization Details Recorded Time 25163 Reglan medicatio n confusion Not available Not available 02/04/2020 9230 RxNorm Brandee millard [place] - [place] [facility], 0 14:01:28 Medications Name Sig Start Date [...] Updated DateTime 03/20/2025 162.56 cm 30.2 kg/m2 26975.26 g 78 /min 125/77 mm[Hg] Brandee David [place] - [facility], 03/20/2025 13:27:02 Social History Question Answer Notes LastModified by Organizat ion Details LastModified Time Tobacco Smoking Status Never Smoker Not Available [facility] 05/19/2020 03:19:42 Do You Have An Advance Directive? Yes [id number] Information not available 05/19/2020 How Many Years Have You Consumed Alcohol? 39 Information not available 08/26/2021 What Is Your Level Of Caffeine Consumption? Occasional [id number] Information not available 05/19/2020 How Much Tobacco Do You Chew? None [id number] Information not available 05/19/2020 In The 14 Days Before Symptom Onset, Have You Had Close Contact With A Laboratory-confir med COVID-19 While That Case Was Ill? No [id number] Information not available 05/19/2020 If Patient Spent Time In [facility] - Does The Patient Live In [facility]? No Information not available 02/04/2020 In The 14 Days Before Symptom Onset, Have You Had Close Contact With A Person Who Is Under Investigation For COVID-19 While That Person Was Ill? No [id number] Information not available 05/19/2020 In The 14 Days Before Symptom Onset, Did The Patient Spend Time In [facility]? No Information not available 02/04/2020 Have You Been To An Area Known To Be High Risk For COVID-19? No [id number] Information not available 05/19/2020 What Type Of Diet Are You Following? REGULAR [id number] Information not available 05/19/2020 Which Illicit Or Recreational Drugs Have You Used? No [id number] Information not available 05/19/2020 Do You Reside In Or Have You Traveled To An Area Where Ebola Virus Transmission Is Active? No [id number] Information not available 05/19/2020 Education 4 Year College Informatio n not available 02/04/2020 What Is The Highest Grade Or Level Of School You Have Completed Or The Highest Degree You Have Received? [id number] Information not available 03/09/2021 How Many Days In The Past Year Have You Had A Heavy Drinking Consumption (4+ Female, 5+ Male)? 0 Information no t available 02/04/2020 Are There Any Guns Present In Your Home? No [id number] Information not available 05/19/2020 High Number Of [...] available 02/04/2020 Are You Sexually Active? Yes [id number] Information not available 05/19/2020 Smoke Alarm In Home Yes Information not available 02/04/2020 How Much Tobacco Do You Smoke? No [id number] Information not available 05/19/2020 General Stress Level Medium Information not available 02/04/2020 Do You Use Sunscreen Routinely? Yes [id number] Information not available 05/19/2020 Have You Recently [...] used smokeless tobacco? Never used smokeless tobacco [id number] Information not available 05/19/2020 Are you currently employed? No Information not available 03/09/2021 What is your occupation? Retired Information not available 03/09/2021 Do you or have you ever used e-cigarettes or vape? Never used electronic cigarettes [id number] Information not available 05/19/2020 What is your exercise level? Moderate Information not available 03/09/2021 Mental Status Question Answer Note LastModified by Organization D etails LastModified Time Do you feel stressed (tense, restless, nervous, or anxious, or unable to sleep at night)? [id number] Information not available 03/09/2021 Family History Relationship [...] Influenza, split virus, quadrivalent, preservative 1 completed [place] in [facility], 03/16/2023 09:04:53 Influenza, split virus, quadrivalent, PF 1 completed [place] in [facility], 03/16/2023 09:04:53 varicella 1 completed [place] in [facility], 03/16/2023 09:04:53 Influenza, split virus, quadrivalent, preservative 1 completed [place] in [facility], 03/16/2023 09:04:53 Influenza, recombinant, quadrivalent, PF 0 completed [place] in [facility], 03/16/2023 09:04:53 zoster recombinant 1 completed [place] in [facility], 03/16/2023 09:04:53 zoster recombinant 1 completed [place] in [facility], 03/16/2023 09:04:53 COVID-19, mRNA, LNP-S, PF, 100 mcg/0.5mL dose or 50 mcg/0.25mL dose 2 completed [place] in [facility], 03/16/2023 09:04:53 COVID-19, mRNA, LNP-S, PF, 100 mcg/0.5mL dose or 50 mcg/0.25mL dose 1 completed [place] in [facility], 03/16/2023 09:04:53 COVID-19 vaccine, vector-nr, rS-Ad26, PF, 0.5 mL 1 completed [place] in [facility], 03/16/2023 09:04:53 Tdap 9 completed Nguyen Kumari null, [place] - [facility], 03/16/2023 09:04:53 Tdap 4 completed Nguyen Kumari null, [place] - [facility], 03/16/2023 09:04:53 Influenza, split virus, trivalent, preservative 3 completed Nguyen Kumari null, [place] - [facility], 03/16/2023 09:04:53 Influenza, MDCK, quadrivalent, PF 2 completed Brandee Linowor null, [place] - [facility], 03/19/2024 13:18:05 COVID-19, mRNA, LNP-S, bivalent, PF, 30 mcg/0.3 mL dose 2 completed Brandee Linowor null, [place] - [facility], 03/19/2024 13:18:05 Tdap 4 completed Not Available [facility] 03/20/2025 13:11:47 COVID-19, mRNA, LNP-S, PF, 50 mcg/0.5 mL 4 completed Not Available [facility] 03/20/2025 13:11:47 Influenza, split virus, quadrivalent, PF 3 completed Not Available [facility] 03/20/2025 13:11:47 COVID-19, mRNA, LNP-S, PF, refugio-sucrose, 30 mcg/0.3 mL 3 completed Not Available [facility] 03/20/2025 13:11:47 Influenza, split virus, trivalent, PF 4 completed Not Available [facility] 03/20/2025 13:11:47 Past Encounters Encounter ID Performer Location Encounter Start Date Encounter Closed Date Diagnosis/Indication Diagnosis SNOMED-CT Code Diagnosis ICD10 Code Diagnosis IMO Codes Diagnosis Note [id number] MD SIERRA Babin MD [address] [facility] [address] [place] [address] 03/20/2025 13:10:15 03/20/2025 15:31:48 Menopausal syndrome 589569973 N95.1 Specialize d medical examination 72542088 Z01.419 Screening for malignant neoplasm of rectum 196769836 Z12.12 Screening mammography 24 458805 Z12.31 History of dysplasia of cervix 800438666 Z87.410 Health Concerns Section Related Observation LastModified by Organization Detai ls LastModified Time None Recorded Concern Status LastModified by Organization Details LastModified Time None Recorded Payers Encounter Date Sequence Insurance Name Policy Number Policy Luz Covered Member ID Luz Member ID Guarantor Name 03/20/2025 1 [id number] Nakul Bernard [id number] Porfirio Bernard Notes Date Note Type Note Provider Name and Address Organization Details Recorded Time 03/20/2025 text/html She is here for annual, doing well on her HRT. Personal history of cervical dysplasia, needs annual pap. Sierra Diehl MD [address] [place] [address],[address], [place], [address], [place] - [facility], 03/20/2025 13:50:02 OBGyn Episode No OBEpisode recorded.
--- OUTSIDE RECORDS SUMMARY | 2025-06-10 16:26 | XMS_ITS | Encounter Summary ---
Author Organization [facility] Address [address] [place] [address] Phone Care Team Providers Care Straight Pin Making Machine Operator Name Role Phone Tello Tapia Primary Care Provider + Reason for Referral * MRI/CAT Scan - Closed Specialty Diagnoses / Procedures Referred By Contac t Referred To Contact Radiology Diagnoses Epigastric abdominal pain Nausea Procedures MRI Cholangiopancreatography (MRCP) CHG MRI, ABDOMEN, COMBO Anastasiya Pineda PA Phone: tel: fax: [email or web address] Referral ID Status Reason Start Date Expiration Date Visits Re quested Visits Authorized [id number] Closed 08/25/2022 02/21/2023 1 1 Encounter Details Date Type Department Care Team (Late st Contact Info) Description 09/26/2022 Transcribe Orders Virtual Department [address] [place] [address] Anastasiya Pineda PA [address] [place] [address] [email or web address] Epigastric abdominal pain (Primary Dx); Nausea Social History Tobacco Use [...] documented as of this encounter Results * MRI CHOLANGIOPANCREATOGRAPHY (MRCP) WITHOUT CONTRAST (10/21/2022 10:21 AM EDT) Anatomical Region Laterality Modality Pancreas, Biliary Magnetic Reson ance 10/21/2022 3:06 PM EDT Impressions 10/21/2022 3:23 PM EDT Similar, mild dilatation of the extrahepatic common bile duct measuring up to 1.2 cm which may represent reservoir effect in the setting of prior cholecystectomy. No focal filling defects demonstrated. Narrative 10/21/2022 3:23 PM EDT MRI CHOLANGIOPANCREATOGRAPHY (MRCP) WITHOUT CONTRAST History: Right upper quadrant abdominal pain, nausea, history of pancreatitis TECHNIQUE: Multiplanar MR imaging of the abdomen was performed using T1, T2, fat saturated, and diffusion weighted techniques. 2D and 3D MRCP sequences were performed. No intravenous contrast was administered. COMPARISON: Abdominal sonography 09/14/2022 ABSENCE OF INTRAVENOUS CONTRAST DECREASES SENSITIVITY FOR DETECTION OF FOCAL LESIONS AND VASCULAR PATHOLOGY. FINDINGS: Lower Chest: No effusions. Liver: Normal signal intensity. No focal lesion demonstrated within limitations of noncontrast examination. Biliary: The gallbladder is surgically absent. There is dilatation of the extrahepatic common bile duct measuring up to 1.2 cm. There is smooth tapering to the level of the ampulla. No focal filling defect demonstrated. Residual cystic duct is minimally prominent. Spleen: No splenomegaly or focal lesion. Pancreas: Preserved intrinsic T1 hyperintensity of the pancreatic parenchyma. Classic pancreatic ductal anatomy. No focal lesion demonstrated within limitations of noncontrast examination. Adrenal Glands: No nodules. Kidneys/Ureters: Punctate likely T2 hyperintense likely cyst at the upper pole the right kidney. No solid masses or hydronephrosis. Bowel: No dilatation or wall thickening. Peritoneum/Retroperitoneum: No masses or fluid. Lymph Nodes: No lymphadenopathy. Vessels: No abdominal aortic aneurysm. Bones/Soft Tissues: No focal marrow replacing lesions. Procedure Note Shraddha Travis MD - 10/21/2022 MRI CHOLANGIOPANCREATOGRAPHY (MRCP) WITHOUT CONTRAST History: Right upper quadrant abdominal pain, nausea, history ofpancreatitis TECHNIQUE: Multiplanar MR imaging of the abdomen was performed using T1,T2, fat saturated, and diffusion weighted techniques. 2D and 3D MRCPsequences were performed. No intravenous contrast was administered. COMPARISON: Abdominal sonography 09/14/2022 ABSENCE OF INTRAVENOUS CONTRAST DECREASES SENSITIVITY FOR DETECTION OFFOCAL LESIONS AND VASCULAR PATHOLOGY. FINDINGS: Lower Chest: No effusions. Liver: Normal signal intensity. No focal lesion demonstrated withinlimitations of noncontrast examination. Biliary: The gallbladder is surgically absent. There is dilatation of theextrahepatic common bile duct measuring up to 1.2 cm. There is smoothtapering to the level of the ampulla. No focal filling defectdemonstrated. Residual cystic duct is minimally prominent. Spleen: No splenomegaly or focal lesion. Pancreas: Preserved intrinsic T1 hyperintensity of the pancreaticparenchyma. Classic pancreatic ductal anatomy. No focal lesiondemonstrated within limitations of noncontrast examination. Adrenal Glands: No nodules. Kidneys/Ureters: Punctate likely T2 hyperintense likely cyst at the upperpole the right kidney. No solid masses or hydronephrosis. Bowel: No dilatation or wall thickening. Peritoneum/Retroperitoneum: No masses or fluid. Lymph Nodes: No lymphadenopathy. Vessels: No abdominal aortic aneurysm. Bones/Soft Tissues: No focal marrow replacing lesions. IMPRESSION: Similar, mild dilatation of the extrahepatic common bile duct measuring upto 1.2 cm which may represent reservoir effect in the setting of priorcholecystectomy. No focal filling defects demonstrated. Anastasiya EPSTEIN IMG MR ABDOMEN Final Re sult documented in this encounter Visit Diagnoses Diagnosis Epigastric abdominal pain- Primary Abdominal pain, epigastric Nausea Nausea alone Epigastric abdominal pain Abdominal pain, epigastric Nausea Nausea alone documented in this encounter Care Teams Straight Pin Making Machine Operator Relationship Specialty Start Date End Date Tello Tapia PA [address] [place] [address] PCP - General Physician Armature Varnisher 08/25/22 documented as of this encounter Additional Source Comments The information contained in this document represents components of the legal health record. It is not the complete legal health record.[facility]
--- OUTSIDE RECORDS SUMMARY | 2025-06-10 16:26 | XMS_ITS | Data Portability ---
Author Organization [place] - [facility],, SIERRA DIEHL MD Address [address] [address] Care Team Providers Care Hat Copyist Name Role Phone ANATOLIY ABRAHAM Primary Care [...] Go To The Location Of Their Choice, [id number] 03/21/2025 18:16:09 cytology report, thin prep, smear or scraping , cervical or vaginal 2023 024 [facility] (Centralized Electronic Ordering - All Locations), Patient Can Go To The Location Of Their Choice, 03/25/2024 12:05:43 pap test, thinprep , cervical 2022 023 [email or web address] [facility] (Centralized Electronic Ordering - All Locations), Patient Can Go To The Location Of Their Choice, 03/30/2023 07:42:11 pap test, thinprep , cervical 2021 022 [facility], Cytopathology Service, [address] [place] [address], [address], 03/29/2022 07:40:17 pap, LB 2021 022 [facility], Cytopathology Service, [address] [facility], [place], [address], 09/15/2021 10:15:48 Referral None recorded . Procedures None recorded . Surgeries None recorded . Imaging MAMMO, screenin g, digital, bilatera l - Breast Aspirati on and/or Biopsy if needed 2024 025 [facility] (Mammo), [address] [facility] [place], [address], 06/04/2025 17:00:30 MAMMO, screenin g, digital, bilatera l - Breast Aspirati on and/or Biopsy if needed 2023 024 [facility] (Mammo), [address] [facility] [place], [address], 06/11/2024 11:02:33 MAMMO, screenin g, digital, bilatera l - Breast Aspirati on and/or Biopsy if needed 2022 023 [facility] [address] [facility] [place], [address], 03/12/2024 07:19:14 MAMMO, screenin g, digital, bilatera l 2021 022 [facility] (Mammo), [address] [facility] [place], [address], 04/14/2022 08:08:48 Medication Orders estradio l 1 mg tablet 2024 025 [facility], [facility], [place], [address], 03/20/2025 13:49:39 progeste shanthi microniz ed 200 mg capsule 2024 025 [facility], [address] [place], [address], 03/20/2025 13:49:39 estradio l 1 mg tablet 2023 024 [facility], [address] [place] [address], [address], 03/19/2024 13:31:55 progeste shanthi microniz ed 200 mg capsule 2023 024 [facility], [address] [place] [address], [address], 03/19/2024 13:31:53 progeste shanthi microniz ed 200 mg capsule 2022 023 [facility], [address] [place] [address], [address], 03/16/2023 09:32:48 estradio l 1 mg tablet 2022 023 [facility], [address] [place] [address], [address], 03/16/2023 09:32:47 progeste shanthi microniz ed 200 mg capsule 2021 022 [facility], [address] [place] [address], [address], 03/15/2022 14:34:44 estradio l 1 mg tablet 2021 022 [facility], [address] [place] [address], [address], 03/15/2022 14:34:44 Patient TargetsNo targets recorded. Patient Instructions Encounter Date Encounter Id Patient Instructions Last Modified By Organization Details Last Modified Time 08/26/2021 [id number] abnormal Pap kassandra t: care instructions [email or web address] Not available 08/26/2021 13:34:55 She is here for repeat pap after pap with ASCUS with negtive HPV. She notes tht in her past history she had mild dysplasia. Pap is taken. She has questions about HPV related diseae, pap smears, etc. All answered to her satisfaction. Not available 08/26/2021 13:55:19 03/15/2022 [id number] learning about healthy weight Not available 03/15/2022 [...] time postmenopausally. Not available 03/15/2022 14:35:10 03/16/2023 [id number] learning about healthy weight [email or web address] Not available 03/16/2023 09:29:03 She is here [...] time postmenopausally. Not available 03/16/2023 09:32:16 03/19/2024 [id number] learning about healthy weight [email or web address] Not available 03/19/2024 13:31:51 She is here [...] time postmenopausally. Not available 03/19/2024 13:41:17 03/20/2025 [id number] learning about healthy weight Not available 03/20/2025 [...] Detail LastModifiedTime 08/26/19 22 08/26/2021 PAP1C ASE [id number] ThinP rep Pap, Image d: NEGAT HORTENCIA FOR SQUAM OUS INTRA EPITH ELIAL LESIO N AND MALIG PARTHA . React hortencia cellu loe hairston es. Note: The Pap test is a [...] , Patho logis t (Case elect alaina henriquez ana luisa d 09 14 2021) ADEQU ACY: Satis facto ry Endoc ervic al/tr ansfo rmati on zone compo nent absen t. SOURC E: ThinP rep Pap HPV IF ASCUS , Cervi jesu, Image d CLINI JESU INFOR MATIO N: HPV If Diagn osis of ASCUS . 3 month repea t pap, lps ascus neg hpv. [r87. 610]. Not Available [facility], Cytopathology Service [address] [facility], [place], [address], 09/15/2021 10:15:48 03/15/20 22 03/15/2022 PAP1C ASE [id number] ThinP rep Pap, Image d: NEGAT HORTENCIA FOR SQUAM OUS INTRA EPITH ELIAL LESIO N AND MALIG PARTHA . Infla mmato ry hairston es prese nt. David davis , [place]( CP) (Case elect alaina allryan ana luisa d 03 22 2022) ADEQU ACY: Satis facto ry Endoc ervic al/tr ansfo rmati on zone compo nent absen t. SOURC E: ThinP rep Pap HPV IF Ascus : Refle x 16 and 18, Cervi jesu, Image d CLINI JESU INFOR MATIO N: HPV If Diagn osis of ASCUS . Menop ause, lps neg, [Z01. 419] Not Available [facility], Cytopathology Service [address] [facility], [place], [address], 03/23/2022 12:56:29 03/16/20 23 03/16/2023 [facility] CYTOL OGY results Patistef nt Name: OLIMPIA BLANC nt : 1960 (Age: 62) Lab Acces sirisha #: [id number] Colle ction Date: 2022 Acces sirisha Date: 023 Sign Out Date: 023 Tissu e Sourc e: 1: THINP REP BULK PICKER PAP TEST, CERVI JESU: Final Diagn osis: [...] ng Syste m with jhonny lopez rescr maribethnijared g or matt w. Perfo [facility] at [facility] ate Refer ence Labor atory depar tment of Cytol ogy, [address] [place] o[place] Clini jesu Histo ry (othe r): Z01.4 19, ROUTI NE SCREE N, LPS 03/15 NEG Phone #: [phone], On-Ca ll Patho logis t: [id number] Not Available [facility] (Centralized Electronic Ordering - All Locations) Patient Can Go To The Location Of Their Choice, [address] 03/24/2023 14:12:00 03/19/20 24 03/25/2024 IGP, RFX APTIM A HPV ASCU diagnosis: Commen t NEGAT HORTENCIA FOR INTRA EPITH ELIAL LESIO N OR MALIG PARTHA . CELLU LAR HAIRSTON ES ASSOC IATED WITH ATROP HY ARE PRESE NT. THIS SPECI MEN WAS RESCR EENED PART OF OUR QUALI TY CONTR OL PROGR AM. Not Available [facility] ([facility]) [address] [place], [address], 03/25/2024 12:05:43 03/19/20 24 03/25/2024 IGP, RFX APTIM A HPV ASCU specimen adequacy: Sophia stanford Satis lily uribe for evalu ation . Endoc ervic al compo nent may not be disti nguis hed in cases of atrop hy. Areas of parti ally obscu ring infla mmato ry exuda te are prese nt. Not Available [facility] ([facility]) [address] [place], [address], 03/25/2024 12:05:43 03/19/20 24 03/25/2024 IGP, RFX APTIM A HPV ASCU clinician provided ICD10: Sophia stanford Z01.4 19 Not Available [facility] ([facility]) [address] [place], [address], 03/25/2024 12:05:43 03/19/20 24 03/25/2024 IGP, RFX APTIM A HPV ASCU performed by: Sophia Matos , Cytot echno logis t (ASCP ) Not Available [facility] ([facility]) [address] [place], [address], 03/25/2024 12:05:43 03/19/20 24 03/25/2024 IGP, RFX APTIM A HPV ASCU QC reviewed by: Sophia Carmona , Cytot echno logis t (ASCP ) Not Available [facility] ([facility]) [address] [place], [address], 03/25/2024 12:05:43 03/19/20 24 03/25/2024 IGP, RFX APTIM A HPV ASCU . . Not Available [facility] ([facility]) [address] [place], [address], 03/25/2024 12:05:43 03/19/20 24 03/25/2024 IGP, RFX [...] ts do occur . Not Available [facility] ([facility]) [address] [place], [address], 03/25/2024 12:05:43 03/19/20 24 03/25/2024 IGP, RFX APTIM A HPV ASCU test methodology: Commen t This liqui d based ThinP rep(R ) pap test was scree herberth with the use of an image guide d syste m. Not Available [facility] ([facility]) [address] [place], [address], 03/25/2024 12:05:43 03/19/20 24 03/25/2024 IGP, RFX APTIM A HPV ASCU . Commen t The HPV DNA refle x crite fidel were not met with this speci men resul t there fore, no HPV testi ng was perfo rmed. Not Available [facility] ([facility]) [address] [place], [address], 03/25/2024 12:05:43 03/20/20 25 03/21/2025 IGP, RFX APTIM A HPV ASCU diagnosis: Commen t NEGAT HORTENCIA FOR INTRA EPITH ELIAL LESIO N OR MALIG PARTHA . Not Available [facility] ([facility]) [address] [place], [address], 03/21/2025 18:16:09 03/20/20 25 03/21/2025 IGP, RFX APTIM A HPV ASCU specimen adequacy: Sophia stanford Satis facto ry for evalu ation . No endoc ervic al compo nent is ident ified . Not Available [facility] ([facility]) [address] [place], [address], 03/21/2025 18:16:09 03/20/20 25 03/21/2025 IGP, RFX APTIM A HPV ASCU clinician provided ICD10: Sophia stanford Z01.4 19 Not Available [facility] ([facility]) [address] [place], [address], 03/21/2025 18:16:09 03/20/20 25 03/21/2025 IGP, RFX APTIM A HPV ASCU performed by: Sophia Carmona , Cytol ogist (ASCP ) Not Available [facility] ([facility]) [address] [place], [address], 03/21/2025 18:16:09 03/20/20 25 03/21/2025 IGP, RFX APTIM A HPV ASCU . . Not Available [facility] ([facility]) [address] [place], [address], 03/21/2025 18:16:09 03/20/20 25 03/21/2025 IGP, RFX [...] ts do occur . Not Available [facility] ([facility]) [address] [facility], [place], [address], 03/21/2025 18:16:09 03/20/20 25 03/21/2025 IGP, RFX APTIM A HPV ASCU test methodology: Commen t This liqui d based ThinP rep(R ) pap test was stacy kevin with the use of an image guide akua huerta. Not Available [facility] ([facility]) [address] [facility], [place], [address], 03/21/2025 18:16:09 03/20/20 25 03/21/2025 IGP, RFX APTIM A HPV ASCU . Commen t The HPV DNA refle x crite fidel were not met with this speci men resul t there fore, no HPV testi ng was perfo rmed. Not Available [facility] ([facility]) [address] [facility], [place], [address], 03/21/2025 18:16:09 10/20/19 22 10/19/2021 [place], breas t No observ ation record ed. [address] [place], [address], 10/19/2021 14:00:43 04/14/20 22 04/12/2022 MAMMO , jensene sagar, digit al, bilat eral No observ ation record ed. [address] [place], [address], 04/14/2022 08:34:33 06/11/20 24 05/31/2024 MAMMO , stacy keith, digit al, bilat eral No observ ation record ed. [address] [place], [address], 06/11/2024 11:25:06 06/04/20 25 06/02/2025 MAMMO , ejnsene sagar, digit al, bilat eral No observ ation record ed. [email or web address] [address] [place], [address], 06/05/2025 07:44:30 Result Notes None recorded. Problems Name Problem SNOMED Code Status Onset Date Resolution Date Notes Provider Name and Address Organization Details Recorded Time Atrophic vaginitis 91047232 Active 2019 Not Available [facility] 1 10:08:30 Menopausal syndrome 891913851 Active 2019 Not Available [facility] 1 10:08:30 Osteopenia 257236999 Active 2019 Not Available [facility] 1 10:08:30 Suspected COVID-19 498144530 Active 2019 Not Available [facility] 10:08:30 Suspected COVID-19 147925431 Active 2019 Not Available [facility] 1 10:08:30 History of dysplasia of cervix 196879476 Active 2021 Sierra Diehl MD [address] [facility] [address], [place], [address] , [place] - [facility], 2 13:34:02 Problem Notes None recorded. Procedures Surgical History Date Name Laterality Status Provider Name and Address Organization Details Recorded Time 04/12/20 24 Most Recent Mammogram completed Brandee Lugo [facility], 03/20/2025 13:31:52 10/01/19 00 cholecystectomy completed Brandee Lugo [facility], 02/04/2020 14:13:26 04/03/19 87 delivery completed Brandee Sim in [facility], 02/04/2020 14:12:58 01/19/19 83 Nipple/areola reconstruction completed Brandee Lugo [facility], 02/04/2020 14:14:01 procedure on ankle completed Roberto Lugo [facility], 03/16/2023 09:07:05 Imaging Results None recorded. Procedure Notes None recorded. Medical Equipment None Reported. Allergies Allergen ID Allergen Name Allergen Category Reaction Reaction Severity Criticality Documentation Date Start Date Code Code System Note Provider Name and Address Organization Details Recorded Time 93382 Reglan medicatio n confusion Not available Not available 02/04/2020 9230 RxNorm Brandee David millard [place] - [facility], 0 14:01:28 Medications Name Sig Start Date [...] and Address Organization Details Last Updated DateTime 2 160.02 cm 30.5 kg/m2 08846.8 9 g 97.3 [degF] 85 /min 139/80 mm[Hg] Nguyen Sim in [facility], 2 13:09:24 Date Recorded Body height Body mass index (BMI) Body weight Heart rate Systolic And Diastolic Provider Name and Address Organization Details Last Updated DateTime 03/15/2022 160.02 cm 30.3 kg/m2 15460.3 g 82 /min 133/71 mm[Hg] Nguyen Sim in [facility], 03/15/2022 13:51:35 Date Recorded Body weight Body mass index (BMI) Body height Heart rate Systolic And Diastolic Provider Name and Address Organization Details Last Updated DateTime 03/16/2023 16074.26 g 31.2 kg/m2 160.02 cm 85 /min 111/55 mm[Hg] Nguyen Sim in [facility], 03/16/2023 09:06:11 Date Recorded Heart rate Body weight Body mass index (BMI) Body height Systolic And Diastolic Provider Name and Address Organization Details Last Updated DateTime 03/19/2024 90 /min 31089.17 g 29.5 kg/m2 162.56 cm 135/73 mm[Hg] Brandee Sim in [facility], 03/19/2024 13:16:50 Date Recorded Body height Body mass index (BMI) Body weight Heart rate Systolic And Diastolic Provider Name and Address Organization Details Last Updated DateTime 03/20/2025 162.56 cm 30.2 kg/m2 44441.26 g 78 /min 125/77 mm[Hg] Brandee Sim in [facility], 03/20/2025 13:27:02 Social History Question Answer Notes LastModified by Organizat ion Details LastModified Time Tobacco Smoking Status Never Smoker Not Available [facility] 05/19/2020 03:19:42 Do You Have An Advance Directive? Yes [id number] Information not available 05/19/2020 How Many Years Have You Consumed Alcohol? 39 Information not available 08/26/2021 What Is Your Level Of Caffeine Consumption? Occasional [id number] Information not available 05/19/2020 How Much Tobacco Do You Chew? None [id number] Information not available 05/19/2020 In The 14 Days Before Symptom Onset, Have You Had Close Contact With A Laboratory-confir med COVID-19 While That Case Was Ill? No [id number] Information not available 05/19/2020 If Patient Spent Time In [facility] - Does The Patient Live In [facility]? No Information not available 02/04/2020 In The 14 Days Before Symptom Onset, Have You Had Close Contact With A Person Who Is Under Investigation For COVID-19 While That Person Was Ill? No [id number] Information not available 05/19/2020 In The 14 Days Before Symptom Onset, Did The Patient Spend Time In [facility]? No Information not available 02/04/2020 Have You Been To An Area Known To Be High Risk For COVID-19? No [id number] Information not available 05/19/2020 What Type Of Diet Are You Following? REGULAR [id number] Information not available 05/19/2020 Which Illicit Or Recreational Drugs Have You Used? No [id number] Information not available 05/19/2020 Do You Reside In Or Have You Traveled To An Area Where Ebola Virus Transmission Is Active? No [id number] Information not available 05/19/2020 Education 4 Year College Informatio n not available 02/04/2020 What Is The Highest Grade Or Level Of School You Have Completed Or The Highest Degree You Have Received? [id number] Information not available 03/09/2021 How Many Days In The Past Year Have You Had A Heavy Drinking Consumption (4+ Female, 5+ Male)? 0 Information no t available 02/04/2020 Are There Any Guns Present In Your Home? No [id number] Information not available 05/19/2020 High Number Of [...] available 02/04/2020 Are You Sexually Active? Yes [id number] Information not available 05/19/2020 Smoke Alarm In Home Yes Information not available 02/04/2020 How Much Tobacco Do You Smoke? No [id number] Information not available 05/19/2020 General Stress Level Medium Information not available 02/04/2020 Do You Use Sunscreen Routinely? Yes [id number] Information not available 05/19/2020 Have You Recently [...] used smokeless tobacco? Never used smokeless tobacco [id number] Information not available 05/19/2020 Are you currently employed? No Information not available 03/09/2021 What is your occupation? Retired Information not available 03/09/2021 Do you or have you ever used e-cigarettes or vape? Never used electronic cigarettes [id number] Information not available 05/19/2020 What is your exercise level? Moderate Information not available 03/09/2021 Mental Status Question Answer Note LastModified by Organization D etails LastModified Time Do you feel stressed (tense, restless, nervous, or anxious, or unable to sleep at night)? [id number] Information not available 03/09/2021 Family History Relationship [...] quadrivalent, preservative 1 completed [place] Sk[place] in [facility], 03/16/2023 09:04:53 Influenza, split virus, quadrivalent, PF 1 completed [place] in [facility], 03/16/2023 09:04:53 varicella 1 completed [place] in [facility], 03/16/2023 09:04:53 Influenza, split virus, quadrivalent, preservative 1 completed [place] in [facility], 03/16/2023 09:04:53 Influenza, recombinant, quadrivalent, PF 0 completed [place] in [facility], 03/16/2023 09:04:53 zoster recombinant 1 completed [place] in [facility], 03/16/2023 09:04:53 zoster recombinant 1 completed [place] in [facility], 03/16/2023 09:04:53 COVID-19, mRNA, LNP-S, PF, 100 mcg/0.5mL dose or 50 mcg/0.25mL dose 2 completed [place] in [facility], 03/16/2023 09:04:53 COVID-19, mRNA, LNP-S, PF, 100 mcg/0.5mL dose or 50 mcg/0.25mL dose 1 completed [place] in [facility], 03/16/2023 09:04:53 COVID-19 vaccine, vector-nr, rS-Ad26, PF, 0.5 mL 1 completed [place] in [facility], 03/16/2023 09:04:53 Tdap 9 completed [place] in [facility], 03/16/2023 09:04:53 Tdap 4 completed [place] in [facility], 03/16/2023 09:04:53 Influenza, split virus, trivalent, preservative 3 completed [place] in [facility], 03/16/2023 09:04:53 Influenza, MDCK, quadrivalent, PF 2 completed Brandee Bowersywalessia millard [place] - [facility], 03/19/2024 13:18:05 COVID-19, mRNA, LNP-S, bivalent, PF, 30 mcg/0.3 mL dose 2 completed Brandee Colemanzywor null [place] - [facility], 03/19/2024 13:18:05 Tdap 4 completed Not Available [facility] 03/20/2025 13:11:47 COVID-19, mRNA, LNP-S, PF, 50 mcg/0.5 mL 4 completed Not Available [facility] 03/20/2025 13:11:47 Influenza, split virus, quadrivalent, PF 3 completed Not Available [facility] 03/20/2025 13:11:47 COVID-19, mRNA, LNP-S, PF, refugio-sucrose, 30 mcg/0.3 mL 3 completed Not Available [facility] 03/20/2025 13:11:47 Influenza, split virus, trivalent, PF 4 completed Not Available [facility] 03/20/2025 13:11:47 Past Encounters Encounter ID Performer Location Encounter Start Date Encounter Closed Date Diagnosis/Indication Diagnosis SNOMED-CT Code Diagnosis ICD10 Code Diagnosis IMO Codes Diagnosis Note [id number] MD SIERRA Babin MD [address] [place] [address],[place] [address] 02/04/2020 13:50:05 02/04/2020 15:31:07 Specialized medical examination 12321084 Z01.419 Screening mammography 24 752951 Z12.31 Screening for osteoporosis 669490560 Z13.820 Atrophic vaginitis 39473 000 N95.2 [id number] MD SIERRA Babin MD [address] [place] [address],[place] [address] 02/13/2020 12:58:01 02/13/2020 14:23:12 Menopausal syndrome 993052736 N95.1 [id number] MD SIERRA Babin MD [address] [place] [address],[place] [address] 03/03/2020 12:50:51 03/03/2020 14:06:43 Osteopenia 248571970 M85.851 Suspected COVID-19 33165 4004 Z03.818 [id number] MD SIERRA Babin MD [address] [place] [address],[place] [address] 03/09/2021 11:01:05 03/09/2021 11:39:16 Specialized medical examination 51813169 Z01.419 Screening mammography 24 391674 Z12.31 Menopausal syndrome 1237 49942 N95.1 [id number] MD SIERRA Babin MD [address] [place] [address],[place] [address] 08/26/2021 13:05:03 08/26/2021 14:11:14 Atypical squamous cells of undetermined significance on cervical Papanicolaou smear 262271794 R87.610 History of dysplasia of cervix 511990077 Z87.410 [id number] MD SIERRA Babin MD [address] [place] [address], [place] [address] 03/15/2022 13:47:47 03/15/2022 14:50:10 Specialized medical examination 53741283 Z01.419 Screening mammography 24 577062 Z12.31 Menopausal syndrome 1237 12638 N95.1 [id number] MD SIERRA Babin MD [address] [place] [address], [place] [address] 03/16/2023 09:01:01 03/16/2023 11:16:30 Specialized medical examination 73837373 Z01.419 Screening for malignant neoplasm of rectum 599196989 Z12.12 Screening mammography 24 719216 Z12.31 Menopausal syndrome 1237 83519 N95.1 [id number] MD SIERRA Babin MD [address] [place] [address],[facility] [place] [address] 03/19/2024 13:10:09 03/19/2024 14:43:37 Menopausal syndrome 109543559 N95.1 Specialize d medical examination 46840706 Z01.419 Screening for malignant neoplasm of rectum 609270559 Z12.12 Screening mammography 24 576225 Z12.31 [id number] MD SIERRA Babin MD [address] [place], [place] [address]E [place] [address] 03/20/2025 13:10:15 03/20/2025 15:31:48 Menopausal syndrome 131353479 N95.1 Specialize d medical examination 88926828 Z01.419 Screening for malignant neoplasm of rectum 058065742 Z12.12 Screening mammography 24 174871 Z12.31 History of dysplasia of cervix 129833960 Z87.410 Health Concerns Section Related Observation LastModified by Organization Detai ls LastModified Time None Recorded Concern Status LastModified by Organization Details LastModified Time None Recorded Advance Directives Directive Y: Payers Insurance Date Sequence Insurance Name Policy Number Policy Luz Covered Member ID Luz Member ID Guarantor Name 03/17/2025 1 LIDYA [id number] Nakul Bernard [id number] Olimpia Bernard Notes Date Note Type Note Provider Name and Address Organization Details Recorded Time 08/26/2021 text/html She is here for repeat pap after pap with ASCUS with negtive HPV. She notes tht in her past history she had mild dysplasia. Sierra Diehl MD [address], [place], [id number], [place], 08/26/2021 13:55:39 03/15/2022 text/html She is here [...] MD [address], [place], [phone], [facility], 03/15/2022 14:35:29 03/16/2023 text/html She is here for annual exam, doing well on HRT and elects to continue, no bleeding. Sierra Diehl MD [address], [place], [id number], [facility], 03/16/2023 09:33:45 03/19/2024 text/html She is here [...] MD [address], [place], [phone], [place] [facility], 03/19/2024 13:41:47 03/20/2025 text/html She is here for annual, doing well on her HRT. Personal history of cervical dysplasia, needs annual pap. Sierra Diehl MD [address], [place], [phone], [place] [facility], 03/20/2025 13:50:02 OBGyn Episode No OBEpisode recorded.
--- OUTSIDE RECORDS SUMMARY | 2025-06-10 16:26 | XMS_ITS | Encounter Summary ---
Author Organization [facility] Address [address] [place] [address] Phone Care Team Providers Care Wall Worker Name Role Phone Tello Tapia Primary Care Provider + Reason for Referral * MRI/CAT Scan - Closed Specialty Diagnoses / Procedures Referred By Contac t Referred To Contact Radiology Diagnoses Epigastric abdominal pain Nausea Dilated cbd, acquired Procedures MRI Cholangiopancreatography (MRCP) CHG MRI, ABDOMEN, COMBO Adele Navarro PA [address] [place] [address] Phone: tel: fax: Referral ID Status Reason Start Date Expiration Date Visits Re quested Visits Authorized [id number] Closed 10/15/2023 04/12/2024 1 1 Encounter Details Date Type Department Care Team (Latest Contact Info) Description 10/13/2023 Transcribe Orders Virtual Department [address] [place] [address] Adele Navarro PA [address] [place] [address] Epigastric abdominal pain (Primary Dx); Nausea; Dilated cbd, acquired Social History Tobacco Use Types Packs/Day Years Used Date Smoking Tobacco: Never Assessed Education Answer Date Recorded Are you interested in more education? Not on lino e 11/12/2022 Are you concerned about learning? Not on file 11/12/2022 No 11/12/2022 No 11/12/2022 Digital Access Answer Date Recorded No 12/13/2022 No 12/13/2022 Reliable internet access at home? Not on file 12/13/2022 Device with a working camera? Not on file Comments Unknown Sex and Gender Information Value Date Recorded Sex Assigned at Not on file Legal Sex Female 10:35 AM EST Gender Identity Not on file Sexual Orientation Not on file documented as of this encounter Plan of Treatment Not on file documented as of this encounter Results * MRI CHOLANGIOPANCREATOGRAPHY (MRCP) WITH AND WITHOUT CONTRAST (11/10/2023 10:08 AM EDT) Anatomical Region Laterality Modality Pancreas, Biliary Magnetic Reson ance 11/11/2023 5:33 AM EDT Impressions 11/11/2023 1:14 PM EDT No significant change in mild central intrahepatic and extrahepatic bile duct prominence, likely related to postcholecystectomy reservoir effect. No obstructing stone or mass identified. Narrative 11/11/2023 1:14 PM EDT MRI CHOLANGIOPANCREATOGRAPHY (MRCP) WITH AND WITHOUT CONTRAST Referring clinician's provided indication for this examination in Epic: Outside Radiology Order; epigastric abdomen pain TECHNIQUE: Multiplanar MR imaging of the abdomen was performed using T1, T2, fat saturated, and diffusion weighted techniques. 2D and 3D MRCP sequences were performed. Dynamic multiphase imaging was also performed after administration of an intravenous gadolinium contrast agent. COMPARISON: MRI CHOLANGIOPANCREATOGRAPHY (MRCP) WITHOUT CONTRAST FINDINGS: Lower Chest: Within normal limits. Liver: No global signal abnormality or suspicious focal lesion. Biliary: No significant change in mild prominence of common hepatic duct measuring up to 11 mm diameter, with expected gradual tapering of the downstream common bile duct. Similar mild central intrahepatic bile duct prominence. No biliary filling defect. Prior cholecystectomy. Spleen: No splenomegaly or suspicious focal lesion. Pancreas: No solid mass or main duct dilation. Adrenal Glands: No nodule. Kidneys/Ureters: No solid renal mass or hydronephrosis. Peritoneum/Retroperitoneum: Trace pelvic free fluid. Lymph Nodes: No lymphadenopathy. Vessels: No abdominal aortic aneurysm. Bones/Soft Tissues: No suspicious osseous lesion. Degenerative changes. Grade 1 spondylolytic spondylolisthesis of L5 on S1. Small fat-containing umbilical and periumbilical hernias. Procedure Note Can Valero MD - 11/11/2023 MRI CHOLANGIOPANCREATOGRAPHY (MRCP) WITH AND WITHOUT CONTRAST Referring clinician's provided indication for this examination in Epic:Outside Radiology Order; epigastric abdomen pain TECHNIQUE: Multiplanar MR imaging of the abdomen was performed using T1,T2, fat saturated, and diffusion weighted techniques. 2D and 3D MRCPsequences were performed. Dynamic multiphase imaging was also performedafter administration of an intravenous gadolinium contrast agent. COMPARISON: MRI CHOLANGIOPANCREATOGRAPHY (MRCP) WITHOUT [id number] FINDINGS: Lower Chest: Within normal limits. Liver: No global signal abnormality or suspicious focal lesion. Biliary: No significant change in mild prominence of common hepatic ductmeasuring up to 11 mm diameter, with expected gradual tapering of thedownstream common bile duct. Similar mild central intrahepatic bile ductprominence. No biliary filling defect. Prior cholecystectomy. Spleen: No splenomegaly or suspicious focal lesion. Pancreas: No solid mass or main duct dilation. Adrenal Glands: No nodule. Kidneys/Ureters: No solid renal mass or hydronephrosis. Peritoneum/Retroperitoneum: Trace pelvic free fluid. Lymph Nodes: No lymphadenopathy. Vessels: No abdominal aortic aneurysm. Bones/Soft Tissues: No suspicious osseous lesion. Degenerative changes.Grade 1 spondylolytic spondylolisthesis of L5 on S1. Small fat-containingumbilical and periumbilical hernias. IMPRESSION: No significant change in mild central intrahepatic and extrahepatic bileduct prominence, likely related to postcholecystectomy reservoir effect.No obstructing stone or mass identified. Adele EPSTEIN IMG MR ABDOMEN Final Resul t documented in this encounter Visit Diagnoses Diagnosis Epigastric abdominal pain- Primary Abdominal pain, epigastric Nausea Nausea alone Dilated cbd, acquired Epigastric abdominal pain Abdominal pain, epigastric Nausea Nausea alone Dilated cbd, acquired documented in this encounter Care Teams Wall Worker Relationship Specialty Start Date End Date Tello Tapia PA [address] [place] [address] PCP - General Physician Squad Boss 08/25/22 documented as of this encounter Additional Source Comments The information contained in this document represents components of the legal health record. It is not the complete legal health record.[facility]
--- OUTSIDE RECORDS SUMMARY | 2025-06-10 16:26 | XMS_ITS | Encounter Summary ---
Author Organization [facility] Address [address] [place] [address] Phone Care Team Providers Care Day Guard Name Role Phone Tello Tapia Primary Care Provider + Encounter Details Date Type Department Care Team (Late st Contact Info) Description 08/25/2022 Transcribe Orders [facility] Linda [address] [place] [address] [address] [place] [address] Anastasiya Pineda PA [address] [place] [address] [email or web address] Abdominal pain, epigastric (Primary Dx); Right upper quadrant pain Social History Tobacco Use Types Packs/Day Years Used Date Smoking Tobacco: Never Assessed Comments Unknown Sex and Gender Information Value Date Recorded Sex Assigned at Not on file Legal Sex Female 10:35 AM EST Gender Identity Not on file Sexual Orientation Not on file documented as of this encounter Plan of Treatment Not on file documented as of this encounter Results * GGT (Gamma glutamyl transferase) (08/25/2022 10:46 AM EST) GGT 16 7 - 33 U/L [facility] Blood 08/25/2022 10:4 6 AM EST 08/25/2022 10:50 AM EST us Anastasiya EPSTEIN LAB BLOOD BKR ORDERABLES Final Result [address] [address] * (ABNORMAL) C-Reactive Protein (08/25/2022 10:46 AM EST) C REACTIVE PROTEIN 9.6(H) 0.0 - 4.0 mg/L [facility] Blood 08/25/2022 10:4 6 AM EST 08/25/2022 10:50 AM EST Anastasiya EPSTEIN LAB BLOOD BKR ORDERABLES Final Result Performing Organization Address City/[facility]/ZIP Co de Phone Number [address] [address] * Comprehensive metabolic panel (08/25/2022 10:46 AM EST) SODIUM 138 133 - 146 mmol/L [facility] POTASSIUM 4.0 3.3 - 5.1 mmol/L [facility] CHLORIDE 101 96 - 108 mmol/L [facility] CO2 29 21 - 35 mmol/L [facility] BUN 14 6 - 19 mg/dL [facility] CREATININE 0.90 0.5 - 1.5 mg/dL [facility] GLUCOSE 79 70 - 99 mg/dL [facility] ALBUMIN 3.9 3.9 - 4.8 g/dL [facility] TOTAL PROTEIN 7.3 6.5 - 8.0 g/dL [facility] CALCIUM 9.5 8.4 - 10.3 mg/dL [facility] ALKALINE PHOSPHATASE 112 39 - 117 U/L [facility] TOTAL BILIRUBIN 0.2 0.0 - 1.2 mg/dL [facility] AST 34 0 - 37 U/L [facility] ALT 15 0 - 40 U/L [facility] GLOBULIN 3.4 1 - 4.8 g/dL [facility] EGFR 73 >59 mL/min/1.7 3m2 [facility] Comment:Estimated glomerular filtration rate calculated using the CKD-EPI refit equation. ANION GAP 12 10 - 20 mmol/L [facility] Blood 08/25/2022 10:4 6 AM EST 08/25/2022 10:50 AM EST us Anastasiya EPSTEIN LAB BLOOD BKR ORDERABLES Final Result [facility] [address] [place] [address] * CBC and differential (08/25/2022 10:46 AM EST) WBC 5.66 4.00 - 11.00 K/uL [facility] RBC 4.20 3.72 - 5.30 M/uL [facility] HGB 13.0 11.4 - 15.9 g/dL [facility] HCT 39.9 34.2 - 46.8 % [facility] PLT 303 140 - 430 K/uL [facility] MCV 95.0 78.0 - 97.0 fL [facility] MCH 31.0 25.0 - 33.0 pg [facility] MCHC 32.6 32.0 - 36.0 g/dL [facility] RDW 13.1 11.0 - 16.0 % [facility] MPV 9.7 8.4 - 12.8 fl [facility] DIFF METHOD Auto [facility] NEUTS 68.7 43.0 - 75.0 % [facility] LYMPHS 20.8 18.2 - 47.4 % [facility] MONOS 7.1 4.00 - 11.00 % [facility] EOS 2.5 0.0 - 8.0 % [facility] BASOS 0.5 0.0 - 2.0 % [facility] Granulocytes, immature (%) 0.4 0.0 - 0.9 % [facility] ABSOLUTE NEUTS 3.89 1.80 - 7.70 K/uL [facility] ABSOLUTE LYMPHS 1.18 1.00 - 3.10 K/uL [facility] ABSOLUTE MONOS 0.40 0.20 - 0.80 K/uL [facility] ABSOLUTE EOS 0.14 0.00 - 0.80 K/uL [facility] ABSOLUTE BASOS 0.03 0.00 - 0.09 K/uL [facility] Granulocytes, immature 0.02 0.00 - 0.05 K/uL [facility] Blood 08/25/2022 10:4 6 AM EST 08/25/2022 10:50 AM EST Anastasiya EPSTEIN LAB BLOOD BKR ORDERABLES Final Result Performing Organization Address [facility] de Phone Number [address] [address] * Lipase (08/25/2022 10:46 AM EST) LIPASE 32 16 - 63 U/L [facility] Blood 08/25/2022 10:4 6 AM EST 08/25/2022 10:50 AM EST Anastasiya EPSTEIN LAB BLOOD BKR ORDERABLES Final Result Performing Organization Address [facility] Phone Number [address] [address] * Amylase (08/25/2022 10:46 AM EST) AMYLASE 68 28 - 100 U/L [facility] Blood 08/25/2022 10:4 6 AM EST 08/25/2022 10:50 AM EST Anastasiya EPSTEIN LAB BLOOD BKR ORDERABLES Final Result Performing Organization Address [facility] de Phone Number [address] [address] documented in this encounter Visit Diagnoses Diagnosis Abdominal pain, epigastric- Primary Right upper quadrant pain Abdominal pain, right upper quadrant documented in this encounter Care Teams Day Guard Relationship Specialty Start Date End Date Tello Tapia PA [address] [place] [id number] PCP - General Physician Patient Financial Counselor 08/25/22 documented as of this encounter Additional Source Comments The information contained in this document represents components of the legal health record. It is not the complete legal health record.[facility]
--- OUTSIDE RECORDS SUMMARY | 2025-06-10 16:26 | XMS_ITS | Encounter Summary ---
Author Organization [facility] Address [address] [place] [address] Phone Care Team Providers Care Community Outreach Coordinator Name Role Phone Tello Tapia Primary Care Provider + Encounter Details Date Type Department Care Team (Late st Contact Info) Description 10/13/2023 Procedure Pass [facility], [address] [address] Social History Tobacco Use Types Packs/Day Years [...] on filedocumented in this encounter Care Teams Community Outreach Coordinator Relationship Specialty Start Date End Date Tello Tapia PA [facility] [place] [address] PCP - General Physician Weaver Hand 08/25/22 documented as of this encounter Additional Source Comments The information contained in this document represents components of the legal health record. It is not the complete legal health record.[facility]
--- OUTSIDE RECORDS SUMMARY | 2025-06-10 16:26 | XMS_ITS | Clinical Summary ---
Author Organization [facility] Address [address] [place] [address] Phone Care Team Providers Care Remote Inpatient Coder Name Role Phone Tello Tapia Primary Care Provider + Social History Tobacco Use Types Packs/Day Years [...] on file Sexual Orientation Not on file Last Filed Vital Signs Vital Sign Reading Time Taken Comments Blood Pressure - - Pulse - - Temperature - - Respiratory Rate - - Oxygen Saturation - - Inhaled Oxygen Concentration - - Weight 77.1 kg (170 lb) 11/06/2023 1:05 PM EDT Height 162.6 cm (5' 4 ) 11/06/2023 1:05 PM EDT Body Mass Index 29.18 11/06/2023 1:05 PM EDT Plan of Treatment Not on file Medical Devices Not on file Insurance [employer] PPO CIGNA PPO CIGNA PPO CIGNA PPO CIGNA PPO CIG[employer] PPO Care Teams Remote Inpatient Coder Relationship Specialty Start Date End Date Tello Tapia PA [address] [place] [address] PCP - General Physician Document Control Clerk 08/25/22 Additional Source Comments The information contained in this document represents components of the legal health record. It is not the complete legal health record.[facility]
== END 2025-06-10 12:49 | disposition home or self-care (01) ==
LOC: HO.LAB 12:48
PROVIDERS: PCP Physician Assistant; Visit Provider Physician Assistant
DX: E53.8 Deficiency of other specified B group vitamins (principal)
CPT/HCPCS: 36415; 82607; 82746